=== PATIENT | male | born 1960 | race Caucasian/White ===

== ENCOUNTER 2024-11-29 10:17 | Outpatient (AMB) | payer MEDICARE, SELFPAY ==
--- OUTSIDE RECORDS SUMMARY | 2024-11-29 11:19 | XMS_ITS ---
[facility] Name [facility] Organization Unknown History of Medication Use Medication Directions Dispensed Refills Start Date End Date Stat No known medications No known medications 04/22/2024 active betamethasone acetate-betamethason e sodium phosphate (CELESTONE) injection 3 mg 3 mg, Intra-articular, Once PRN Procedure, Starting on Fri09/02/23 at 1000, For 1 dose 09/09/2023 completed Problems Problem Status Onset Date Problem Type Date of Resoluti on Source Leg pain, right active EncounterDiagnosisAct CCT
--- NOTE | 2024-11-29 11:26 | AM.OFFWIN_ITS ---
Intake Vital Signs 11/29/24 11:27 Weight 268 lb BP 110/74 Blood Pressure Location Rt brachial Position Sitting Pulse 97 Pulse Source Pulse Oximeter Temp 98.8 F Temp Source Oral Pulse Oximetry (%) 96 Oxygen Delivery Method Room Air Intake Visit Reasons: EP Congestion, aches, fatigue, cough Intake Note: Patient here for cough, wheezing,eye pressure, nausea and SOB that has been present since over the weekend. Patient Tobacco Use Status: Never used Tobacco Allergies morphine [Morphine] Allergy (Unknown, Unverified 11/29/24 11:50) ITCH Medication List - Last Reconciled 11/29/24 by Shala Posada PA-C amlodipine 10 mg PO DAILY atorvastatin 40 mg PO DAILY gabapentin 300 mg PO BEDTIME tamsulosin 0.4 mg PO BEDTIME Do you need a note to return to daycare/school/sports/work: No HPI EP Congestion, aches, fatigue, cough HPI Details The patient is a 64-year-old male presenting with shortness of breath and a cough with phlegm. Symptoms initiated last Friday with a sore throat, progressively worsening to include substantial chest phlegm and lethargy, with improvements when drinking hot coffee. The patient experiences sinus pressure characterized by pain in the orbicular sockets, as if force were exerted on the eyes, accompanied by headaches attributed to this pressure. While there were no fever episodes, the patient reports postnasal drip and persistent phlegm in the throat and chest. The cough is productive, and the patient uses coffee to help loosen mucus. No recent illness or travel exposure is noted, and there have been no incidences of vomiting or other gastrointestinal symptoms. The patient denies any history of COPD or asthma and reported no smoking. No history of congestive heart failure is present. Denies CP, FRANCIS, orthopnea, N/V/D, black or bloody stools or any other symptoms complaints or concerns at this time. [facility] Social History Patient Tobacco Use Status: Never used Tobacco Review of Systems Const Details: - Respiratory: Reports wheezing, particularly when lying down. - Cardiovascular: Denies chest pain, shortness of breath, or leg swelling. - Gastrointestinal: Denies black or bloody stools, vomiting. - General: Reports feeling lethargic. Physical Exam Vital Signs: Last Vital Signs Temp 98.8 F 11/29/24 11:27 Pulse 97 11/29/24 11:27 BP 110/74 11/29/24 11:27 Pulse Ox 96 11/29/24 11:27 Oxygen Delivery Method Room Air 11/29/24 11:27 Const Other: Appearance: Alert. Oriented X3. No acute distress. Head: Normal external exam. Normocephalic. Atraumatic. Sinus pressure pain noted. Eyes: Pupils are equal, round, and reactive to light. Extraocular movements intact. Conjunctiva and sclera normal. Eyelids normal. Sockets and eyeballs are very sore. Ears: External auditory canal normal. Tympanic membranes normal. Throat: Pharynx normal. Uvula midline. Moist mucous membranes. No trismus noted. No drooling noted. No muffled voice noted. Throat soreness noted. Neck: Normal inspection. Neck supple. Full range of motion. No adenopathy. Thyroid Normal. No meningeal signs. No neck mass noted. Cardiovascular: Normal heart rate and rhythm. Heart sound normal. No murmurs noted. Pulses normal throughout. Respiratory: No respiratory distress. Painless inspiration. Breath sounds normal. Wheezing noted when lying down. Chest nontender. No accessory muscle usage noted or decreased air movement noted. Back: No costovertebral angle tenderness. Full range of motion noted. Skin: Skin warm and dry. Normal skin color. Normal skin turgor. No rashes/lesions/lacerations noted. Extremities: No lower extremity edema. Extremities exhibit normal range of louise on. Extremities nontender. History of reconstructive surgery on the Achilles tendon noted. Neuro: Oriented X 3. No motor deficit. No sensory deficit. Reflexes normal. Assessment & Plan Assessment & Plan (1) Bronchitis: Code(s): J40 - Bronchitis, not specified as acute or chronic Plan: - Initiate Augmentin Amoxicillin/Clavulanate) 875 mg, twice daily for 10 days. - Prescribe a Z-Enoc Azithromycin) with a loading dose of two tablets on the first day, followed by one tablet daily for the next four days. - Recommend Prednisone 40 mg daily for five days. - Prescribe Albuterol inhaler for symptomatic wheezing relief. - Proceed with medications and evaluate improvement before considering additional diagnostics such as chest X-ray if symptoms persist. I discussed with the patient the possible diagnosis of acute bronchitis and sinusitis contributing to his symptoms of cough, phlegm, and sinus pressure. I explained the treatment plan involving prescribed antibiotics to address the likely bacterial infection and steroids to reduce inflammation in the airways. The patient was advised on using an Albuterol inhaler to alleviate any episodes of wheezing. I reviewed the benefits and potential side effects of the medications and the importance of adherence to the regimen. The patient consented to this management plan, understanding the follow-up procedures if symptoms do not improve. Patient was informed and verbally consented to the use of an ambient scribe for clinic note documentation during this visit. Plan Augmentin 875 mg BID x 10 days, zpack, albuterol inhaler and steroids x 5 days Patient Instructions: - Take Augmentin as directed, twice a day for 10 days. - Start Z-Enoc today with two tablets, then switch to one tablet daily for four more days. - Use Prednisone daily for five days and complete the course. - Use the Albuterol inhaler as needed for wheezing. - Monitor symptoms; if no improvement, return for further evaluation. - Report any new or worsening symptoms promptly. Coding Level of Care Code New Pt Level 4 (45927) Diagnoses Bronchitis J40
[2024-11-29 11:27] VITALS: BP 110/74; PULSE 97; TEMP 37.1; O2SAT 96
== END 2024-11-29 12:29 | disposition home or self-care (01) ==
PROVIDERS: Visit Provider Physician Assistant Medical
DX: J40 Bronchitis, not specified as acute or chronic (principal)

== ENCOUNTER → 2024-11-29 10:17 | Outpatient (BNVA) | payer MEDICARE, SELFPAY | PROVIDERS: Visit Provider Physician Assistant Medical | DX: J40 Bronchitis, not specified as acute or chronic (principal) | CPT/HCPCS: 99202 ==

== ENCOUNTER 2025-01-11 08:05 | Emergency (ER) | payer MEDICARE, SELFPAY ==
--- NOTE | ~2025-01-11 | CT_ITS ---
EXAMINATION: CT HEAD WITHOUT CONTRAST CLINICAL INFORMATION: fall on ice +head stirke COMPARISON: CT report dated July 21, 2012. TECHNIQUE: Contiguous axial imaging was performed from the skull base to vertex without intravenous administration of contrast. This CT examination was performed using dose optimization techniques as appropriate, variously including the following: *Automated exposure control *Adjustment of mA and/or kV according to patient size (this includes techniques or standardized protocols for targeted exams where dose is matched to indication/reason for exam; i.e. extremities or head) *Use of iterative reconstruction technique DLP: 939.88 mGy-cm FINDINGS: Bony calvarium is intact. Skull base is intact. No acute intracranial hemorrhage, mass effect, midline shift, hydrocephalus or herniation. Multifocal patchy and confluent deep periventricular white matter hypodensities involving centrum semiovale and melgar radiata, the most conspicuous in the left frontal region. Old lacunar infarcts, basal ganglia and extracapsular. Posterior cranial fossa contents demonstrated no acute intracranial hemorrhage or mass effect. Calcified plaques in the cavernous supraclinoid segments both ICA. Sellar/suprasellar region demonstrated no gross masses or hemorrhage. Craniocervical junction is intact with normal alignment. No air-fluid levels in the included paranasal sinuses. Tympanic cavities and mastoid cells are aerated. CT/CT head/brain wo IV con IMPRESSION: No acute fracture, bony calvarium. No acute intracranial hemorrhage. Small vessel occlusive disease. Superimposed acute stroke/nonhemorrhagic ischemia cannot be excluded. Electronically signed by: Seth Akers MD 01/11/2025 01:18 PM [facility] [place]
--- NOTE | ~2025-01-11 | CT_ITS ---
EXAMINATION: CT CERVICAL SPINE WITHOUT CONTRAST CLINICAL INFORMATION: Fall on ice, neck pain. COMPARISON: None available. TECHNIQUE: Spiral CT imaging of the cervical spine performed in axial plane without contrast. Multiplanar reformatted images were constructed from the axial data set. This CT examination was performed using dose optimization techniques as appropriate, variously including the following: *Automated exposure control *Adjustment of mA and/or kV according to patient size (this includes techniques or standardized protocols for targeted exams where dose is matched to indication/reason for exam; i.e. extremities or head) *Use of iterative reconstruction technique FINDINGS: CORONAL ALIGNMENT: -Normal SAGITTAL ALIGNMENT: -Normal C1-C2 AND CRANIOCERVICAL JUNCTION: -Intact and aligned. VERTEBRAL BODIES AND FACETS: -No fracture, compression deformity, traumatic subluxation, or suspicious bone lesion. -Normal facet alignment. Mild degenerative facet changes most notable bilaterally at C3-4. DISCS: -Mild to moderate disc space degeneration C5-6 and C6-7 with mild ventral disc osteophytic spurs. PREVERTEBRAL AND PARAVERTEBRAL SOFT TISSUES: -Normal. -Mildly heterogeneous thyroid with no discrete nodules seen. LUNG APICES: -Clear bilaterally. CT/CT cervical spine wo IV con IMPRESSION: 1. No CT evidence of acute cervical spine fracture or injury. Electronically signed by: Emil Gonzales MD 01/11/2025 01:19 PM [facility]
--- NOTE | ~2025-01-11 | XR_ITS ---
EXAMINATION: XR RIBS, LEFT CLINICAL INFORMATION: L rib pain COMPARISON: None available. TECHNIQUE: PA chest and 5 views of the left ribs were obtained. FINDINGS: Lungs are clear. No consolidation, pneumothorax, or pleural effusion. The cardiomediastinal silhouette and pulmonary vasculature are normal. Osseous structures are unremarkable. Ribs are intact. No fractures are identified. Mild calcific tendinopathy of the left rotator cuff. XR/XR ribs LT min 3V w CXR1V IMPRESSION: No acute findings in the thorax. Ribs appear intact. Electronically signed by: Emil Gonzales MD 01/11/2025 01:03 PM [facility]
--- NOTE | ~2025-01-11 | XR_ITS ---
EXAMINATION: XR SHOULDER, LEFT CLINICAL INFORMATION: fall, pain COMPARISON: None available. TECHNIQUE: Three views of the left shoulder. FINDINGS: Normal bone mineralization. No fracture, dislocation, or suspicious bone lesion. Normal alignment. The glenohumeral joint demonstrates mild to moderate degenerative arthritis with small undersurface spurs. There is subtle chondrocalcinosis present suggesting CPPD. Mild superior surface spurring of the AC joint. There is a neutral lateral acromion. No undersurface spurring. The subacromial space is preserved. Mild to moderate calcification of the supraspinatus tendon abutting the footplate insertion. Remainder of the soft tissue and bony structures appear normal. XR/XR shoulder LT min 2V IMPRESSION: 1. No fracture or dislocation. 2. Mild to moderate calcific tendinopathy of the supraspinatus tendon. 3. Mild to moderate degenerative arthritis in the glenohumeral joint. Subtle chondrocalcinosis. Electronically signed by: Emil Gonzales MD 01/11/2025 08:52 AM [facility]
[2025-01-11 08:06] VITALS: BP 154/100; PULSE 86; RESP 20; TEMP 35.4; O2SAT 98; BMI 33.4
--- OUTSIDE RECORDS SUMMARY | 2025-01-11 09:08 | XMS_ITS | Encounter Summary ---
Author Organization [facility] Address [address] [place] [address] Care Team Providers Care Science Specialist Name Role Phone Denver Arora MD Primary Care Provider [phone] Pcp, No Primary Care Provider Artemio Pino MD Primary Care Provider [phone] Encounter Details Date Type Department Care Team (Late st Contact Info) Description 08/20/2023 Scanned Document [place] [address] Chino Pereira MD [address] [place] [address] Social History Tobacco Use Types Packs/Day Years Used Date Smoking Tobacco: Never Assessed Sex and Gender Information Value Date Recorded Sex Assigned at Not on file Gender Identity Not on file Sexual Orientation Not on file documented as of this encounter Plan of Treatment Not on file documented as of this encounter Visit Diagnoses Not on filedocumented in this encounter Care Teams Science Specialist Relationship Specialty Start Date End Date Denver Arora MD [address] [place] [id number] PCP - General 06/17/23 04/19/24 Pcp, No PCP - General General Medicine 04/20/24 05/10/24 Artemio Carney MD [address] [place] [id number] PCP - General Internal Medicine 05/11/24 documented as of this encounter
--- OUTSIDE RECORDS SUMMARY | 2025-01-11 09:08 | XMS_ITS | Encounter Summary ---
Author Organization [facility] Address [address] [place] [address] Care Team Providers Care Intake Coordinator Name Role Phone Denver Arora MD Primary Care Provider [phone] Pcp, No Primary Care Provider Atremio Pino MD Primary Care Provider [phone] Encounter Details Date Type Department Care Team (Late st Contact Info) Description 08/20/2023 Scanned [place] [address] Chino Pereira MD [address] [place] [address] Social History Tobacco Use Types Packs/Day Years Used Date Smoking Tobacco: Never Assessed Sex and Gender Information Value Date Recorded Sex Assigned at Not on file Gender Identity Not on file Sexual Orientation Not on file documented as of this encounter Plan of Treatment Not on file documented as of this encounter Visit Diagnoses Not on filedocumented in this encounter Care Teams Intake Coordinator Relationship Specialty Start Date End Date Denver Arora MD [address] [place] [id number] PCP - General 06/17/23 04/19/24 Pcp, No PCP - General General Medicine 04/20/24 05/10/24 Atremio Carney MD [address] [place] [id number] PCP - General Internal Medicine 05/11/24 documented as of this encounter
--- OUTSIDE RECORDS SUMMARY | 2025-01-11 09:08 | XMS_ITS | Encounter Summary ---
Author Organization [facility] Address [address] [place] [address] Care Team Providers Care Employee Relations Consultant Name Role Phone Denver Arora MD Primary Care Provider [phone] Pcp, No Primary Care Provider Artemio Pino MD Primary Care Provider [phone] Encounter Details Date Type Department Care Team (Late st Contact Info) Description 08/29/2023 Scanned [place] [address] Chino Pereira MD [address] [place] [address] Social History Tobacco Use Types Packs/Day Years Used Date Smoking Tobacco: Never Assessed Sex and Gender Information Value Date Recorded Sex Assigned at Not on file Gender Identity Not on file Sexual Orientation Not on file documented as of this encounter Plan of Treatment Not on file documented as of this encounter Visit Diagnoses Not on filedocumented in this encounter Care Teams Employee Relations Consultant Relationship Specialty Start Date End Date Denver Arora MD [address] [place] [id number] PCP - General 06/17/23 04/19/24 Pcp, No PCP - General General Medicine 04/20/24 05/10/24 Artemio Carney MD [address] [place] [id number] PCP - General Internal Medicine 05/11/24 documented as of this encounter
--- OUTSIDE RECORDS SUMMARY | 2025-01-11 09:08 | XMS_ITS | Encounter Summary ---
Author Organization [facility] Address [address] [place] [address] Care Team Providers Care Bakery Worker Conveyor Line Name Role Phone Denver Arora MD Primary Care Provider [phone] Pcp, No Primary Care Provider Artemio Pino MD Primary Care Provider [phone] Encounter Details Date Type Department Care Team (Late st Contact Info) Description 06/02/2023 Scanned [place] [address] Chino Pereira MD [address] [place] [address] Social History Tobacco Use Types Packs/Day Years Used Date Smoking Tobacco: Never Assessed Sex and Gender Information Value Date Recorded Sex Assigned at Not on file Gender Identity Not on file Sexual Orientation Not on file documented as of this encounter Plan of Treatment Not on file documented as of this encounter Visit Diagnoses Not on filedocumented in this encounter Care Teams Bakery Worker Conveyor Line Relationship Specialty Start Date End Date Denver Arora MD [address] [place] [id number] PCP - General 06/17/23 04/19/24 Pcp, No PCP - General General Medicine 04/20/24 05/10/24 Artemio Carney MD [address] [place] [phone] PCP - General Internal Medicine 05/11/24 documented as of this encounter
--- OUTSIDE RECORDS SUMMARY | 2025-01-11 09:08 | XMS_ITS | Clinical Summary ---
Author Organization [facility] Address [address] [place] [address] Care Team Providers Care Beeswax Bleacher Name Role Phone Artemio Carney MD Primary Care Provider [phone] Allergies No known active allergies Medications No known medications Active Problems No known active problems Social History Tobacco Use Types Packs/Day Years Used Date Smoking Tobacco: Never Assessed Sex and Gender Information Value Date Recorded Sex Assigned at Not on file Gender Identity Not on file Sexual Orientation Not on file Plan of Treatment Health Maintenance Due Date Last Done Comments Hepatitis C Virus Screening 1959 HIV Screening 1972 DTaP/Tdap/Td Vaccines (1 - Tdap) 1978 Colonoscopy 2004 Pneumococcal Vaccines 50+ (1 of 1 - PCV) 2009 Zoster (Shingles) Vaccine (1 of 2) 2009 Influenza Vaccine 06/24/2024 09/15/2023, 09/15/2023 COVID-19 Vaccine (4 - 2023-2 5 season) 2024 10/12/2021, 12/20/2020, 11/22/2020 RSV Vaccine 60 years and older and Patients (1 - 1-dose 75+ series) 2034 Hepatitis B Vaccines Aged Out No long er eligible based on patient's age to complete this topic Care Teams Beeswax Bleacher Relationship Specialty Start Date End Date Artemio Carney MD [address] [place] [address] PCP - General Internal Medicine 05/11/24
--- OUTSIDE RECORDS SUMMARY | 2025-01-11 09:09 | XMS_ITS | Encounter Summary ---
Author Organization [facility] Address [address] [place] [address] Care Team Providers Care Wood Router Name Role Phone Pcp, Sangita Primary Care Provider Artemio Pino MD Primary Care Provider [phone] Encounter Details Date Type Department Care Team (Late st Contact Info) Description 04/27/2024 Scanned Document [facility] [address] Chino Pereira MD [address] [place] [address] Social History Tobacco Use Types Packs/Day Years Used Date Smoking Tobacco: Never Assessed Sex and Gender Information Value Date Recorded Sex Assigned at Not on file Gender Identity Not on file Sexual Orientation Not on file documented as of this encounter Plan of Treatment Not on file documented as of this encounter Visit Diagnoses Not on filedocumented in this encounter Care Teams Wood Router Relationship Specialty Start Date End Date Pcp, Sangita PCP - General General Medicine 04/20/24 05/10/24 Artemio Carney MD [address] [place] [address] PCP - General Internal Medicine 05/11/24 documented as of this encounter
--- OUTSIDE RECORDS SUMMARY | 2025-01-11 09:09 | XMS_ITS | Encounter Summary ---
Author Organization [facility] Address [address] [place] [address] Care Team Providers Care Small Offset Printer Name Role Phone Pcp, Sangita Primary Care Provider Artemio Pino MD Primary Care Provider Encounter Details Date Type Department Care Team (Late st Contact Info) Description 04/27/2024 Scanned Document [facility] [address] Chino Pereira MD [address] [place] [address] Social History Tobacco Use Types Packs/Day Years Used Date Smoking Tobacco: Never Assessed Sex and Gender Information Value Date Recorded Sex Assigned at Not on file Gender Identity Not on file Sexual Orientation Not on file documented as of this encounter Plan of Treatment Not on file documented as of this encounter Visit Diagnoses Not on filedocumented in this encounter Care Teams Small Offset Printer Relationship Specialty Start Date End Date Pcp, Sangita PCP - General General Medicine 04/20/24 05/10/24 Artemio Carney MD [address] [place] [address] PCP - General Internal Medicine 05/11/24 documented as of this encounter
--- OUTSIDE RECORDS SUMMARY | 2025-01-11 09:09 | XMS_ITS | Encounter Summary ---
Author Organization [facility] Address [address] [place] [address] Care Team Providers Care Clerical Order Filler Name Role Phone Artemio Carney MD Primary Care Provider [phone] Encounter Details Date Type Department Care Team (Late st Contact Info) Description 05/24/2024 Scanned Document [facility] [address] [place] [address] Ariela Riddle [address] [facility] [address] [place] [address] Social History Tobacco Use Types Packs/Day Years Used Date Smoking Tobacco: Never Assessed Sex and Gender Information Value Date Recorded Sex Assigned at Not on file Gender Identity Not on file Sexual Orientation Not on file documented as of this encounter Plan of Treatment Not on file documented as of this encounter Visit Diagnoses Not on filedocumented in this encounter Care Teams Clerical Order Filler Relationship Specialty Start Date End Date Artemio Carney MD [address] [place] [address] PCP - General Internal Medicine 05/11/24 documented as of this encounter
--- OUTSIDE RECORDS SUMMARY | 2025-01-11 09:09 | XMS_ITS | Encounter Summary ---
Author Organization [facility] Address [address] [place] [address] Care Team Providers Care Interior Surface Insulation Worker Name Role Phone Artemio Carney MD Primary Care Provider [phone] Encounter Details Date Type Department Care Team ([facility] st Contact Info) Description 05/18/2024 Scanned Document [facility] [place] [address] Chino Pereira MD [address] [place] [address] Social History Tobacco Use Types Packs/Day Years Used Date Smoking Tobacco: Never Assessed Sex and Gender Information Value Date Recorded Sex Assigned at Not on file Gender Identity Not on file Sexual Orientation Not on file documented as of this encounter Plan of Treatment Not on file documented as of this encounter Visit Diagnoses Not on filedocumented in this encounter Care Teams Interior Surface Insulation Worker Relationship Specialty Start Date End Date Artemio Carney MD [address] [place] [address] PCP - General Internal Medicine 05/11/24 documented as of this encounter
--- OUTSIDE RECORDS SUMMARY | 2025-01-11 09:09 | XMS_ITS | Encounter Summary ---
Author Organization [facility] Address [address] [place] [address] Care Team Providers Care Borough Coordinator Name Role Phone Artemio Carney MD Primary Care Provider [phone] Encounter Details Date Type Department Care Team (Late st Contact Info) Description 05/12/2024 Scanned Document [facility] [address] [place] [address] Ariela Riddle [address] [facility] [address] [place] [address] Social History Tobacco Use Types Packs/Day Years Used Date Smoking Tobacco: Never Assessed Sex and Gender Information Value Date Recorded Sex Assigned at Not on file Gender Identity Not on file Sexual Orientation Not on file documented as of this encounter Plan of Treatment Not on file documented as of this encounter Visit Diagnoses Not on filedocumented in this encounter Care Teams Borough Coordinator Relationship Specialty Start Date End Date Artemio Carney MD [address] [place] [address] PCP - General Internal Medicine 05/11/24 documented as of this encounter
--- OUTSIDE RECORDS SUMMARY | 2025-01-11 09:09 | XMS_ITS | Encounter Summary ---
Author Organization [facility] Address [address] [place] [address] Care Team Providers Care Tray Line Supervisor Name Role Phone Pcp, Sangita Primary Care Provider Artemio Pino MD Primary Care Provider [phone] Encounter Details Date Type Department Care Team (Late st Contact Info) Description 04/22/2024 Scanned Document [facility] [place] [address] Chino Pereira MD [address] [place] [address] Social History Tobacco Use Types Packs/Day Years Used Date Smoking Tobacco: Never Assessed Sex and Gender Information Value Date Recorded Sex Assigned at Not on file Gender Identity Not on file Sexual Orientation Not on file documented as of this encounter Plan of Treatment Not on file documented as of this encounter Visit Diagnoses Not on filedocumented in this encounter Care Teams Tray Line Supervisor Relationship Specialty Start Date End Date Pcp, Sangita PCP - General General Medicine 04/20/24 05/10/24 Artemio Carney MD [address] [place] [address] PCP - General Internal Medicine 05/11/24 documented as of this encounter
--- OUTSIDE RECORDS SUMMARY | 2025-01-11 09:09 | XMS_ITS | Encounter Summary ---
Author Organization [facility] Address [address] [place] [address] Care Team Providers Care Speech Lang Path Therapist Name Role Phone Pcp, Sangita Primary Care Provider Artemio Pino MD Primary Care Provider [phone] Encounter Details Date Type Department Care Team (Late st Contact Info) Description 05/10/2024 Scanned Document [facility] [address] Chino Pereira MD [address] [place] [address] Social History Tobacco Use Types Packs/Day Years Used Date Smoking Tobacco: Never Assessed Sex and Gender Information Value Date Recorded Sex Assigned at Not on file Gender Identity Not on file Sexual Orientation Not on file documented as of this encounter Plan of Treatment Not on file documented as of this encounter Visit Diagnoses Not on filedocumented in this encounter Care Teams Speech Lang Path Therapist Relationship Specialty Start Date End Date Pcp, Sangita PCP - General General Medicine 04/20/24 05/10/24 Artemio Carney MD [address] [place] [address] PCP - General Internal Medicine 05/11/24 documented as of this encounter
--- OUTSIDE RECORDS SUMMARY | 2025-01-11 09:09 | XMS_ITS | Clinical Summary ---
Author Organization [facility] it Address [address] [place] [address] Care Team Providers Care Setter Out Name Role Phone Artemio Carney MD Primary Care Provider Allergies No known active allergies Medications amLODIPine (NORVASC) 5 mg tablet Take 1 Tablet by mouth daily. 4 Active atorvastatin (LIPITOR) 40 mg tablet Take 1 Tablet by mouth daily. 4 Active gabapentin (NEURONTIN) 300 mg capsule TAKE 3 CAPSULES BY MOUTH EVERY DAY 4 Active hydroCHLOROthia zide (MICROZIDE) 12.5 mg capsule Take 1 Capsule by mouth every morning. 4 Active ibuprofen (ADVIL,MOTRIN) 800 mg tablet Take 1 Tablet by mouth every 8 hours as needed for Pain. 4 Active polyethylene glycol (Golytely) 236-22.74-6.74 -5.86 gram solution Take 4L by mouth once for one dose. May substitue any PEG. Starting at 6PM the night before your procedure drink 1 8oz glasses at your own pace until you complete half of the gallon. Finish 2nd half of the gallon 5 hours before your procedure. 4000 mL 5 Active bisacodyL (DULCOLAX) 5 mg EC tablet Take 2 tablets by mouth right before beginning bowel prep. See instructions provided by the office 2 tablet 5 Active Active Problems Problem Noted Date Diagnosed Date Effusion of right knee 05/26/2023 Injury of right Achilles tendon 05/22/2023 Benign prostatic hyperplasia with urinary hesita ncy 09/14/2020 Overview (11/22/2024): Follows with [facility] urology. Cervical adenopathy 12/24/2019 Thyroid nodule 03/09/2019 Adrenal adenoma 12/31/2017 Overview (11/22/2024): Bilateral adrenal adenomas on CT scan of 12/29/2017. 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 Two polyps in the distal rectum. Dr. Varner. Acid reflux 10/13/2015 Overview (11/22/2024): Reflux Immunizations Name Administration Dates Next Due Influenza Quadravalent, MDCK , 0.5ml, preservative free (Flucelvax) 6mo and older 09/15/2023 Influenza Quadravalent, MDCK , 0.5ml, with preservative (Flucelvax) 6mo and older 09/08/2017 Influenza trivalent, 0.5mL, preservative free (Fluarix; FluLaval; Fluzone) ages 6mo and older (Afluria) 3 years and older 09/22/2024 Influenza, Unspecified 10/11/2022,09/24/2021,11/2017 Moderna (age 6mo & older) Bi valent, COVID-19, 0.5 mL or 0.25 mL dosage 12/09/2022 Moderna SARS-CoV-2 COVID-19, mRNA, LNP-S, preservative free 10/12/2021,12/20/2020,11/22/2020 Pneumococcal conjugate 20 va lent (Prevnar 20, PCV 20) 2mo and older 09/22/2024 Pneumococcal polysaccharide 23 valent (Pneumovax 23) 2yo and older 2012 Tdap Tetanus diptheria acell ular pertussis (Boostrix; Adacel) 7yo and older 06/25/2016 Surgical History Surgery Date Site/Laterality Comments OTHER SURGICAL HISTORY PROCEDURE: ---- OTHER ----; COMMENT: Excision basal cell carcinoma left arm OTHER SURGICAL HISTORY PROCEDURE: ---- OTHER ----; COMMENT: Left Achilles tendon repair CHOLECYSTECTOMY 06/16/09 PROCEDURE: HISTORICAL CHOLECYSTECTOMY; COMMENT: lapraroscopic HERNIA REPAIR 05/15/10 PROCEDURE: HISTORICAL HERNIA REPAIR/UMB OTHER SURGICAL HISTORY 06/06 PROCEDURE: MN OSTECTOMY CALCANEUS SPUR W/WO PLNTAR FASCIAL RLS COLONOSCOPY 06/02 PROCEDURE: HISTORICAL COLONOSCOPY; COMMENT: 2 tubular adenomas HERNIA REPAIR 01/30/2018 Left PROCEDURE: LAPAROSCOPY, INGUINAL HERNIA REPAIR COLONOSCOPY 08/26/2016 PROCEDURE: HISTORICAL COLONOSCOPY; COMMENT: Colon Polyps, diverticulosis, Internal & external hemorrhoids, Repeat 3-5 yrs OTHER SURGICAL HISTORY PROCEDURE: HISTORICAL CA BASAL CELL; COMMENT: BCC 02/11 right side of face (superficial and nodular) 10/09 right jaw (nodular) 06/06 left arm (nodular and superficial type) MOLE REMOVAL PROCEDURE: HISTORICAL MOLE (REMOVAL OF); COMMENT: Dysplastic nevus 10/09 back (moderate atypia) Medical History Medical History Date Comments Varicose veins 11/21/2015 DX:Varicose vein s Renal stones 11/21/2015 DX:Renal stones Hypertension 10/13/2015 DX:Hypertension Reflux 10/13/2015 DX:Reflux Tubular adenoma of colon 10/13/2015 DX:Tubu lar adenoma of colon; COMMENT: 06/02. Two polyps in the distal rectum. Dr. Varner. 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:Stewart's palsy; COMMENT: 07/05 Postherpetic neuralgia 10/13/2015 DX:Posthe rpetic neuralgia; COMMENT: Herpes zoster left face, 2012 Tobacco use disorder 10/13/2015 DX:Tobacco use disorder History of basal cell carcin kb of skin 11/21/2015 DX:History of basal cell car cinoma of skin; COMMENT: BCC 02/11 right side of face (superficial and nodular) 10/09 right jaw (nodular) 06/06 left arm (nodular and superficial type) History of DVT (deep vein thrombosis) 11/21/2015 DX:History of DVT (deep vein thrombosis); COMMENT: 2013 CKD (chronic kidney disease) stage 3, GFR 30-59 ml/min (CMS/HCC) 03/25/2019 DX:CKD (chronic kidney dise ase) stage 3, GFR 30-59 ml/min (HCC) Adrenal adenoma 12/31/2017 DX:Adrenal adeno ma; COMMENT: Bilateral adrenal adenomas on CT scan of 12/29/2017. Hyperlipidemia 06/25/2016 DX:Hyperlipidemi a; COMMENT: Total cholesterol 227, triglycerides 171, 04/07/2016 Thyroid nodule 03/09/2019 DX:Thyroid nodul e History of dysplastic nevus 01/22/2021 DX:H istory of dysplastic nevus; COMMENT: Dysplastic nevus 10/09 back (moderate atypia) Family History Medical History Relation Name Comments Other: Other Father Alzheimer's dis ease Other: Other Mother No active medic al problems Relation Name Status Comments Father Alive Mother Alive Social History Tobacco Use Types Packs/Day Years Used Date Smoking Tobacco: Former Cigarettes Q uit: 11/24/2016 Smokeless Tobacco: Never Alcohol Use Standard Drinks/Week Comments Yes 0 (1 standard drink = 0.6 oz pur e alcohol) Sex and Gender Information Value Date Recorded Sex Assigned at Not on file Legal Sex Male 1:43 AM EST Gender Identity Not on file Sexual Orientation Not on file Obstetrics History Last Filed Vital Signs Vital Sign Reading Time Taken Comments Blood Pressure 120/70 09/22/2024 1:18 PM EDT Pulse 95 09/22/2024 1:18 PM EDT Temperature - - Respiratory Rate - - Oxygen Saturation - - Inhaled Oxygen Concentration - - Weight 123 kg (270 lb 6.4 oz) 09/22/2024 1:18 PM EDT Height 190.5 cm (6' 3 ) 09/22/2024 1:18 PM EDT Body Mass Index 33.8 09/22/2024 1:18 PM EDT Plan of Treatment Upcoming Encounters Date Type Department Care Team (Late st Contact Info) Description 01/20/2025 3:30 PM EST Hospital Encounter [facility] [address] [place] [id number] Juan Baig MD [address] [facility] [address] [place] [address] Health Maintenance Due Date Last Done Comments Zoster Vaccines (1 of 2) 2009 Abdominal Aortic Aneurysm (AAA) Screen 11/02/2022 Colorectal Cancer Screening: Colonoscopy 11/02/2022 08/26/2016 Lung Cancer Screening (Low Dose CT) 11/02/2022 Medicare Annual Wellness Visit 11/02/2022 Social Influencers of Health Screening 11/02/2022 COVID-19 Vaccine ( season) 2024 12/09/2022, 10/12/2021, 12/20/2020, Additional history exists Depression Screening 09/22/2025 09/22/2024 Falls Risk Assessment 09/22/2025 09/22/2024 Hypertension/CHF/CAD Annual BMP Blood Test 09/22/2025 09/22/2024, 09/22/2024 DTaP,Tdap,and Td Vaccines (2 - Td or Tdap) 06/25/2026 06/25/2016 Cholesterol Screening (Lipid Panel) 09/22/2029 09/22/2024, 09/22/2024 RSV Immunization Patients 60+ Years Old (1 - 1-dose 75+ series) 2034 Hepatitis C Screening Completed 09/04/2016 Influenza Vaccine Completed 09/22/2024, , 10/11/2022, Additional history exists Pneumococcal Vaccine: 50+ Years Completed 09/22/2024, 2012 Pneumococcal Vaccine: Pediatrics (0 to 5 Years) and At-Risk Patients (6 to 64 Years) Aged Out 09/22/2024, 2012 No longer eligibl e based on patient's age to complete this topic HIB Vaccines Aged Out No longer eligi ble based on patient's age to complete this topic HPV Vaccines Aged Out No longer eligi ble based on patient's age to complete this topic Hepatitis A Vaccines Aged Out No long er eligible based on patient's age to complete this topic Hepatitis B Vaccines Aged Out No long er eligible based on patient's age to complete this topic IPV Vaccines Aged Out No longer eligi ble based on patient's age to complete this topic MMR Vaccines Aged Out No longer eligi ble based on patient's age to complete this topic Meningococcal ACWY Vaccine Aged Out N o longer eligible based on patient's age to complete this topic Meningococcal B Vacine Aged Out No lo nger eligible based on patient's age to complete this topic RSV Immunization Patients Under 20 months Aged Out No longer eligible based on patient's age to complete this topic Varicella Vaccines Aged Out No longer eligible based on patient's age to complete this topic Procedures Procedure Name Priority Date/Time Associated Diagnosis Comments DEPRESSION SCREENING Routine 09/22/2024 ANNUAL BMP BLOOD TEST Routine 09/22/2024 FALLS RISK ASSESSMENT Routine 09/22/2024 LIPID PANEL Routine 09/22/2024 HEPATITIS C SCREENING Routine 09/04/2016 COLONOSCOPY Routine 08/26/2016 from Last 3 Months or Most Recently Relevant to Health Maintenance Results * Annual BMP Blood Test (09/22/2024) Pathologist [facility] Annual BMP Blood Test abstracted us Historical Provider HEALTH MAINTENANCE Final Result * Falls Risk Assessment (09/22/2024) [facility] Falls Risk Assessment abstracted Historical Provider HEALTH MAINTENANCE Final Result * Depression Screening (09/22/2024) Pathologist [facility] Depression Screening abstracted us Historical Provider HEALTH MAINTENANCE Final Result * (ABNORMAL) Lipid panel (09/22/2024) [facility] LDL/HDL Ratio 3 0 - 4 Triglycerides 89 0 - 150 mg/dL Cholesterol 244(A) 0 - 200 mg/dL HDL 72 >=40 mg/dL LDL Cholesterol 155(A) 0 - 100 mg/dL Blood Venous blood specimen / Unknown [facility] Provider LAB BLOOD ORDERABLES Mis l Result * Hepatitis C Screening (09/04/2016) [facility] Hepatitis C Screening abstracted [facility] Provider HEALTH MAINTENANCE Final Result * Colonoscopy (08/26/2016) [facility] Colonoscopy no interpretation , abstracted Anatomical Region Laterality Modality Other [facility] Provider HEALTH MAINTENANCE Final Result from Last 3 Months or Most Recently Relevant to Health Maintenance Insurance MEDICARE [facility] Care Teams Setter Out Relationship Specialty Start Date End Date Artemio Carney MD PCP - General Internal Medicine 08/01/22
--- NOTE | 2025-01-11 10:13 | ED_ITS ---
HPI - Fall General Chief Complaint: Fall Stated Complaint: Fall yesterday - arm injury Time Seen by Provider: 01/11/25 09:10 Source: patient, family, RN notes reviewed and old records reviewed Mode of arrival: ambulatory History of Present Illness ED Provider: Juli Loya PA-C HPI Narrative: 64-year-old male with no significant past medical history presenting to the ED complaining of left shoulder pain and decreased ROM s/p mechanical slip and fall on ice yesterday. Admits to hitting head, denies LOC or anticoagulation use. Reports paresthesias to left hand, and radiation from shoulder to neck. Denies vision change or loss, nausea, vomiting, incontinence/retention Related Data Home Medications ?Medication ?Instructions ?Recorded ?Confirmed amlodipine 10 mg tablet 10 mg PO DAILY 11/29/24 11/29/24 atorvastatin 40 mg tablet 40 mg PO DAILY 11/29/24 11/29/24 gabapentin 300 mg capsule 300 mg PO BEDTIME 11/29/24 11/29/24 tamsulosin 0.4 mg capsule 0.4 mg PO BEDTIME 11/29/24 11/29/24 Previous Rx's ?Medication ?Instructions ?Recorded albuterol sulfate 90 mcg/actuation 1 inh inhalation QID PRN shortness 11/29/24 aerosol inhaler of breath or wheezing #6.7 grams amoxicillin 875 mg-potassium 1 tab PO BID 10 days #20 tabs 11/29/24 clavulanate 125 mg tablet azithromycin 250 mg tablet See Rx Instructions PO .COMPLEX #6 11/29/24 tabs prednisone 20 mg tablet 40 mg (2 x 20 mg) PO DAILY 5 days 11/29/24 #10 tabs acetaminophen 300 mg-codeine 30 mg 1 tab PO Q6H PRN pain (scale score 01/11/25 tablet 7-10) 3 days #9 tabs cyclobenzaprine 5 mg tablet 5 mg PO Q8H PRN pain (scale score 01/11/25 7-10) 5 days #14 tabs lidocaine 5 % topical patch 1 patch topical DAILY PRN pain #30 01/11/25 (Lidoderm) ea naproxen 500 mg tablet 500 mg PO BID PRN pain 10 days #20 01/11/25 tabs Allergies Allergy/AdvReac Type Severity Reaction Status Date / Time morphine [Morphine] Allergy Unknown ITCH Verified 01/11/25 08:11 Review of Systems Review of Systems: Yes all other systems are reviewed and are negative Constitutional: Constitutional: Reports as per [facility] Past Medical History Attestation statement: The following information was validated with the patient. Source: old records reviewed Social History Social History Patient Tobacco Use Status: Never used Tobacco Advance Directives: Yes Advance Directives on File: Yes Advance Directives Date on File: 01/11/25 Do you have a plan to hurt others: No Plan Physical Exam Vital Signs: Vital Signs: Last Vital Signs Temp 95.8 F L 01/11/25 13:42 Pulse 76 01/11/25 13:42 Resp 16 01/11/25 13:42 BP 120/72 01/11/25 13:42 Pulse Ox 97 01/11/25 13:42 O2 Del Method Room Air 01/11/25 13:42 BMI result Body Mass Index 33.4 Const: General: cooperative, healthy appearing and no acute distress Orientation/consciousness: patient oriented x3 Limitations: no limitations HEENT: Head: Yes normal to inspection and Yes atraumatic Ears: hearing grossly normal bilaterally General nose exam: Normal external nose present Face and sinus: Yes normal facial exam Eyes: General: appearance normal, both eyes and all related structures EOM: EOMs intact bilaterally Neck: Other: No midline cervical spinous tenderness. Left-sided trapezius muscle reproducible tenderness Neck: Yes normal visual inspection, Yes full ROM, Yes no meningeal signs and No anterior neck swelling Resp: Effort & Inspection: normal respiratory effort and no respiratory distress Cardio: Rate: regular rate Back/Spine/Pelvis: Other: No midline cervical/thoracic/lumbar spinous tenderness/step-off or deformity. + left-sided upper thoracic paraspinal/MSK reproducible tenderness. No evidence of flail chest. No erythema or ecchymosis. Skin: Rashes: no rashes Wounds: no wounds Neuro: General: patient oriented x3, tone normal and no meningeal signs Cranial nerves: Yes CN's II-XII intact bilaterally Gait exam (Neuro): Normal gait present Extrem: Other: Left shoulder with mild swelling. Diffusely tender to palpation > anteriorly. Limited ROM secondary to pain. Neurovascularly intact distally. No erythema/warmth Course Course Course Narrative: XR shoulder LT min 2V IMPRESSION: 1. No fracture or dislocation. 2. Mild to moderate calcific tendinopathy of the supraspinatus tendon. 3. Mild to moderate degenerative arthritis in the glenohumeral joint. Subtle chondrocalcinosis. 1329--XR ribs LT min 3V w CXR1V IMPRESSION: No acute findings in the thorax. Ribs appear intact. CT head/brain wo IV con IMPRESSION: No acute fracture, bony calvarium. No acute intracranial hemorrhage. Small vessel occlusive disease. Superimposed acute stroke/nonhemorrhagic ischemia cannot be excluded. > Low suspicion for acute CVA CT cervical spine wo IV con IMPRESSION: 1. No CT evidence of acute cervical spine fracture or injury. Results discussed with patient including worrisome signs and symptoms and strict return precautions, and when to return to the emergency department. They verbalized understanding and feel safe for discharge at this time. Medications Administered Discontinued Medications Generic Name Dose Route Start Last Admin Trade Name Freq PRN Reason Stop Dose Admin Acetaminophen/Codeine Phosphate 1 tab 01/11/25 09:59 01/11/25 10:59 Acetaminophen/Codeine 300-30mg Tablet PO 01/11/25 10:00 1 tab ONCE ONE Administration Medical Decision Making Medical Decision Making MDM Narrative: 64-year-old male with no significant past medical history presenting to the ED complaining of left shoulder pain and decreased ROM s/p mechanical slip and fall on ice yesterday. On exam hypertensive likely from pain, NAD/nontoxic appearing, physical exam as noted above. Concern for fracture vs strain vs tendinopathy/tendon/ligamental injury/tear. Rule out ICH. Lower suspicion for intrathoracic or intra-abdominal injury/bleeding Plan: Head/C-spine CT, x-rays, pain control Please refer to course for remaining clinical decision making, interpretation of labs/imaging results, and discussions with consultants and/or family members. Differential Diagnosis Differential Diagnoses: The differential diagnosis associated with the presentation includes As above Independent Interpretation I performed an independent interpretation of an: Plain X-Ray and CT Scan Radiology Impression Discussion of test interpretation with radiology: I have reviewed the radiologist's reading. Independent Historian Clinical information obtained from an independent historian. History obtained from or confirmed by: Other External Record Review External record reviewed: Inpatient record, Office record, Outpatient record, Prior outpatient labs, Prior outpatient radiology, Primary care record and Outside ED record Tests considered The following testing was considered but not selected: As above Prescription Management I considered prescription management with: Pain Medication Chronic Conditions Patient?s care impacted by: Other Social Determinants Patient?s care significantly limited by Social Determinants of Health including: Other Social Determinant of Health Discharge Plan Discharge Clinical Impression: Calcific tendinitis, Arthritis Patient Disposition: Home, Self-Care Instructions: Osteoarthritis (DC), Tenosynovitis (ED) Additional Instructions: Your x-ray shows calcific tendinopathy of her supraspinatus tendon as well as degenerative arthritis. Please have close follow-up with your primary care doctor and Orthopedics, you likely need an MRI You sling as needed however do not wear 16/06, you need to still range of motion your arm or you can develop frozen shoulder The CT scan of your head showed small vessel occlusive disease, please have follow up with her primary care doctor in regards to this Your pain is likely musculoskeletal Flexeril is a muscle relaxer, take at night as it makes you drowsy, do not drive, drink alcohol, or operate machinery while taking it Naproxen as an anti-inflammatory / pain medication, take with food Lidoderm patches are numbing patches, apply to painful area Tylenol with codeine as an opiate pain medication, take only when pain is severe for the next 3 days If symptoms persist or worsen, pain becomes unbearable, you developed urinary retention or incontinence, or weakness return to the ED Prescriptions: New lidocaine [Lidoderm] 5 % adhesive patch,medicated 1 patch topical DAILY MDD remove after 12 hours PRN (Reason: pain) Qty: 30 0RF Rx Instructions: leave on most painful area for up to 12 hrs naproxen 500 mg tablet 500 mg PO BID PRN (Reason: pain) 10 Days Qty: 20 0RF cyclobenzaprine 5 mg tablet 5 mg PO Q8H PRN (Reason: pain (scale score 7-10)) 5 Days Qty: 14 0RF acetaminophen-codeine 300-30 mg tablet 1 tab PO Q6H PRN (Reason: pain (scale score 7-10)) 3 Days Qty: 9 0RF No Action gabapentin 300 mg capsule 300 mg PO BEDTIME amlodipine 10 mg tablet 10 mg PO DAILY atorvastatin 40 mg tablet 40 mg PO DAILY tamsulosin 0.4 mg capsule 0.4 mg PO BEDTIME amoxicillin-pot clavulanate 875-125 mg tablet 1 tab PO BID 10 Days Qty: 20 0RF azithromycin 250 mg tablet See Rx Instructions PO .COMPLEX Qty: 6 0RF Rx Instructions: For 250 mg dose pack: take 500 mg today (day 1), then 250 mg for 4 days (days 2-5) PO prednisone 20 mg tablet 40 mg PO DAILY 5 Days Qty: 10 0RF albuterol sulfate 90 mcg/actuation HFA aerosol inhaler 1 inh inhalation QID PRN (Reason: shortness of breath or wheezing) Qty: 6.7 0RF Referrals: [facility] [Provider Group] - 1 week Artemio Carney MD [Primary Care Provider] - 5 days Interventions: ED Discharge Assessment Last Done: 01/11/25 13:42 Discharge Date/Time: 01/11/25 13:43 Print Language: Danish
[2025-01-11] MEDS: Acetaminophen/Codeine 300-30mg Tablet 1 TAB PO (10:59)
[2025-01-11 11:53] VITALS: BP 120/72; PULSE 76; RESP 16; O2SAT 97
[2025-01-11 13:42] VITALS: BP 120/72; PULSE 76; RESP 16; TEMP 35.4; O2SAT 97
== END 2025-01-11 13:43 | disposition home or self-care (01) ==
PROVIDERS: Emergency Provider Emergency Medicine Emergency Medical Services; PCP Internal Medicine
DX: M75.32 Calcific tendinitis of left shoulder (principal); M19.012 Primary osteoarthritis, left shoulder; M25.512 Pain in left shoulder; Z91.81 History of falling
CPT/HCPCS: 70450; 71101; 72125; 73030; 99284

== ENCOUNTER → 2025-01-11 08:14 | Outpatient (BNV) | payer MEDICARE, SELFPAY | PROVIDERS: PCP Internal Medicine; Visit Provider Radiology Diagnostic Radiology | DX: M47.812 Spondylosis without myelopathy or radiculopathy, cervical region (principal); I67.89 Other cerebrovascular disease; M75.32 Calcific tendinitis of left shoulder; M19.012 Primary osteoarthritis, left shoulder | CPT/HCPCS: 70450; 71101; 72125; 73030 ==

== ENCOUNTER 2025-02-12 07:30 | Emergency (ER) | payer MEDICARE, SELFPAY ==
--- NOTE | ~2025-02-12 | XR_ITS ---
CLINICAL HISTORY: constipating 1 view abdomen Comparison: None Findings: No pneumoperitoneum or pneumatosis. No abnormal calcifications. No acute fractures. IMPRESSION: Normal bowel gas pattern This document has been electronically signed by: Tyson Ring MD on 02/12/2025 08:24:39
--- NOTE | ~2025-02-12 | CT_ITS ---
CLINICAL HISTORY: R flank pain, hx stones CT abdomen and pelvis without contrast Comparison: None Findings: No consolidation or effusion. There is a 4 mm rounded calculus at the right ureterovesicular junction with moderate right hydroureteronephrosis and stranding about the right kidney. Several additional tiny collecting system calculi are present bilaterally. The gallbladder is surgically absent. The liver exhibits a few tiny low-density lesions, too small to characterize but likely cysts. The spleen, adrenal glands, pancreas, small and large bowel demonstrate no acute process. The appendix is normal. There is diverticulosis without diverticulitis. There is moderate atherosclerotic disease. No acute osseous finding. Impression: 4 mm rounded calculus at the right ureterovesicular junction with moderate right hydroureteronephrosis. Additional nonobstructing calculi bilaterally Incidental findings This document has been electronically signed by: Silvio Loyd MD on 02/12/2025 10:14:11
[2025-02-12 07:36] VITALS: BP 145/85; PULSE 96; RESP 20; TEMP 36.6; O2SAT 96; BMI 33.8
[2025-02-12 08:11] LABS: MANUAL DIFF FLAG NO
[2025-02-12 08:13] LABS: Basophils Percent Auto 0.4 % (0-2); Eosinophils Absolute Auto 0.2 X10*3/uL (0.0-0.4); Eosinophils Percent Auto 1.9 % (0-4); Hematocrit 41.8 % (42.0-52.0); Hemoglobin 14.7 g/dl (14.0-18.0); Imm Gran Abs Auto 0.05 X10*3/uL (0.00-0.03); Imm Gran Pct Auto 0.5 % (0.0-0.4); Lymphocytes Absolute Auto 1.8 X10*3/uL (1.2-4.9); Lymphocytes Percent Auto 16.3 % (20-40); Mean Corpuscular HGB Conc 35.2 g/dl (31.0-36.0); Mean Corpuscular Hemoglobin 29.3 pg (27.0-33.0); Mean Corpuscular Volume 83.4 fL (80.0-98.0); Mean Platelet Volume 9.7 fL (9.4-12.4); Monocytes Absolute Auto 1.1 X10*3/uL (0.1-1.2); Monocytes Percent Auto 10.4 % (2-11); Neutrophils Absolute Auto 7.6 x10*3/uL (2.0-8.3); Neutrophils Percent Auto 70.5 % (45-73); Platelet Count 222 X10*3/uL (160-400); Red Blood Count 5.01 X10*6/uL (4.60-5.80); Red Cell Distribution Width 14.2 % (11.0-16.0); White Blood Count 10.8 X10*3/uL (4.8-10.8)
[2025-02-12 08:19] LABS: Appearance Urine Cloudy; Color Urine Yellow; Glucose Urine UA Negative (Negative); Leukocyte Esterase Urine Large (3+) (Negative); Nitrite Urine Negative (Negative); UMIC TRIGGER UACC YES; Urine Blood Large (3+) (Negative); Urine Ketones Negative (Negative); Urine Protein Trace mg/dL (Neg-Trace)
[2025-02-12 08:24] LABS: Bacteria Urine None Seen (None Seen); RBC Urine >20 /HPF (0-2); Squamous Epithelial Cell Urine >20 /HPF (0-2); UACC Culture Trigger YES; WBC Urine >50 /HPF (0-5)
[2025-02-12 08:42] LABS: Anion Gap 14 (12-20); Blood Urea Nitrogen 21 mg/dL (9-16); Calcium 9.1 mg/dL (8.4-10.2); Carbon Dioxide 24 mmol/L (22-29); Chloride 107 mmol/L (96-108); Creatinine Clr Calc Pharmacy 70.6; Estimated Glomerular Filt Rate 48; Glucose Random 116 mg/dL (60-115); Lipase 24 U/L (8-78); Magnesium 2.2 mg/dL (1.6-2.6); Potassium 3.5 mmol/L (3.3-5.1); Sodium 141 mmol/L (135-145)
[2025-02-12 08:53] VITALS: BP 143/77; PULSE 74; RESP 20; TEMP 36.6; O2SAT 93
--- NOTE | 2025-02-12 08:57 | ED_ITS ---
HPI - General Adult General Chief complaint: General Medical Stated complaint: R sided pain Time Seen by Provider: 02/12/25 08:55 Source: patient, RN notes reviewed and old records reviewed Mode of arrival: ambulatory Limitations: no limitations History of Present Illness ED Provider: Debby GIPSON narrative: Patient is a 64-year-old male presenting to the emergency department with complaint of right flank radiating to right lower quadrant pain for the past 4 days. States pain has been progressively worsening. Complains of nausea without vomiting. Also reports constipation but states he has been taking Vicodin for recent rotator cuff surgery. Denies diarrhea. Denies dysuria, frequency, hematuria. Reports some increased pain with urination. States pain is colicky. Denies fevers. MD complaint: R flank/ R abd pain Onset (ago): day(s) Severity: severe Quality: sharp Pain Consistency: colicky Associated symptoms: denies other symptoms Treatments prior to arrival: none Related Data Home Medications ?Medication ?Instructions ?Recorded ?Confirmed amlodipine 10 mg tablet 10 mg PO DAILY 11/29/24 11/29/24 atorvastatin 40 mg tablet 40 mg PO DAILY 11/29/24 11/29/24 gabapentin 300 mg capsule 300 mg PO BEDTIME 11/29/24 11/29/24 tamsulosin 0.4 mg capsule 0.4 mg PO BEDTIME 11/29/24 11/29/24 Previous Rx's ?Medication ?Instructions ?Recorded albuterol sulfate 90 mcg/actuation 1 inh inhalation QID PRN shortness 11/29/24 aerosol inhaler of breath or wheezing #6.7 grams amoxicillin 875 mg-potassium 1 tab PO BID 10 days #20 tabs 11/29/24 clavulanate 125 mg tablet azithromycin 250 mg tablet See Rx Instructions PO .COMPLEX #6 11/29/24 tabs prednisone 20 mg tablet 40 mg (2 x 20 mg) PO DAILY 5 days 11/29/24 #10 tabs acetaminophen 300 mg-codeine 30 mg 1 tab PO Q6H PRN pain (scale score 01/11/25 tablet 7-10) 3 days #9 tabs cyclobenzaprine 5 mg tablet 5 mg PO Q8H PRN pain (scale score 01/11/25 7-10) 5 days #14 tabs lidocaine 5 % topical patch 1 patch topical DAILY PRN pain #30 01/11/25 (Lidoderm) ea naproxen 500 mg tablet 500 mg PO BID PRN pain 10 days #20 01/11/25 tabs morphine 15 mg immediate release 15 mg PO Q8H PRN severe pain 02/12/25 tablet (scale score 7-10) #9 tabs ondansetron 4 mg disintegrating 4 mg PO Q8H PRN nausea and 02/12/25 tablet vomiting #10 tabs prednisone 20 mg tablet 20 mg PO DAILY #7 tabs 02/12/25 sennosides 8.6 mg-docusate sodium 1 tab-cap PO BID PRN constipation 02/12/25 50 mg capsule #14 caps Allergies Allergy/AdvReac Type Severity Reaction Status Date / Time morphine [Morphine] Allergy Unknown ITCH Verified 02/12/25 07:47 Review of Systems 2 Review of Systems: As per HPI Yes all other systems are reviewed and are negative Constitutional: Constitutional: Reports as per HPI [facility] Social History Social History Patient Tobacco Use Status: Never used Tobacco Smoked in Last 30 Days: No Use of substances other than those prescribed or required for medical reasons: No Advance Directives: Yes Advance Directives on File: Yes Advance Directives Date on File: 01/11/25 Physical Exam ED Vital Signs: Vital Signs - 24 hr 02/12/25 07:36 02/12/25 08:53 02/12/25 09:12 Temperature 98 F 97.8 F Pulse Rate 96 74 Respiratory Rate 20 20 18 Blood Pressure 145/85 H 143/77 H Pulse Oximetry 96 93 Oxygen Delivery Method Room Air Room Air BMI result Body Mass Index 33.8 Vital signs have been reviewed and appear to be correct. Blood pressure normal. Heart rate normal. Respiratory rate normal. Temperature normal. Oxygen saturation normal. Const General: cooperative, healthy appearing and no acute distress Orientation/consciousness: oriented to person, oriented to place, oriented to time and patient oriented x3 Limitations: no limitations HENMT Head: Yes normocephalic and Yes atraumatic Ears: external ears normal General nose exam: Normal external nose present Face and sinus: Yes face symmetric Mouth: oropharynx normal and moist mucous membranes Throat: Yes uvula midline Eyes Pupils: Equal, round and reactive pupils present Neck Neck: Yes normal visual inspection and Yes supple Resp Effort & Inspection: normal respiratory effort and able to speak in complete sentences Auscultation: clear to auscultation bilaterally Cardio Rate: regular rate Rhythm: regular rhythm Heart sounds: S1 normal heart sound present and S2 normal heart sound present GI Palpation (GI): Soft to palpation and Tenderness to palpation present (GI) in the RLQ (as well as right flank) Auscultation: normoactive bowel sounds General: Yes no CVA tenderness Back/Spine/Pelvis Back: no CVA tenderness Skin General skin exam: elasticity normal and turgor normal Neuro General: oriented to person, oriented to place, oriented to time, patient oriented x3, moves all extremities, no focal motor deficits and CN's II-XI intact bilaterally Cranial nerves: Yes Equal, round and reactive pupils present Cognition (Neuro): normal cognition Extrem General: Yes full ROM, Yes no pedal edema and Yes no calf tenderness Psych Mental Status: mental status grossly normal Affect: normal affect Thought process: Normal thought process present Medications Administered Discontinued Medications Generic Name Dose Route Start Last Admin Trade Name Freq PRN Reason Stop Dose Admin Sodium Chloride 1,000 mls @ 999 mls/hr 02/12/25 09:00 02/12/25 09:11 Ns IV 02/12/25 10:00 999 mls/hr .Q1H1M KESHAV Administration Ketorolac Tromethamine 15 mg 02/12/25 09:00 02/12/25 09:12 Ketorolac Tromethamine 15 Mg/Ml Vial IVPUSH 02/12/25 09:01 15 mg ONCE ONE Administration Morphine Sulfate 4 mg 02/12/25 09:00 02/12/25 09:12 Morphine Sulfate 4 Mg/Ml Cartridge IVPUSH 02/12/25 09:01 4 mg ONCE ONE Administration Protocol Ondansetron HCl 4 mg 02/12/25 09:00 02/12/25 09:11 Ondansetron Hcl 4 Mg/2 Ml Vial IVPUSH 02/12/25 09:01 4 mg ONCE ONE Administration Medical Decision Making Medical Decision Making MDM Narrative: Patient is a 64-year-old male presenting to the emergency department with complaint of right flank radiating to right lower quadrant pain for the past 4 days. On exam patient is awake, A+Ox3, VS WNL, afebrile, normal neurological exam without focal deficits, physical exam findings as above. Given reported symptoms and physical exam findings, initial differential includes but is not limited to renal colic, ureteral calculi, hydronephrosis, appendicitis, constipation, diverticulitis. Labs notable for no leukocytosis, mildly elevated BUN and creatinine. Urinalysis notable for 3+ leukocytes, 3+ blood, greater than 50 wbc's, greater than 20 epithelials, no bacteria. Do not suspect UTI/pyelonephritis at this time. CT notable for 4mm calculi at R UVJ with moderate hydronephrosis. My interpretation is in agreement with the radiologist's interpretation. Results discussed with patient and all questions answered. Will discharge home with prednisone, patient already on tamsulosin, ondansetron for nausea and morphine for severe pain. Patient currently prescribed Vicodin for a rotator cuff tear, but states he has been using only Tylenol. Discussed with patient that he should not take Vicodin and morphine at the same time. Will refer to urology. Return precautions discussed at bedside. Patient and daughter verbalized understanding of and agreement with plan. Differential Diagnosis Differential Diagnoses: The differential diagnosis associated with the presentation includes As per [facility] Admission/Observation Consideration of admission/observation: Escalation of care including admission/observation considered Patient would have been admitted to the hospital had their work up had any findings where hospital admission was appropriate and their clinical presentation warranted hospital admission. Lab Data [facility] Lab Attestation statement: I reviewed the patient's lab results. As per [facility] 02/12/25 08:04 02/12/25 08:04 Labs: Lab Results 02/12/25 Range/Units 08:04 WBC 10.8 (4.8-10.8) X10*3/uL RBC 5.01 (4.60-5.80) X10*6/uL Hgb 14.7 (14.0-18.0) g/dl Hct 41.8 L (42.0-52.0) % MCV 83.4 (80.0-98.0) fL MCH 29.3 (27.0-33.0) pg MCHC 35.2 (31.0-36.0) g/dl RDW 14.2 (11.0-16.0) % Plt Count 222 (160-400) X10*3/uL MPV 9.7 (9.4-12.4) fL Immature Gran % (Auto) 0.5 H (0.0-0.4) % Neut % (Auto) 70.5 (45-73) % Lymph % (Auto) 16.3 L (20-40) % O'Brien % (Auto) 10.4 (2-11) % Eos % (Auto) 1.9 (0-4) % Baso % (Auto) 0.4 (0-2) % Lymph # (Auto) 1.8 (1.2-4.9) X10*3/uL O[place]Brien # (Auto) 1.1 (0.1-1.2) X10*3/uL Eos # (Auto) 0.2 (0.0-0.4) X10*3/uL Baso # (Auto) 0.0 (0.0-0.2) X10*3/uL Abs Immat Gran (auto) 0.05 H (0.00-0.03) X10*3/uL Absolute Neuts (auto) 7.6 (2.0-8.3) x10*3/uL Absolute Nucleated RBC 0.000 (0.0-0.012) X10*3/uL Nucleated RBC % (auto) 0.0 (0.0-0.2) /100WBC Sodium 141 (135-145) mmol/L Potassium 3.5 (3.3-5.1) mmol/L Chloride 107 (96-108) mmol/L Carbon Dioxide 24 (22-29) mmol/L Anion Gap 14 (12-20) BUN 21 H (9-16) mg/dL Creatinine 1.47 H (0.5-1.4) mg/dL Estim Creat Clear Calc 70.6 Estimated GFR 48 Random Glucose 116 H (60-115) mg/dL Calcium 9.1 (8.4-10.2) mg/dL Magnesium 2.2 (1.6-2.6) mg/dL Lipase 24 (8-78) U/L Urine Color Yellow Urine Appearance Cloudy Urine pH 5.0 (5.0-9.0) Ur Specific [place] 1.020 (1.005-1.025) Urine Protein Trace (Neg-Trace) mg/dL Urine Glucose (UA) Negative (Negative) mg/dL Urine Ketones Negative (Negative) mg/dL Urine Blood Large (3+) H (Negative) Urine Nitrite Negative (Negative) Ur Leukocyte Esterase Large (3+) H (Negative) Urine RBC >20 H (0-2) /HPF Urine WBC >50 H (0-5) /HPF Ur Squamous Epith Cells >20 (0-2) /HPF Urine Bacteria None Seen (None Seen) Hyaline Casts 3-5 (0-2) /LPF Independent Historian Clinical information obtained from an independent historian. History obtained from or confirmed by: Other (daughter) External Record Review External record reviewed: Inpatient record, Office record and Outpatient record Prescription Management I considered prescription management with: Pain Medication and Other Discharge Plan Discharge Clinical Impression: Right ureteral stone Patient Disposition: Home, Self-Care Instructions: Renal Colic (ED), How to Strain Your Urine (ED), Hydronephrosis (ED), Ureteral Stones (ED) Additional Instructions: You were evaluated in the emergency department for flank pain. Your CT scan showed evidence of a stone in your right ureter. The stone is 4 mm which may or may not pass on its own. Your are being provided with a urine strainer to use at home, instructions are included in your discharge paperwork. You are being prescribed prednisone to decrease inflammation, continue to take your tamsulosin to allow the stone to pass more easily, ondansetron for nausea, and morphine as needed for severe pain. You can also take 600 mg of ibuprofen every 6 hours as needed for pain. You are being referred to Urology, please call them 1st thing Friday morning for an appointment this week. Return to the emergency department if you develop worsening pain, persistent vomiting, fever 100.4? or greater, inability to urinate, or any other concerning symptoms. Prescriptions: New prednisone 20 mg tablet 20 mg PO DAILY Qty: 7 0RF ondansetron 4 mg tablet,disintegrating 4 mg PO Q8H PRN (Reason: nausea and vomiting) Qty: 10 0RF morphine 15 mg tablet 15 mg PO Q8H PRN (Reason: severe pain (scale score 7-10)) Qty: 9 0RF Rx Instructions: Partial Fill upon patient request. sennosides-docusate sodium 8.6-50 mg capsule 1 tab-cap PO BID PRN (Reason: constipation) Qty: 14 0RF No Action lidocaine [Lidoderm] 5 % adhesive patch,medicated 1 patch topical DAILY MDD remove after 12 hours PRN (Reason: pain) Qty: 30 0RF Rx Instructions: leave on most painful area for up to 12 hrs naproxen 500 mg tablet 500 mg PO BID PRN (Reason: pain) 10 Days Qty: 20 0RF cyclobenzaprine 5 mg tablet 5 mg PO Q8H PRN (Reason: pain (scale score 7-10)) 5 Days Qty: 14 0RF acetaminophen-codeine 300-30 mg tablet 1 tab PO Q6H PRN (Reason: pain (scale score 7-10)) 3 Days Qty: 9 0RF gabapentin 300 mg capsule 300 mg PO BEDTIME amlodipine 10 mg tablet 10 mg PO DAILY atorvastatin 40 mg tablet 40 mg PO DAILY tamsulosin 0.4 mg capsule 0.4 mg PO BEDTIME amoxicillin-pot clavulanate 875-125 mg tablet 1 tab PO BID 10 Days Qty: 20 0RF azithromycin 250 mg tablet See Rx Instructions PO .COMPLEX Qty: 6 0RF Rx Instructions: For 250 mg dose pack: take 500 mg today (day 1), then 250 mg for 4 days (days 2-5) PO prednisone 20 mg tablet 40 mg PO DAILY 5 Days Qty: 10 0RF albuterol sulfate 90 mcg/actuation HFA aerosol inhaler 1 inh inhalation QID PRN (Reason: shortness of breath or wheezing) Qty: 6.7 0RF [place] [facility] [place] [place] [facility] [place] - 3 days (4mm calculi R UVJ with moderate hydronephrosis) Print Language: [place]ian
[2025-02-12] MEDS: 0.9 % Sodium Chloride 1,000 ML 999 ML IV (09:11)
[2025-02-12] MEDS: ondansetron HCL 4 MG/2 ML VIAL IVPUSH (09:11)
[2025-02-12 09:12] VITALS: RESP 18
[2025-02-12] MEDS: Ketorolac Tromethamine 15 MG/ML VIAL IVPUSH (09:12)
[2025-02-12] MEDS: Morphine Sulfate 4 MG/ML CARTRIDGE IVPUSH (09:12)
[2025-02-12 10:51] VITALS: BP 128/78; PULSE 67; RESP 20; TEMP 36.5; O2SAT 93
[2025-02-12 10:56] VITALS: BP 128/78; PULSE 67; RESP 20; TEMP 36.5; O2SAT 93
== END 2025-02-12 10:57 | disposition home or self-care (01) ==
PROVIDERS: Emergency Provider Emergency Medicine; PCP Internal Medicine
DX: N13.2 Hydronephrosis with renal and ureteral calculous obstruction (principal); R10.31 Right lower quadrant pain; Z79.02 Long term (current) use of antithrombotics/antiplatelets; Z79.899 Other long term (current) drug therapy
CPT/HCPCS: 36415; 74018; 74176; 80048; 81001; 83690; 83735; 85025; 87086; 87088; 87186; 96374; 96375; 99284; 99285; J1885; J2270; J2405

== ENCOUNTER → 2025-02-12 08:10 | Outpatient (BNV) | payer MEDICARE, SELFPAY | PROVIDERS: Emergency Provider Emergency Medicine; PCP Internal Medicine; Visit Provider Specialist | DX: N13.2 Hydronephrosis with renal and ureteral calculous obstruction (principal); K59.00 Constipation, unspecified | CPT/HCPCS: 74176 ==

== ENCOUNTER 2025-03-03 09:48 | Outpatient (REF) | payer MEDICARE, SELFPAY ==
--- OUTSIDE RECORDS SUMMARY | 2025-03-03 12:23 | XMS_ITS | Encounter Summary ---
Author Organization [facility] Address [address] [place] [address] Care Team Providers Care Pick And Shovel Man Name Role Phone Denver Arora MD Primary Care Provider [phone] Artemio Carney MD Primary Care Provider Encounter Details Date Type Department Care Team Description 01/09/2022 Telephone General Surgery - [address] [place] [address] Christie Morales MD [address] [place] [address] [phone] Social History Tobacco Use Types Packs/Day Years Used Date Smoking Tobacco: Former Cigarettes 0.5 40 Q uit: 11/24/2016 Smokeless Tobacco: Never Alcohol Use Standard Drinks/Week Comments Yes 0 (1 standard drink = 0.6 oz pur e alcohol) Alcohol Habits Answer Date Recorded How often do you have a drink containing alcohol ? Not asked How many drinks containing a lcohol do you have on a typical day when you are drinking? 1 or 2 02/19/2021 How often do you have six or more drinks on one occasion? Monthly 02/19/2021 Sex Assigned at Date Recorded Not on file Job Start Date Occupation Industry Not on file Not on file Not on file COVID-19 Exposure Response Date Recorded In the last month, have you been in contact with someone who was confirmed or suspected to have Coronavirus / COVID-19? No / Unsure 01/09/2022 3:46 PM EST documented as of this encounter Miscellaneous Notes * Telephone Encounter - Niki Traore M.A. - 02/01/2022 12:29 PM EST LVM for pt to call office. U/S was not performed. Orders resent to u/s to book * Telephone Encounter - Christie Morales MD - 01/31/2022 4:18 PM EST U/S was to be performed at the same time. I'm not seeing the report. Please f/u. * Telephone Encounter - Niki Traore M.A. - 01/22/2022 8:51 AM EST Mammo scheduled for 01/22 at 2:25pm * Telephone Encounter - Christie Morales MD - 01/09/2022 7:08 PM EST Right diagnostic mammo and ultrasound ordered for [facility]. Please assist with scheduling. Thank you. documented in this encounter Plan of Treatment Not on file documented as of this encounter Visit Diagnoses Not on filedocumented in this encounter Care Teams Pick And Shovel Man Relationship Specialty Start Date End Date Denver Arora MD [address] [place] [address] PCP - General Internal Medicine 04/21/20 07/31/22 Artemio Carney MD [address] [place] [address] PCP - General Internal Medicine 08/01/22 documented as of this encounter
--- OUTSIDE RECORDS SUMMARY | 2025-03-03 12:23 | XMS_ITS | Encounter Summary ---
Author Organization [facility] Address [address] [place] [address] Care Team Providers Care Seasoner Name Role Phone Denver Arora MD Primary Care Provider [phone] Artemio Carney MD Primary Care Provider Encounter Details Date Type Department Care Team Description 01/22/2022 Orders Only General Surgery [address] [place] [address] Christie Morales MD [address] [place] [address] Breast mass in male Social History Tobacco Use Types Packs/Day Years [...] PM EST documented as of this encounter Plan of Treatment Not on file documented as of this encounter Procedures Procedure Name Priority Date/Time Associated Diagnosis Comments DIAGNOSTIC MAMMOGRAPHY WITH CAD UNILATERAL Routine 01/22/2022 Breast mass in male documented in this encounter Results * DIAGNOSTIC MAMMOGRAPHY WITH CAD UNILATERAL (01/22/2022) Christie Morales MD MAMMOGRAPHY documented in this encounter Visit Diagnoses Diagnosis Breast mass in male Lump or mass in breast documented in this encounter Care Teams Seasoner Relationship Specialty Start Date End Date Denver Arora MD [address] [place] [address] PCP - General Internal Medicine 04/21/20 07/31/22 Artemio Carney MD [address] [place] [address] PCP - General Internal Medicine 08/01/22 documented as of this encounter
--- OUTSIDE RECORDS SUMMARY | 2025-03-03 12:23 | XMS_ITS | Encounter Summary ---
Author Organization [facility] Address [address] [place] [address] Care Team Providers Care Light Coil Winder Name Role Phone Chino Chicas MD Primary Care Provider Unavail able Denver Arora MD Primary Care Provider [phone] Artemio Carney MD Primary Care Provider Encounter Details Date Type Department Care Team Description 05/04/2019 Checkroom Attendant Report Medical Records [address] [place] [address] Benedict Rosenberg Social History Tobacco Use Types Packs/Day Years Used Date Smoking Tobacco: Former Cigarettes 0.5 40 Q uit: 11/24/2016 Smokeless Tobacco: Former Alcohol Use Standard Drinks/Week Comments Not Asked 0 (1 standard drink = 0.6 oz [...] file Not on file Not on file documented as of this encounter Plan of Treatment Not on file documented as of this encounter Visit Diagnoses Not on filedocumented in this encounter Care Teams Light Coil Winder Relationship Specialty Start Date End Date Chino Chicas MD PCP - General Internal Medicine 08/02/15 04/20/20 Denver Arora MD [address] [place] [address] PCP - General Internal Medicine 04/21/20 07/31/22 Artemio Carney MD [address] [place] [address] PCP - General Internal Medicine 08/01/22 documented as of this encounter
--- OUTSIDE RECORDS SUMMARY | 2025-03-03 12:23 | XMS_ITS | Encounter Summary ---
Author Organization [facility] Address [address] [place] [address] Care Team Providers Care Inspector Chief Name Role Phone Denver Arora MD Primary Care Provider [phone] Pcp, No Primary Care Provider Artemio Pino MD Primary Care Provider [phone] Encounter Details Date Type Department Care Team (Late st Contact Info) Description 08/20/2023 Scanned Document [place] [address] Chino Pereira MD [address] [place] [address] Social History Tobacco Use Types Packs/Day Years Used Date Smoking Tobacco: Never Assessed Sex and Gender Information Value Date Recorded Sex Assigned at Not on file Gender Identity Not on file Sexual Orientation Not on file documented as of this encounter Plan of Treatment Not on file documented as of this encounter Visit Diagnoses Not on filedocumented in this encounter Care Teams Inspector Chief Relationship Specialty Start Date End Date Denver Arora MD PCP - General 06/17/23 04/19/24 Pcp, No PCP - General General Medicine 04/20/24 05/10/24 Artemio Carney MD PCP - General Internal Medicine 05/11/24 documented as of this encounter
--- OUTSIDE RECORDS SUMMARY | 2025-03-03 12:23 | XMS_ITS | Encounter Summary ---
Author Organization [facility] Address [address] [place] [address] Care Team Providers Care Multifocal Lens Assembler Name Role Phone Chino Chicas MD Primary Care Provider Unavail able Denver Arora MD Primary Care Provider [phone] Artemio Carney MD Primary Care Provider Encounter Details Date Type Department Care Team Description 07/28/2019 Hospital Medical Records [address] [place] [address] Benedict Rosenberg Social History Tobacco Use Types [...] on filedocumented in this encounter Care Teams Multifocal Lens Assembler Relationship Specialty Start Date End Date Chino Chicas MD PCP - General Internal Medicine 08/02/15 04/20/20 Denver Arora MD [address] [place] [phone] PCP - General Internal Medicine 04/21/20 07/31/22 Artemio Carney MD [address] [place] [address] PCP - General Internal Medicine 08/01/22 documented as of this encounter
--- OUTSIDE RECORDS SUMMARY | 2025-03-03 12:23 | XMS_ITS | Encounter Summary ---
Author Organization [facility] Address [address] [place] [address] Care Team Providers Care Cell Repairer Name Role Phone Artemio Carney MD Primary Care Provider [phone] Encounter Details Date Type Department Care Team (Late st Contact Info) Description 05/24/2024 Scanned Document [facility] [address] [place] [address] Ariela Riddle [address] [facility] [address] [place] [address] Social History Tobacco Use Types Packs/Day Years Used Date Smoking Tobacco: Never Assessed Sex and Gender Information Value Date Recorded Sex Assigned at Not on file Gender Identity Not on file Sexual Orientation Not on file documented as of this encounter Plan of Treatment Not on file documented as of this encounter Visit Diagnoses Not on filedocumented in this encounter Care Teams Cell Repairer Relationship Specialty Start Date End Date Artemio Carney MD PCP - General Internal Medicine 05/11/24 documented as of this encounter
--- OUTSIDE RECORDS SUMMARY | 2025-03-03 12:23 | XMS_ITS | Clinical Summary ---
Author Organization [facility] Address [address] [place] [address] Phone Care Team Providers Care Visual Arts Teacher Name Role Phone Artemio Carney MD Primary [...] hesita ncy 09/14/2020 Overview (11/22/2024): Follows with [facility] urology. Cervical adenopathy 12/24/2019 Thyroid nodule [...] Care Team Description 01/26/2025 Telephone Adult Medicine [address] [address] Artemio Carney MD ER f/u 01/17/2025 2:30 PM EST Office Visit Adult [address] [address] Artemio Carney MD Hyperlipidemia, unspecified hyperlipidemia type (Primary Dx); Hypertension, unspecified type; History of recent fall; Acute pain of left shoulder; Cerebrovascular small vessel disease 01/17/2025 Telephone Adult Medicine [address] [address] Artemio Carney MD Fitting for DME 01/12/2025 Telephone Gastroenterology [facility] [address] [facility] 175 [facility] [address] [place] [address] Juan Baig MD from Last [...] HERNIA REPAIR/UMB OTHER SURGICAL HISTORY 06/06 PROCEDURE: OR OSTECTOMY CALCANEUS SPUR W/WO PLNTAR FASCIAL RLS [...] disea se) stage 3, GFR 30-59 ml/min ([facility]) Adrenal adenoma 12/31/2017 DX:Adrenal adeno ma; COMMENT: [...] Info) Description 05/09/2025 1:30 PM EDT Appointment [facility] Endoscopy [address] [place] [id number] Juan Baig MD 175 [facility] [address] [place] [address] Health Maintenance Due Date Last Done Comments [...] Final Result * Falls Risk Assessment (09/22/2024) [facility] Falls Risk Assessment abstracted [facility] Provider HEALTH MAINTENANCE Final Result * Depression Screening (09/22/2024) Pathologist [facility] Depression Screening abstracted [facility] Provider HEALTH MAINTENANCE Final Result * (ABNORMAL) Lipid panel (09/22/2024) [facility] LDL/HDL Ratio 3 0 - 4 Triglycerides 89 0 - 150 mg/dL Cholesterol 244(A) 0 - 200 mg/dL HDL 72 >=40 mg/dL LDL Cholesterol 155(A) 0 - 100 mg/dL Blood Venous blood specimen / Unknown Result [facility] Provider LAB BLOOD ORDERABLES Mis l Result * Hepatitis C Screening (09/04/2016) [facility] Hepatitis C Screening abstracted [facility] Provider HEALTH MAINTENANCE Final Result * Colonoscopy (08/26/2016) [facility] Colonoscopy no interpretation , abstracted Anatomical Region Laterality Modality Other [facility] Provider HEALTH MAINTENANCE Final Result from Last 3 Months or Most Recently Relevant to Health Maintenance Insurance MEDICARE Care Teams Visual Arts Teacher Relationship Specialty Start Date End Date Artemio Carney MD [address] [place] [address] PCP - General Internal Medicine 01/17/25
--- OUTSIDE RECORDS SUMMARY | 2025-03-03 12:23 | XMS_ITS | Clinical Summary ---
Author Organization [facility] Address [address] [place] [address] Care Team Providers Care Executive Administrative Assistant Name Role Phone Artemio Carney MD Primary Care Provider [phone] Allergies No known active allergies Medications No known medications Active Problems No known active problems Encounters Date Type Department Care Team Description 01/24/2025 2:30 PM EST Consult [facility] [place] [address] Constantino Phipps MD Traumatic complete tear of [...] age to complete this topic Care Teams Executive Administrative Assistant Relationship Specialty Start Date End Date Artemio Carney MD PCP - General Internal Medicine 05/11/24
--- OUTSIDE RECORDS SUMMARY | 2025-03-03 12:23 | XMS_ITS | Encounter Summary ---
Author Organization [facility] Address [address] [place] [address] Care Team Providers Care Coremaker Helper Name Role Phone Chino Samuels Primary Care Provider Chino Abreu MD Primary Care Provider Unavail able Denver Arora MD Primary Care Provider [phone] Artemio Carney MD Primary Care Provider Encounter Details Date Type Department Care Team Description 07/24/2012 Hospital Medical Records [address] [place] [address] Chino Samuels Social History Tobacco Use Types Packs/Day Years [...] on filedocumented in this encounter Care Teams Coremaker Helper Relationship Specialty Start Date End Date Chino Samuels PCP - General Internal Medicine 06/07/14 08/01/15 Chino Chicas MD PCP - General Internal Medicine 08/02/15 04/20/20 Denver Arora MD [address] [place] [address] PCP - General Internal Medicine 04/21/20 07/31/22 Artemio Carney MD [address] [place] [address] PCP - General Internal Medicine 08/01/22 documented as of this encounter
--- OUTSIDE RECORDS SUMMARY | 2025-03-03 12:23 | XMS_ITS | Encounter Summary ---
Author Organization [facility] Address [address] [place] [address] Care Team Providers Care Director Biologics Name Role Phone Chino Chicas MD Primary Care Provider Unavail able Denver Arora MD Primary Care Provider [phone] Artemio Carney MD Primary Care Provider Encounter Details Date Type Department Care Team Description 06/10/2017 Hospital Medical Records [address] [place] [address] Social History Tobacco Use Types Packs/Day Years [...] on filedocumented in this encounter Care Teams Director Biologics Relationship Specialty Start Date End Date Chino Chicas MD PCP - General Internal Medicine 08/02/15 04/20/20 Denver Arora MD [address] [place] [address] PCP - General Internal Medicine 04/21/20 07/31/22 Artemio Carney MD [address] [place] [address] PCP - General Internal Medicine 08/01/22 documented as of this encounter
--- OUTSIDE RECORDS SUMMARY | 2025-03-03 12:23 | XMS_ITS | Encounter Summary ---
Author Organization [facility] Address [address] [place] [address] Care Team Providers Care School Director Name Role Phone Denver Arora MD Primary Care Provider [phone] Artemio Carney MD Primary Care Provider Encounter Details Date Type Department Care Team Description 04/17/2021 Hospital Medical Records [address] [place] [address] Daniel Garcia DO Social History Tobacco Use Types Packs/Day Years [...] on filedocumented in this encounter Care Teams School Director Relationship Specialty Start Date End Date Denver Arora MD [address] [place] [address] PCP - General Internal Medicine 04/21/20 07/31/22 Artemio Carney MD [address] [place] [address] PCP - General Internal Medicine 08/01/22 documented as of this encounter
--- OUTSIDE RECORDS SUMMARY | 2025-03-03 12:23 | XMS_ITS | Encounter Summary ---
Author Organization [facility] Address [address] [place] [address] Care Team Providers Care Railcar Foreman Name Role Phone Pcp, Sangita Primary Care Provider Artemio Pino MD Primary Care Provider [phone] Encounter Details Date Type Department Care Team (Late st Contact Info) Description 04/27/2024 Scanned Document [facility] [address] Chino Pereira MD [address] [place] [address] Social History Tobacco Use Types Packs/Day Years Used Date Smoking Tobacco: Never Assessed Sex and Gender Information Value Date Recorded Sex Assigned at Not on file Gender Identity Not on file Sexual Orientation Not on file documented as of this encounter Plan of Treatment Not on file documented as of this encounter Visit Diagnoses Not on filedocumented in this encounter Care Teams Railcar Foreman Relationship Specialty Start Date End Date Pcp, No PCP - General General Medicine 04/20/24 05/10/24 Artemio Carnye MD PCP - General Internal Medicine 05/11/24 documented as of this encounter
--- OUTSIDE RECORDS SUMMARY | 2025-03-03 12:23 | XMS_ITS | Encounter Summary ---
Author Organization [facility] Address [address] [place] [address] Care Team Providers Care Die Sizer Name Role Phone Denver Arora MD Primary Care Provider [phone] Artemio Carney MD Primary Care Provider Encounter Details Date Type Department Care Team Description 10/12/2021 Refill Adult Medicine [facility] [address] [place], [place] [phone] Denver Arora MD [address] [place] [phone] Social History Tobacco Use Types Packs/Day Years [...] have Coronavirus / COVID-19? No / Unsure 10/12/2021 4:01 PM EST documented as of this encounter Plan of Treatment Not on file documented as of this encounter Visit Diagnoses Not on filedocumented in this encounter Care Teams Die Sizer Relationship Specialty Start Date End Date Denver Arora MD [address] [place] [address] PCP - General Internal Medicine 04/21/20 07/31/22 Artemio Carney MD [address] [place] [address] PCP - General Internal Medicine 08/01/22 documented as of this encounter
--- OUTSIDE RECORDS SUMMARY | 2025-03-03 12:23 | XMS_ITS | Clinical Summary ---
Author Organization [facility] Address [address] [place] [address] Care Team Providers Care Stitcher Standard Machine Name Role Phone Artemio Carney MD Primary Care Provider Allergies No known active allergies Medications Medication Sig Dispensed Refills Start Date End Date Status gabapentin (NEURONTIN) 300 MG capsuleIndications: Injury of right Achilles tendon, sequela TAKE 3 CAPSULES BY MOUTH EVERY DAY 270 Capsule 2 05/05/2024 Active amlodipine (NORVASC) 5 MG tablet Take 1 Tablet by mouth daily. 90 Tablet 1 05/05/2024 Active hydrochlorothiazide (MICROZIDE) 12.5 MG capsule Take 1 Capsule by mouth every morning. 90 Capsule 1 05/05/2024 Active ibuprofen (ADVIL,MOTRIN) 800 MG tabletIndications:I njury of right Achilles tendon, sequela Take 1 Tablet by mouth every 8 hours as needed for Pain. 270 Tablet 1 05/05/2024 Active atorvastatin (LIPITOR) 40 MG tablet Take 1 Tablet by mouth daily. 90 Tablet 1 09/23/2024 Active Active Problems Problem Noted Date Effusion of right knee 05/26/2023 Injury of right Achilles tendon 05/22/20 23 History of Achilles tendon repair 2022 History of dysplastic nevus 01/22/2021 Overview: Dysplastic nevus 10/09 back (moderate atypia) Benign prostatic hyperplasia with urinar y hesitancy 09/14/2020 Overview: Follows with [facility] urology. Cervical adenopathy 12/24/2019 Thyroid nodule 03/09/2019 Adrenal adenoma 12/31/2017 Overview: Bilateral adrenal adenomas on CT scan of 12/29/2017. 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 Two polyps in the distal rectum. Dr. Varner. Resolved Problems Problem Noted Date Resolved Date CKD (chronic kidney disease) stage 3, GFR 30-59 ml/min 03/25/2019 05/22/2023 Last Assessment & Plan: Improved cr and gfr now. S/P left inguinal hernia repair 10/29/2018 03/25/2019 Tobacco use disorder 10/13/2015 11/07/2019 Overview: Quit 2017 Immunizations Name Administration Dates Next Due COVID-19 (Moderna) PT Reported 10/12/2021,2020,11/22/2020 Covid-19 Bivalent (Moderna) 12/09/2022 Influenza (> 6 Months) 09/22/2024 Influenza Flu (PT Reported) 10/11/2022, 1,08/24/2018 Influenza Vaccine-preservati ve Free-quadrivalent 4 Years 09/15/2023 Influenza Vaccine-quadrivalent 4 Years Plus 08/24 PREVNAR 20 09/22/2024 Pneumoccoccal(Adult) Polysaccharide PPSV23 07/08 Tdap 06/25/2016 Family History Medical History Relation Name Comments Other Father Alzheimer's dis ease Other Mother No active medic al problems Relation Name Status Comments Father Alive Mother Alive Social History Tobacco Use Types Packs/Day Years Used Date Smoking Tobacco: Former Cigarettes 0.5 40 Q uit: 11/24/2016 Smokeless Tobacco: Never Tobacco [...] file Not on file Not on file Last Filed Vital Signs Vital Sign Reading Time Taken Comments Blood Pressure 120/70 09/22/2024 1:18 PM EDT Pulse 95 09/22/2024 1:18 PM EDT Temperature 36.1 ??C (97 ??F) 09/22/2024 1:18 PM EDT Respiratory Rate 16 09/22/2024 1:18 PM EDT Oxygen Saturation 98% 05/22/2023 11: 52 AM EDT Inhaled Oxygen Concentration - - Weight 122.7 kg (270 lb 6.4 oz) 09/22/2024 1:18 PM EDT Height 190.5 cm (6' 3 ) 09/22/2024 1:18 PM EDT Body Mass Index 33.8 09/22/2024 1:18 PM EDT Plan of Treatment Health Maintenance Due Date Last Done Comments SHINGLES VACCINE (1 of 2) 2009 COLON CANCER SCREENING 08/26/2021 6, 08/26/2016, 05/24/2010 (External Completion) Covid-19 Vaccine (5 - 2022-2 4 season) 2024 12/09/2022, 10/12/2021, 12/20/2020, Additional history exists BMI CHECK/ADVISE 11/24/2024 09/22/2024 (Com pleted), 10/12/2021, 02/19/2021, Additional history exists DEPRESSION SCREEN 09/22/2025 09/22/2024 FALL RISK ASSESSMENT 09/22/2025 09/22/2024 DTAP/TDAP/TD (2 - Td or Tdap) 06/25/2026 06/25/2016 CHOLESTEROL SCREENING 09/22/2029 09/22/2024 , 05/22/2023, 08/27/2022, Additional history exists HEPATITIS C SCREENING Completed 09/04/2016 , 09/24/2013 (External Completion) INFLUENZA Completed 09/22/2024, 08/25, 10/11/2022, Additional history exists PNEUMOCOCCAL VACCINE Completed 09/22/2024, 07/08/20 12 Care Teams Stitcher Standard Machine Relationship Specialty Start Date End Date Artemio Carney MD [address] [place] [id number] PCP - General Internal Medicine 08/01/22
--- OUTSIDE RECORDS SUMMARY | 2025-03-03 12:23 | XMS_ITS | Encounter Summary ---
Author Organization [facility] Address [address] [place] [address] Care Team Providers Care Clinical Analyst Name Role Phone Chino Chicas MD Primary Care Provider Unavail able [place] Arora MD Primary Care Provider [phone] Artemio Carney MD Primary Care Provider Encounter Details Date Type Department Care Team Description 07/03/2016 FAIRING WORKER/[facility] Report Medical Records [address] [place] [id number] Abstract, Provider Social History Tobacco Use Types Packs/Day Years Used Date Smoking Tobacco: Every Day Cigarettes 0.5 Alcohol Use Standard Drinks/Week Comments Not Asked [...] on filedocumented in this encounter Care Teams Clinical Analyst Relationship Specialty Start Date End Date Chino Chicas MD PCP - General Internal Medicine 08/02/15 04/20/20 [place] Arora MD [address] [place] [address] PCP - General Internal Medicine 04/21/20 07/31/22 Artemio Carney MD [address] [place] [address] PCP - General Internal Medicine 08/01/22 documented as of this encounter
--- OUTSIDE RECORDS SUMMARY | 2025-03-03 12:23 | XMS_ITS | Encounter Summary ---
Author Organization [facility] Address [address] [place] [address] Care Team Providers Care Aviation Ordnance Officer Name Role Phone [place] Arora MD Primary Care Provider [phone] Pcp, No Primary Care Provider Artemio Pino MD Primary Care Provider [phone] Encounter Details Date Type Department Care Team (Late st Contact Info) Description 06/02/2023 Scanned Document [place] [address] Chino Pereira MD [address] [place] [address] Social History Tobacco Use Types Packs/Day Years Used Date Smoking Tobacco: Never Assessed Sex and Gender Information Value Date Recorded Sex Assigned at Not on file Gender Identity Not on file Sexual Orientation Not on file documented as of this encounter Plan of Treatment Not on file documented as of this encounter Visit Diagnoses Not on filedocumented in this encounter Care Teams Aviation Ordnance Officer Relationship Specialty Start Date End Date [place] Arora MD PCP - General 06/17/23 04/19/24 Pcp, No PCP - General General Medicine 04/20/24 05/10/24 Artemio Carney MD PCP - General Internal Medicine 05/11/24 documented as of this encounter
--- OUTSIDE RECORDS SUMMARY | 2025-03-03 12:23 | XMS_ITS | Encounter Summary ---
Author Organization [facility] Address [address] [place] [address] Care Team Providers Care Assistant Plant Control Operator Name Role Phone Pcp, Sangita Primary Care Provider Artemio Pino MD Primary Care Provider [phone] Encounter Details Date Type Department Care Team (Late st Contact Info) Description 04/27/2024 Scanned Document [facility] [address] Chino Pereira MD [address] [place] [address] Social History Tobacco Use Types Packs/Day Years Used Date Smoking Tobacco: Never Assessed Sex and Gender Information Value Date Recorded Sex Assigned at Not on file Gender Identity Not on file Sexual Orientation Not on file documented as of this encounter Plan of Treatment Not on file documented as of this encounter Visit Diagnoses Not on filedocumented in this encounter Care Teams Assistant Plant Control Operator Relationship Specialty Start Date End Date Pcp, No PCP - General General Medicine 04/20/24 05/10/24 Artemio Carney MD PCP - General Internal Medicine 05/11/24 documented as of this encounter
--- OUTSIDE RECORDS SUMMARY | 2025-03-03 12:23 | XMS_ITS | Encounter Summary ---
Author Organization [facility] Address [address] [place] [address] Care Team Providers Care Photogrammetric Tech Name Role Phone Chino Chicas MD Primary Care Provider Unavail able [place] Arora MD Primary Care Provider [phone] Artemio Carney MD Primary Care Provider Encounter Details Date Type Department Care Team Description 08/25/2017 Mixer Crane Operator Report Medical Records [address] [place] [address] Anupama Rock MD Social History Tobacco Use Types Packs/Day Years Used Date Smoking Tobacco: Former Cigarettes 0.5 Q uit: 11/24/2016 Alcohol Use Standard Drinks/Week Comments Not Asked [...] on filedocumented in this encounter Care Teams Photogrammetric Tech Relationship Specialty Start Date End Date Chino Chicas MD PCP - General Internal Medicine 08/02/15 04/20/20 [place] Arora MD [address] [place] [address] PCP - General Internal Medicine 04/21/20 07/31/22 Artemio Carney MD [address] [place] [id number] PCP - General Internal Medicine 08/01/22 documented as of this encounter
--- OUTSIDE RECORDS SUMMARY | 2025-03-03 12:23 | XMS_ITS | Encounter Summary ---
Author Organization [facility] Address [address] [place] [address] Care Team Providers Care Inside Sales Specialist Name Role Phone Artemio Carney MD Primary Care Provider [phone] Encounter Details Date Type Department Care Team ([facility] st Contact Info) Description 05/18/2024 Scanned Document [facility] [address] Chino Pereira MD [address] [place] [address] Social History Tobacco Use Types Packs/Day Years Used Date Smoking Tobacco: Never Assessed Sex and Gender Information Value Date Recorded Sex Assigned at Not on file Gender Identity Not on file Sexual Orientation Not on file documented as of this encounter Plan of Treatment Not on file documented as of this encounter Visit Diagnoses Not on filedocumented in this encounter Care Teams Inside Sales Specialist Relationship Specialty Start Date End Date Artemio Carney MD PCP - General Internal Medicine 05/11/24 documented as of this encounter
--- OUTSIDE RECORDS SUMMARY | 2025-03-03 12:23 | XMS_ITS | Encounter Summary ---
Author Organization [facility] Address [address] [place] [address] Care Team Providers Care Mixer Blender Name Role Phone [place] Arora MD Primary Care Provider [phone] Artemio Carney MD Primary Care Provider Encounter Details Date Type Department Care Team Description 02/11/2022 Orders Only General Surgery [address] [place] [address] Christie Morales MD [address] [place] [address] Breast mass in male Social History Tobacco [...] Procedure Name Priority Date/Time Associated Diagnosis Comments SONO BREAST, LIMITED Routine 02/08/2022 Breast mass in male documented in this encounter Results * SONO BREAST, LIMITED (02/08/2022) Christie Morales MD MAMMOGRAPHY documented in this encounter Visit Diagnoses Diagnosis Breast mass in male Lump or mass in breast documented in this encounter Care Teams Mixer Blender Relationship Specialty Start Date End Date [place] Arora MD [address] [place] [id number] PCP - General Internal Medicine 04/21/20 07/31/22 Artemio Carney MD [address] [place] [address] PCP - General Internal Medicine 08/01/22 documented as of this encounter
--- OUTSIDE RECORDS SUMMARY | 2025-03-03 12:23 | XMS_ITS | Encounter Summary ---
Author Organization [facility] Address [address] [place] [address] Care Team Providers Care Prison Keeper Name Role Phone [place] Arora MD Primary Care Provider [phone] Artemio Carney MD Primary Care Provider Encounter Details Date Type Department Care Team Description 06/27/2021 Telephone Adult Medicine [facility] [address], [place] [id number] [place] Arora MD [address], [place] [phone] Social History Tobacco Use Types Packs/Day Years [...] have Coronavirus / COVID-19? No / Unsure 06/26/2021 12:49 PM EDT documented as of this encounter Miscellaneous Notes * Telephone Encounter - Divya Asher - 06/27/2021 11:[address] Arora has nothing available for a schedule for PE in 4 to 6 months , please call patient when schedule opens up * Telephone Encounter - [place] Arora MD - 06/27/2021 9:49 AM EDT Please schedule pt with me for physical in 4 month or my next open physical slot if 4 months not available documented in this encounter Plan of Treatment Not on file documented as of this encounter Visit Diagnoses Not on filedocumented in this encounter Care Teams Prison Keeper Relationship Specialty Start Date End Date [place] Arora MD [address] [place] [address] PCP - General Internal Medicine 04/21/20 07/31/22 Artemio Carney MD [address] [place] [address] PCP - General Internal Medicine 08/01/22 documented as of this encounter
--- OUTSIDE RECORDS SUMMARY | 2025-03-03 12:23 | XMS_ITS | Encounter Summary ---
Author Organization [facility] Address [address] [place] [address] Care Team Providers Care Events And Promotions Assistant Name Role Phone Pcp, Sangita Primary Care Provider Artemio Pino MD Primary Care Provider [phone] Encounter Details Date Type Department Care Team (Late st Contact Info) Description 04/22/2024 Scanned Document [facility] [place] [address] Chino Pereira MD [address] [place] [address] Social History Tobacco Use Types Packs/Day Years Used Date Smoking Tobacco: Never Assessed Sex and Gender Information Value Date Recorded Sex Assigned at Not on file Gender Identity Not on file Sexual Orientation Not on file documented as of this encounter Plan of Treatment Not on file documented as of this encounter Visit Diagnoses Not on filedocumented in this encounter Care Teams Events And Promotions Assistant Relationship Specialty Start Date End Date Pcp, No PCP - General General Medicine 04/20/24 05/10/24 Artemio Carney MD PCP - General Internal Medicine 05/11/24 documented as of this encounter
--- OUTSIDE RECORDS SUMMARY | 2025-03-03 12:23 | XMS_ITS | Encounter Summary ---
Author Organization [facility] Address [address] [place] [address] Care Team Providers Care Etymology Teacher Name Role Phone Chino Chicas MD Primary Care Provider Unavail [place] MD Primary Care Provider [phone] Artemio Carney MD Primary Care Provider Reason for Visit * Reason Onset Date Comments er follow up 06/10/2017 Encounter Details Date Type Department Care Team Description 06/10/2017 Telephone Adult Medicine [address] [address] Chino Chicas MD er follow up Social History Tobacco Use Types Packs/Day Years [...] on file documented as of this encounter Miscellaneous Notes * Telephone Encounter - Amira Quintana - 06/10/2017 8:28 AM EDT ER follow-up appointment booked YES 06/11/17 If ER follow up, can be booked with mid-level or MD. If hospital admission follow up MUST be booked with a physician Appointment time: 10:30 AM Provider visit is scheduled with: Ese Pemberton PA-C Hospital patient was treated at: [facility] Date of visit: 06/09/17 Was this only an ER visit or was the patient admitted to the hospital? ER visit onlyER visit only If patient was admitted what was the date of discharge? N/A Reason/diagnosis for visit or stay: kidney stones Was visit or stay related to an injury? NO If yes, what was the date of injury (DOI)? N/A If yes, was the injury due to N/A Tests performed: Lab: YES X-ray: YES EKG: YES Other tests. If yes, what?; CT Scan documented in this encounter Plan of Treatment Not on file documented as of this encounter Visit Diagnoses Not on filedocumented in this encounter Care Teams Etymology Teacher Relationship Specialty Start Date End Date Chino Chicas MD PCP - General Internal Medicine 08/02/15 04/20/20 [place] Arora MD [address] [place] [id number] PCP - General Internal Medicine 04/21/20 07/31/22 Artemio Carney MD [address] [place] [address] PCP - General Internal Medicine 08/01/22 documented as of this encounter
--- OUTSIDE RECORDS SUMMARY | 2025-03-03 12:23 | XMS_ITS | Encounter Summary ---
Author Organization [facility] Address [address] [place] [address] Care Team Providers Care Retail Merchandising Manager Name Role Phone Artemio Carney MD Primary Care Provider [phone] Encounter Details Date Type Department Care Team (Late st Contact Info) Description 05/12/2024 Scanned Document [facility] [address] [place] [address] Ariela Riddle [address] [facility] [address] [place] [address] Social History Tobacco Use Types Packs/Day Years Used Date Smoking Tobacco: Never Assessed Sex and Gender Information Value Date Recorded Sex Assigned at Not on file Gender Identity Not on file Sexual Orientation Not on file documented as of this encounter Plan of Treatment Not on file documented as of this encounter Visit Diagnoses Not on filedocumented in this encounter Care Teams Retail Merchandising Manager Relationship Specialty Start Date End Date Artemio Careny MD PCP - General Internal Medicine 05/11/24 documented as of this encounter
--- OUTSIDE RECORDS SUMMARY | 2025-03-03 12:23 | XMS_ITS | Encounter Summary ---
Author Organization [facility] Address [address] [place] [address] Care Team Providers Care Information Systems Director Name Role Phone Chino Chicas MD Primary Care Provider Unavail [facility] [place] Arora MD Primary Care Provider [phone] Artemio Carney MD Primary Care Provider Encounter Details Date Type Department Care Team Description 07/23/2016 Hospital Medical Records [address] [place] [id number] Sameera Shelby MD Social History Tobacco Use Types Packs/Day [...] on filedocumented in this encounter Care Teams Information Systems Director Relationship Specialty Start Date End Date Chino Chicas MD PCP - General Internal Medicine 08/02/15 04/20/20 [place] Arora MD [address] [place] [address] PCP - General Internal Medicine 04/21/20 07/31/22 Artemio Carney MD [address] [place] [address] PCP - General Internal Medicine 08/01/22 documented as of this encounter
--- OUTSIDE RECORDS SUMMARY | 2025-03-03 12:23 | XMS_ITS | Encounter Summary ---
Author Organization [facility] Address [address] [place] [address] Care Team Providers Care Video Editing Internship Name Role Phone Chino Chicas MD Primary Care Provider Unavail [place] MD Primary Care Provider [phone] Artemio Carney MD Primary Care Provider Reason for Referral * Radiology Services (Routine) - Closed Specialty Diagnoses / Procedures Referred By Candy mccauley Referred To Contact Radiology Diagnoses Adrenal adenoma, unspecified laterality Procedures CAT SCAN OF ABDOMEN NO CONTRAST [place] [address] [address] Referral ID Status Reason Start Date Expiration Date Visits Re quested Visits Authorized [id number] Closed 10/27/2019 11/25/2019 1 1 Encounter Details Date Type Department Care Team Description 11/08/2018 Orders [place] [address] Chino Chicas MD Adrenal adenoma, unspecified laterality (Primary Dx) Social History Tobacco Use Types Packs/Day Years Used Date Smoking Tobacco: Former Cigarettes 0.5 Q uit: 11/24/2016 Smokeless Tobacco: Former Alcohol [...] on file documented as of this encounter Results * CAT SCAN OF ABDOMEN NO CONTRAST (11/05/2019 8:56 AM EST) 11/05/2019 1:06 PM EST Impressions [facility] OTHER EXTERNAL - 11/05/2019 1:34 PM EST IMPRESSION: Stable bilateral nonobstructing renal calculi. Stable benign left adrenal adenoma. Other findings as described. . Narrative [facility] OTHER EXTERNAL - 11/05/2019 1:34 PM EST CAT SCAN OF ABDOMEN NO CONTRAST HISTORY: ??Adrenal adenoma. PROCEDURE: Multiple axial images are obtained through the abdomen from the lung bases to the iliac crests. Oral contrast was administered. PRIOR STUDIES: CT abdomen/pelvis 12/29/2017 and 12/29/2017. Radiation dose: ctdi 17.68 mCi. FINDINGS: Benign left adrenal adenoma is stable. ??Right adrenal gland is unremarkable. Bilateral renal calculi are stable. 1.8 cm parapelvic cyst of the left kidney is again noted. There are rounded subcentimeter low-density lesions of the liver. ??The largest of these lesions measures fluid densities. ??The others are too small to accurately obtain density measurements. The pancreas and and spleen are grossly unremarkable. The gallbladder is surgically absent. The visualized GI tract is normal. The aorta is normal in caliber. ??There is atherosclerosis. Lung bases are clear. Procedure Note Jennifer Miguel MD - 11/05/2019 CAT SCAN OF ABDOMEN NO CONTRAST HISTORY: Adrenal adenoma. PROCEDURE: Multiple axial images are obtained through the abdomen from thelung bases to the iliac crests. Oral contrast was administered. PRIOR STUDIES: CT abdomen/pelvis 12/29/2017 and 12/29/2017. Radiation dose: ctdi 17.68 mCi. FINDINGS: Benign left adrenal adenoma is stable. Right adrenal gland isunremarkable. Bilateral renal calculi are stable. 1.8 cm parapelvic cyst of the left kidney is again noted. There are rounded subcentimeter low-density lesions of the liver. Thelargest of these lesions measures fluid densities. The others are too small to accurately obtaindensity measurements. The pancreas and and spleen are grossly unremarkable. The gallbladder is surgically absent. The visualized GI tract is normal. The aorta is normal in caliber. There is atherosclerosis. Lung bases are clear. IMPRESSION IMPRESSION: Stable bilateral nonobstructing renal calculi. Stable benign left adrenal adenoma. Other findings as described. . Chino Chicas MD CT SCANS CHARAN[facility] BLUM OTHER EXTERNAL documented in this encounter Visit Diagnoses Diagnosis Adrenal adenoma, unspecified laterality- Primary Adrenal adenoma, unspecified laterality documented in this encounter Care Teams Video Editing Internship Relationship Specialty Start Date End Date Chino Chicas MD PCP - General Internal Medicine 08/02/15 04/20/20 [place] Arora MD [address] [place] [id number] PCP - General Internal Medicine 04/21/20 07/31/22 Artemio Carney MD [address] [place] [phone] PCP - General Internal Medicine 08/01/22 documented as of this encounter
--- OUTSIDE RECORDS SUMMARY | 2025-03-03 12:23 | XMS_ITS | Encounter Summary ---
Author Organization [facility] Address [address] [place] [address] Care Team Providers Care Talent Acquisition Relationship Manager Name Role Phone [place] Arora MD Primary Care Provider [phone] Pcp, No Primary Care Provider Artemio Pino MD Primary Care Provider [phone] Encounter Details Date Type Department Care Team (Late st Contact Info) Description 08/20/2023 Scanned Document [place] [address] Chino Pereira MD [address] [place] [address] Social History Tobacco Use Types Packs/Day Years Used Date Smoking Tobacco: Never Assessed Sex and Gender Information Value Date Recorded Sex Assigned at Not on file Gender Identity Not on file Sexual Orientation Not on file documented as of this encounter Plan of Treatment Not on file documented as of this encounter Visit Diagnoses Not on filedocumented in this encounter Care Teams Talent Acquisition Relationship Manager Relationship Specialty Start Date End Date [place] Arora MD PCP - General 06/17/23 04/19/24 Pcp, No PCP - General General Medicine 04/20/24 05/10/24 Artemio Carney MD PCP - General Internal Medicine 05/11/24 documented as of this encounter
--- OUTSIDE RECORDS SUMMARY | 2025-03-03 12:23 | XMS_ITS | Encounter Summary ---
Author Organization [facility] Address [address] [place] [address] Care Team Providers Care Certified Substance Abuse Counselor Name Role Phone Denver Arora MD Primary Care Provider [phone] Artemio Carney MD Primary Care Provider Encounter Details Date Type Department Care Team Description 04/16/2022 Vamp Marker Report Medical Records [address] [place] [address] Social History Tobacco Use Types Packs/Day Years [...] on filedocumented in this encounter Care Teams Certified Substance Abuse Counselor Relationship Specialty Start Date End Date Denver Arora MD [address] [place] [address] PCP - General Internal Medicine 04/21/20 07/31/22 Artemio Carney MD [address] [place] [address] PCP - General Internal Medicine 08/01/22 documented as of this encounter
--- OUTSIDE RECORDS SUMMARY | 2025-03-03 12:23 | XMS_ITS | Encounter Summary ---
Author Organization [facility] Address [address] [place] [address] Care Team Providers Care Grocery Store Bagger Name Role Phone Artemio Carney MD Primary Care Provider Encounter Details Date Type Department Care Team Description 04/02/2023 Business Planning Analyst Report Medical Records [address] [place] [address] Ash Cazares MD Social History Tobacco Use Types Packs/Day [...] on filedocumented in this encounter Care Teams Grocery Store Bagger Relationship Specialty Start Date End Date Artemio Carney MD [address] [place] [address] PCP - General Internal Medicine 08/01/22 documented as of this encounter
--- OUTSIDE RECORDS SUMMARY | 2025-03-03 12:23 | XMS_ITS | Encounter Summary ---
Author Organization [facility] Address [address] [place] [address] Care Team Providers Care Installer Interior Assemblies Name Role Phone Chino Chicas MD Primary Care Provider Unavail Denver Lyon MD Primary Care Provider [phone] Artemio Carney MD Primary Care Provider Reason for Visit * Reason Comments E-prescribe Rx Request Encounter Details Date Type Department Care Team Description 02/22/2020 Refill Adult Medicine [address] [address] Chino Chicas MD E-prescribe Rx Request Social History Tobacco Use Types Packs/Day Years [...] encounter Miscellaneous Notes * Telephone Encounter - Krystina Spivey - 02/23/2020 8:23 AM EDT Patient would like script to be: E-PRESCRIBED/FAXED TO PHARMACY WHEN WAS THE PATIENT'S LAST APPOINTMENT IN ADULT MEDICINE? 12/24/19 WHEN WAS THE LAST TIME THE PATIENT SAW THEIR PCP? Same as above Does patient have an upcoming appointment? [facility]. Appt due (THE MEDICATION REQUESTED IS ON THE MED LIST ABOVE) All of the medications requested were on the CURRENT MEDS list Did you check the Pharmacy information above?: YES Patient wants: 30 -day supply Is this a mail order prescription request ? NO If the refill is from a FAXED refill request what is the RX # listed on the fax? N/A Patients current insurance carrier is: Payor: [employer] / Plan: POS $[id number] [place] [id number] [facility] TRADITNAL / Product Type: POS [id number] documented in this encounter Plan of Treatment Not on file documented as of this encounter Visit Diagnoses Not on filedocumented in this encounter Care Teams Installer Interior Assemblies Relationship Specialty Start Date End Date Chino Chicas MD PCP - General Internal Medicine 08/02/15 04/20/20 Denver Arora MD [address] [place] [address] PCP - General Internal Medicine 04/21/20 07/31/22 Artemio Carney MD [address] [place] [address] PCP - General Internal Medicine 08/01/22 documented as of this encounter
--- OUTSIDE RECORDS SUMMARY | 2025-03-03 12:23 | XMS_ITS | Encounter Summary ---
Author Organization [facility] Address [address] [place] [address] Care Team Providers Care Marriage Counselor Name Role Phone Chino Chicas MD Primary Care Provider Unavail able Denver Arora MD Primary Care Provider [phone] Artemio Carney MD Primary Care Provider Encounter Details Date Type Department Care Team Description 11/28/2016 Metal Bed Assembler Report Medical Records [address] [place] [address] Ash Garcia MD Social History Tobacco Use Types Packs/Day [...] on filedocumented in this encounter Care Teams Marriage Counselor Relationship Specialty Start Date End Date Chino Chicas MD PCP - General Internal Medicine 08/02/15 04/20/20 Denver Arora MD [address] [place] [address] [id number] PCP - General Internal Medicine 04/21/20 07/31/22 Artemio Carney MD [address] [place] [address] PCP - General Internal Medicine 08/01/22 documented as of this encounter
--- OUTSIDE RECORDS SUMMARY | 2025-03-03 12:23 | XMS_ITS | Encounter Summary ---
Author Organization [facility] Address [address] [place] [address] Care Team Providers Care Boring Machine Operator Horizontal Name Role Phone Denver Arora MD Primary Care Provider [phone] Pcp, No Primary Care Provider Artemio Pino MD Primary Care Provider [phone] Encounter Details Date Type Department Care Team (Late st Contact Info) Description 08/29/2023 Scanned [place] [address] Chino Pereira MD [address] [place] [address] Social History Tobacco Use Types Packs/Day Years Used Date Smoking Tobacco: Never Assessed Sex and Gender Information Value Date Recorded Sex Assigned at Not on file Gender Identity Not on file Sexual Orientation Not on file documented as of this encounter Plan of Treatment Not on file documented as of this encounter Visit Diagnoses Not on filedocumented in this encounter Care Teams Boring Machine Operator Horizontal Relationship Specialty Start Date End Date Denver Arora MD PCP - General 06/17/23 04/19/24 Pcp, No PCP - General General Medicine 04/20/24 05/10/24 Artemio Carney MD PCP - General Internal Medicine 05/11/24 documented as of this encounter
--- OUTSIDE RECORDS SUMMARY | 2025-03-03 12:23 | XMS_ITS | Encounter Summary ---
Author Organization [facility] Address [address] [place] [address] Care Team Providers Care Application Trainer Name Role Phone Pcp, Sangita Primary Care Provider Artemio Pino MD Primary Care Provider [phone] Encounter Details Date Type Department Care Team (Late st Contact Info) Description 05/10/2024 Scanned Document [facility] [place] [address] Chino Pereira MD [address] [place] [address] Social History Tobacco Use Types Packs/Day Years Used Date Smoking Tobacco: Never Assessed Sex and Gender Information Value Date Recorded Sex Assigned at Not on file Gender Identity Not on file Sexual Orientation Not on file documented as of this encounter Plan of Treatment Not on file documented as of this encounter Visit Diagnoses Not on filedocumented in this encounter Care Teams Application Trainer Relationship Specialty Start Date End Date Pcp, No PCP - General General Medicine 04/20/24 05/10/24 Artemio Carney MD PCP - General Internal Medicine 05/11/24 documented as of this encounter
--- OUTSIDE RECORDS SUMMARY | 2025-03-03 12:23 | XMS_ITS | Encounter Summary ---
Author Organization [facility] Address [address] [place] [address] Care Team Providers Care Granite Polisher Name Role Phone Artemio Carney MD Primary Care Provider Reason for Visit * Reason Onset Date Comments Pre-op Needed 12/04/2022 Encounter Details Date Type Department Care Team Description 12/04/2022 Telephone Adult Medicine [facility] [address] [place] [address] Artemio Carney MD [address] [place] [address] Pre-op Needed Social History Tobacco Use Types Packs/Day Years [...] * Telephone Encounter - Divya Asher - 12/04/2022 3:05 PM EST Date of surgery:01/08/2023 What surgery is patient having (gall bladder, cataract, appendix, etc...)?: Achilles tendon repair and reattach Surgeon's name: Dr. Chino Monsalve Office phone number of surgeon: [phone] Fax # for surgeons office: [phone] (Required) Where is surgery being performed? [facility] Diagnosis/problem for surgery: Torm achillis tendon Is an EKG required for the pre-op workup? YES PCP: Artemio Carney Did you verify that the insurance below is correct? YES [facility] [id number] Patients insurance: Payor: [facility] SELF FUNDED / Plan: PPO $35 [place] [address] / Product Type: PPO [id number] documented in this encounter Plan of Treatment Not on file documented as of this encounter Visit Diagnoses Not on filedocumented in this encounter Care Teams Granite Polisher Relationship Specialty Start Date End Date Artemio Carney MD [address] [place] [address] PCP - General Internal Medicine 08/01/22 documented as of this encounter
[2025-03-14 17:53] LABS: Stone Source KIDSTS1845A
== END 2025-03-03 09:49 | disposition home or self-care (01) ==
LOC: HO.LNP 09:48
PROVIDERS: PCP Internal Medicine; Visit Provider Nurse Practitioner Family
DX: N20.0 Calculus of kidney (principal); N20.1 Calculus of ureter; N13.30 Unspecified hydronephrosis
CPT/HCPCS: 81003; 82365; 88300; 99202

== ENCOUNTER 2025-03-03 09:48 | Outpatient (AMB) | payer MEDICARE, SELFPAY ==
--- NOTE | 2025-03-03 10:05 | MHC.OFFVIS ---
Intake Visit Reasons: bilateral kidney stones/ moderate hydronephrosis Intake Note: New Patient presents for initial visit for kidney stones and hydronephrosis Urology Medications: tamsulosin Blood Thinner: none Applications Architect Required: No Accompanied by: Spouse Allergies morphine [Morphine] Allergy (Unknown, Verified 03/03/25 10:58) ITCH Medication List - Last Reconciled 03/03/25 by MARINA ZafarP- amlodipine 10 mg PO DAILY atorvastatin 40 mg PO DAILY gabapentin 300 mg PO BEDTIME tamsulosin 0.4 mg PO BEDTIME HPI Comments Details: Ruy is a very pleasant 64-year-old male patient of Dr. Carney. He has a past medical history of hypertension, hyperlipidemia, and nephrolithiasis. He presents to the office today as a new patient for nephrolithiasis. In discussion with the patient today he reports having seeked emergency room care last month for right-sided flank pain he had been experiencing at which time a CT was ordered for further assessment evaluation and recommendations were made for urology referral for further assessment evaluation. CT 02/15 4 mm rounded calculus in the right ureterovesical junction with moderate right hydroureteronephrosis and stranding about the right kidney. Several additional tiny collecting system calculi are present bilaterally. He brings with him to the office today renal calculi that he has since urinated. Will send for stone analysis. He discusses having had a longstanding history of nephrolithiasis and previously followed up with [facility] however wishes to establish and continue care here. He denies any previous surgical intervention for nephrolithiasis. He currently denies any bothersome urinary issues or concerns. We discussed the importance of hydration relation to nephrolithiasis as well as overall health and well-being. In office urinalysis results reviewed with the patient today. He otherwise offers no other issues or concerns at this time. Plan 1. 5 liters of urine daily. Dietary adjustments to reduce calcium oxalate intake and supplement Vitamin B6 are advised, along with lemon juice. Patient was informed and verbally consented to the use of an ambient scribe for clinic note documentation during this visit. Discussion Notes The patient's history of kidney stone formation was reviewed, with emphasis on stone analysis and preventive strategies discussed. I proposed an ultrasound to assess hydronephrosis and reiterated the importance of high fluid intake to facilitate stone passage and prevent recurrence. Dietary modification was discussed, focusing on reducing calcium oxalate while ensuring adequate calcium levels. Vitamin B6 and lemon juice were advised as supplementary preventive measures. The potential outcomes, prevention of future stone formation, and risks of non-compliance, such as worsening hydronephrosis, were discussed. The patient was advised on the avoidance of sodas and agreed to adhere to a preventative regimen and 24-hour urine collection consented for metabolic workup. [facility] Social History Patient Tobacco Use Status: Never used Tobacco Advance Directives Date on File: 01/11/25 Review of Systems Const All systems reviewed & are unremarkable except as noted in HPI and below Physical Exam Const General: cooperative, healthy appearing, comfortable, no acute distress, well developed, alert and awake Orientation/consciousness: patient oriented x3 Limitations: no limitations HEENT Head: Yes normal to inspection, Yes normocephalic and Yes atraumatic Ears: hearing grossly normal bilaterally Eyes General: appearance normal, both eyes and all related structures Neck Neck: Yes normal visual inspection and Yes trachea midline Chest Chest palpation & inspection: normal inspection of the chest Resp Effort & Inspection: normal respiratory effort and able to speak in complete sentences Cardio Rate: regular rate GI Inspection: Yes normal to inspection General: Yes no CVA tenderness Back/Spine/Pelvis Back: no CVA tenderness Skin General skin exam: no rashes or lesions noted Neuro General: patient oriented x3 Extrem General: Yes normal to inspection Psych Appearance: grossly normal and well kempt Mental Status: mental status grossly normal Speech and movement: Normal speech and movement present and Clear speech present Affect: normal affect Attitude: cooperative Thought process: Normal thought process present Thought content: Normal thought content present Insight: Fair insight present (Psych) Judgement: Fair judgement present (Psych) Results AMB Urinalysis, Automated UA Leukoctes 15 Calos/uL Last Edit by Gillian Bai on 03/03/25 10:20 UA Nitrite Last Edit by Gillian Bai on 03/03/25 10:20 UA Urobilinogen 0.2 mg/dL Last Edit by Gillian Bai on 03/03/25 10:20 UA Protein 15 mg/dL Last Edit by Gillian Bai on 03/03/25 10:20 UA pH 6.0 Last Edit by Gillian Bai on 03/03/25 10:20 UA Blood 0 Lenard/uL Last Edit by Guillermonarcisobreezy Cervantesconrado on 03/03/25 10:20 UA Specific Emmet 1.020 Last Edit by Guillermonarcisobreezy Cervantesconrado on 03/03/25 10:20 UA Ketone Last Edit by Gillian Helenconrado on 03/03/25 10:20 UA Bilirubin 0 mg/dL Last Edit by Gillian Helenconrado on 03/03/25 10:20 UA Glucose 0 mg/dL Last Edit by Gillian Helenconrado on 03/03/25 10:20 Results Reviewed Results Reviewed: Laboratory Last Values Urine pH (Auto) 6.0 03/03/25 10:18 Specific Emmet (Auto) 1.020 03/03/25 10:18 Urine Protein (Auto) 15 mg/dL 03/03/25 10:18 Glucose (UA)(Auto) 0 mg/dL 03/03/25 10:18 Urine Blood (Auto) 0 Lenard/uL 03/03/25 10:18 Urine Bilirubin (Auto) 0 mg/dL 03/03/25 10:18 Urine Urobilinogen (Auto) 0.2 mg/dL 03/03/25 10:18 Leukocyte Esterase (Auto) 15 Calos/uL 03/03/25 10:18 Date of Service: 02/12/25 Procedure(s): CT abdomen pelvis wo IV con Findings: No consolidation or effusion. There is a 4 mm rounded calculus at the right ureterovesicular junction with moderate right hydroureteronephrosis and stranding about the right kidney. Several additional tiny collecting system calculi are present bilaterally. The gallbladder is surgically absent. The liver exhibits a few tiny low-density lesions, too small to characterize but likely cysts. The spleen, adrenal glands, pancreas, small and large bowel demonstrate no acute process. The appendix is normal. There is diverticulosis without diverticulitis. There is moderate atherosclerotic disease. No acute osseous finding. Impression: 4 mm rounded calculus at the right ureterovesicular junction with moderate right hydroureteronephrosis. Additional nonobstructing calculi bilaterally Incidental findings Assessment & Plan Assessment & Plan (1) Nephrolithiasis: Code(s): N20.0 - Calculus of kidney Category: Medical (2) Hydronephrosis: Code(s): N13.30 - Unspecified hydronephrosis Category: Medical Plan In office urinalysis results reviewed with the patient today; as noted above. We discussed at length potential causes of nephrolithiasis as well as prevention Will send for stone analysis. Will obtain Litholink for further assessment evaluation. Will obtain renal ultrasound for further assessment evaluation. Discussed adding 1 oz of lemon juice to water daily. Discussed initiation of vitamin B6. Follow-up in 1-3 months with Litholink and imaging; or sooner with any issues, concerns, and or questions. Orders: Orders AMB Urinalysis Automated Today Z13.9 - Encounter for screening, unspecified US renal BI Today N20.0 - Calculus of kidney Surgical Today N20.1 - Calculus of ureter Patient Instructions: The patient had an opportunity to ask questions regarding the treatment plan. All questions were answered. Physical exam, labs, and imaging were discussed and reviewed in detail. As well as risks, benefits, and discussion of treatment choices. No major barriers to understanding were identified. The patient expressed understanding and agreement with the above treatment plan. The patient was made aware they should contact our office by phone for worsening of their current condition, the appearance of new symptoms, or with any questions or concerns. Compliance is encouraged with any medications and follow up testing that is ordered. It is a privilege to be allowed the opportunity to participate in? your urological care.? Again, if you have any questions or concerns If you have any questions or concerns please do not hesitate to contact me. The office is [phone]. This note is constructed using voice recognition software. While every effort has been made to ensure accuracy utility porter errors may have been included. Yours sincerely, KANDICE Zafar Coding Level of Care Code New Pt Level 3 (50460) Diagnoses Nephrolithiasis N20.0 Hydronephrosis N13.30
--- OUTSIDE RECORDS SUMMARY | 2025-03-03 11:07 | XMS_ITS | Encounter Summary ---
Author Organization [facility] Address [address] [place] [address] Care Team Providers Care Principal Examiner Name Role Phone Pcp, Sangita Primary Care Provider Artemio Pino MD Primary Care Provider [phone] Encounter Details Date Type Department Care Team (Late st Contact Info) Description 04/27/2024 Scanned Document [facility] [place] [address] Chino Pereira MD [address] [place] [address] Social History Tobacco Use Types Packs/Day Years Used Date Smoking Tobacco: Never Assessed Sex and Gender Information Value Date Recorded Sex Assigned at Not on file Gender Identity Not on file Sexual Orientation Not on file documented as of this encounter Plan of Treatment Not on file documented as of this encounter Visit Diagnoses Not on filedocumented in this encounter Care Teams Principal Examiner Relationship Specialty Start Date End Date Pcp, No PCP - General General Medicine 04/20/24 05/10/24 Artemio Carney MD PCP - General Internal Medicine 05/11/24 documented as of this encounter
--- OUTSIDE RECORDS SUMMARY | 2025-03-03 11:07 | XMS_ITS | Encounter Summary ---
Author Organization [facility] Address [address] [place] [address] Care Team Providers Care Obstetrics Gyn Name Role Phone Pcp, Sangita Primary Care Provider Artemio Pino MD Primary Care Provider [phone] Encounter Details Date Type Department Care Team (Late st Contact Info) Description 04/27/2024 Scanned Document [facility] [place] [address] Chino Pereira MD [address] [place] [address] Social History Tobacco Use Types Packs/Day Years Used Date Smoking Tobacco: Never Assessed Sex and Gender Information Value Date Recorded Sex Assigned at Not on file Gender Identity Not on file Sexual Orientation Not on file documented as of this encounter Plan of Treatment Not on file documented as of this encounter Visit Diagnoses Not on filedocumented in this encounter Care Teams Obstetrics Gyn Relationship Specialty Start Date End Date Pcp, No PCP - General General Medicine 04/20/24 05/10/24 Artemio Carney MD PCP - General Internal Medicine 05/11/24 documented as of this encounter
--- OUTSIDE RECORDS SUMMARY | 2025-03-03 11:07 | XMS_ITS | Encounter Summary ---
Author Organization [facility] Address [address] [place] [address] Care Team Providers Care Sales Representative Printing Paper Name Role Phone Denver Arora MD Primary Care Provider [phone] Pcp, No Primary Care Provider Artemio Pino MD Primary Care Provider [phone] Encounter Details Date Type Department Care Team (Late st Contact Info) Description 08/29/2023 Scanned Document [facility] [place] [address] Chino Pereira MD [address] [place] [address] Social History Tobacco Use Types Packs/Day Years Used Date Smoking Tobacco: Never Assessed Sex and Gender Information Value Date Recorded Sex Assigned at Not on file Gender Identity Not on file Sexual Orientation Not on file documented as of this encounter Plan of Treatment Not on file documented as of this encounter Visit Diagnoses Not on filedocumented in this encounter Care Teams Sales Representative Printing Paper Relationship Specialty Start Date End Date Denver Arora MD PCP - General 06/17/23 04/19/24 Pcp, No PCP - General General Medicine 04/20/24 05/10/24 Artemio Carney MD PCP - General Internal Medicine 05/11/24 documented as of this encounter
--- OUTSIDE RECORDS SUMMARY | 2025-03-03 11:07 | XMS_ITS | Clinical Summary ---
Author Organization [facility] Address [address] [place] [address] Phone Care Team Providers Care Grain Unloader Machine Name Role Phone Artemio Carney MD Primary [...] by the office 2 tablet 5 Active cyclobenzaprine (FLEXERIL) 5 mg tablet Take 1 tablet (5 mg total) by mouth. 5 Active lidocaine (LIDODERM) 5 % patch Apply 1 patch topically 1 (one) time each day. 5 Active naproxen (NAPROSYN) 500 mg tablet Take 1 tablet (500 mg total) by mouth 2 (two) times a day with meals. 180 each 5 Active Active Problems Problem Noted Date Diagnosed Date Cerebrovascular small vessel disease 01/17/2025 Acute pain of left shoulder 01/17/2025 History of recent fall 01/17/2025 Effusion of right knee 05/26/2023 Injury of right Achilles tendon 05/22/2023 Benign prostatic hyperplasia with urinary hesita ncy 09/14/2020 Overview (11/22/2024): Follows with [facility] urology. Cervical adenopathy 12/24/2019 Thyroid nodule 03/09/2019 [...] Varner. Acid reflux 10/13/2015 Overview (11/22/2024): Reflux Encounters Date Type Department Care Team Description 01/26/2025 Telephone Adult Medicine [address] [address] Artemio Carney MD ER f/u 01/17/2025 2:30 PM EST Office Visit Adult [address] [address] Artemio Carney MD Hyperlipidemia, unspecified hyperlipidemia type (Primary Dx); Hypertension, unspecified type; History of recent fall; Acute pain of left shoulder; Cerebrovascular small vessel disease 01/17/2025 Telephone Adult Medicine [address] [address] Artemio Carney MD Fitting for DME 01/12/2025 Telephone Gastroenterology [facility] 175 [facility] [address] [place] [address] Juan Baig MD from Last 3 Months Immunizations Name Administration Dates Next Due Influenza [...] HERNIA REPAIR/UMB OTHER SURGICAL HISTORY 06/06 PROCEDURE: AL OSTECTOMY CALCANEUS SPUR W/WO PLNTAR FASCIAL RLS [...] rpetic neuralgia; COMMENT: Herpes zoster left face, 2013 Tobacco use disorder 10/13/2015 DX:Tobacco use disorder [...] kidney disease) stage 3, GFR 30-59 ml/min (CMS/HCC V24, CMS/HCC V28) 03/25/2019 DX:CKD (chronic kidney disea se) stage 3, GFR 30-59 ml/min ([facility]) Adrenal adenoma 12/31/2017 DX:Adrenal adeno ma; COMMENT: [...] Cigarettes Q uit: 11/24/2016 Smokeless Tobacco: Never Tobacco Cessation:Counseling Given: Not Answered Alcohol Use Standard Drinks/Week Comments Yes 0 (1 standard drink = 0.6 oz pur e alcohol) Sex and Gender Information Value Date Recorded Sex Assigned at Not on file Legal Sex Male 1:43 AM EST Gender Identity Not on file Sexual Orientation Not on file Obstetrics History Last Filed Vital Signs Vital Sign Reading Time Taken Comments Blood Pressure 113/82 01/17/2025 2:35 PM EST Pulse 101 01/17/2025 2:35 PM EST Temperature 35.6 ??C (96.1 ??F) 01/17/2025 2:35 PM ES T Respiratory Rate 16 01/17/2025 2:35 PM EST Oxygen Saturation - - Inhaled Oxygen Concentration - - Weight 123 kg (271 lb) 01/17/2025 2:35 PM EST Height 198.1 cm (6' 6 ) 01/17/2025 2:35 PM EST Body Mass Index 31.32 01/17/2025 2:35 PM EST Plan of Treatment Upcoming Encounters Date Type Department Care Team (Late st Contact Info) Description 05/09/2025 1:30 PM EDT Appointment [facility] Endoscopy [address] [place] [id number] Juan Baig MD 175 [facility] [address] [place] [address] Health Maintenance Due Date Last Done Comments Zoster Vaccines (1 of 2) 2009 Abdominal Aortic Aneurysm (AAA) Screen 11/02/2022 Colorectal Cancer Screening: Colonoscopy 11/02/2022 08/26/2016 Lung Cancer Screening (Low Dose CT) 11/02/2022 Medicare Annual Wellness Visit 11/02/2022 Social Influencers of Health Screening 11/02/2022 COVID-19 Vaccine ( season) 2024 12/09/2022, 03/22/2022, 10/12/2021, Additional history exists Falls Risk Assessment 09/22/2025 09/22/2024 Hypertension/CHF/CAD Annual BMP Blood Test 09/22/2025 09/22/2024, 09/22/2024 Depression Screening 01/14/2026 01/14/2025, 09/22/20 24 DTaP,Tdap,and Td Vaccines (2 - Td or Tdap) 06/25/2026 06/25/2016 Cholesterol Screening (Lipid Panel) 09/22/2029 09/22/2024, 09/22/2024 RSV Immunization Adult Patients (1 - 1-dose 75+ series) 2034 [...] age to complete this topic Meningococcal B Vaccine Aged Out No l onger eligible based on patient's age to complete this topic RSV Immunization Patients Under 20 months Aged Out No longer eligible based on patient's age to complete this topic Varicella Vaccines Aged Out No longer eligible based on patient's age to complete this topic Procedures Procedure Name Priority Date/Time Associated Diagnosis Comments EXTERNAL CT REPORT 02/12/[address] REPORT 02/12/2025 EXTERNAL XRAY REPORT 02/12/2025 EXTERNAL XRAY REPORT 02/12/2025 DEPRESSION SCREENING Routine 09/22/2024 ANNUAL BMP BLOOD TEST Routine 09/22/2024 FALLS RISK ASSESSMENT Routine 09/22/2024 LIPID PANEL Routine 09/22/2024 HEPATITIS C SCREENING Routine 09/04/2016 COLONOSCOPY Routine 08/26/2016 from Last 3 Months or Most Recently Relevant to Health Maintenance Results * External Xray Report (02/12/2025) Only the most recent of2 resultswithin the time period is included. Anatomical Region Laterality Modality Radiographic Angelita ging Provider [facility] XR PROCEDURES Final Result * External CT Report (02/12/2025) Only the most recent of2 resultswithin the time period is included. Anatomical Region Laterality Modality Computed Tomogra phy Provider [facility] CT PROCEDURES Final Result * Annual BMP Blood Test (09/22/2024) Annual BMP Blood Test abstracted Historical Provider HEALTH MAINTENANCE Final Result * Falls Risk Assessment (09/22/2024) [facility] Falls Risk Assessment abstracted [facility] Provider HEALTH MAINTENANCE Final Result * Depression Screening (09/22/2024) Pathologist [facility] Depression Screening abstracted [facility] Provider HEALTH MAINTENANCE Final Result * (ABNORMAL) Lipid panel (09/22/2024) [facility] LDL/HDL Ratio 3 0 - 4 Triglycerides 89 0 - 150 mg/dL Cholesterol 244(A) 0 - 200 mg/dL HDL 72 >=40 mg/dL LDL Cholesterol 155(A) 0 - 100 mg/dL Blood Venous blood specimen / Unknown Result [facility] Provider LAB BLOOD ORDERABLES Mis l Result * Hepatitis C Screening (09/04/2016) [facility] Hepatitis C Screening abstracted [facility] Provider HEALTH MAINTENANCE Final Result * Colonoscopy (08/26/2016) [facility] Colonoscopy no interpretation , abstracted Anatomical Region Laterality Modality Other [facility] Provider HEALTH MAINTENANCE Final Result from Last 3 Months or Most Recently Relevant to Health Maintenance Insurance MEDICARE Care Teams Grain Unloader Machine Relationship Specialty Start Date End Date Artemio Carney MD [address] [place] [address] PCP - General Internal Medicine 01/17/25
--- OUTSIDE RECORDS SUMMARY | 2025-03-03 11:07 | XMS_ITS | Encounter Summary ---
Author Organization [facility] Address [address] [place] [address] Care Team Providers Care Executive Vp Name Role Phone Denver Arora MD Primary Care Provider [phone] Pcp, No Primary Care Provider Artemio Pino MD Primary Care Provider [phone] -[phone] Encounter Details Date Type Department Care Team (Late st Contact Info) Description 06/02/2023 Scanned Document [place] [address] Chino Pereira MD [address] [place] [address] Social History Tobacco Use Types Packs/Day Years Used Date Smoking Tobacco: Never Assessed Sex and Gender Information Value Date Recorded Sex Assigned at Not on file Gender Identity Not on file Sexual Orientation Not on file documented as of this encounter Plan of Treatment Not on file documented as of this encounter Visit Diagnoses Not on filedocumented in this encounter Care Teams Executive Vp Relationship Specialty Start Date End Date Denver Arora MD PCP - General 06/17/23 04/19/24 Pcp, No PCP - General General Medicine 04/20/24 05/10/24 Artemio Carney MD PCP - General Internal Medicine 05/11/24 documented as of this encounter
--- OUTSIDE RECORDS SUMMARY | 2025-03-03 11:07 | XMS_ITS | Encounter Summary ---
Author Organization [facility] Address [address] [place] [address] Care Team Providers Care Fur Repair Inspector Name Role Phone Denver Arora MD Primary Care Provider [phone] Pcp, No Primary Care Provider Artemio Pino MD Primary Care Provider [phone] -[phone] Encounter Details Date Type Department Care Team (Late st Contact Info) Description 08/20/2023 Scanned Document [place] [address] Chino Pereira MD [address] [place] [address] Social History Tobacco Use Types Packs/Day Years Used Date Smoking Tobacco: Never Assessed Sex and Gender Information Value Date Recorded Sex Assigned at Not on file Gender Identity Not on file Sexual Orientation Not on file documented as of this encounter Plan of Treatment Not on file documented as of this encounter Visit Diagnoses Not on filedocumented in this encounter Care Teams Fur Repair Inspector Relationship Specialty Start Date End Date Denver Arora MD PCP - General 06/17/23 04/19/24 Pcp, No PCP - General General Medicine 04/20/24 05/10/24 Artemio Carney MD PCP - General Internal Medicine 05/11/24 documented as of this encounter
--- OUTSIDE RECORDS SUMMARY | 2025-03-03 11:07 | XMS_ITS | Encounter Summary ---
Author Organization [facility] Address [address] [place] [address] Care Team Providers Care Civil Engineer Land Development Name Role Phone Artemio Carney MD Primary Care Provider [phone] Encounter Details Date Type Department Care Team ([facility] st Contact Info) Description 05/18/2024 Scanned Document [facility] [address] Chino Pereira MD [address] [place] [address] Social History Tobacco Use Types Packs/Day Years Used Date Smoking Tobacco: Never Assessed Sex and Gender Information Value Date Recorded Sex Assigned at Not on file Gender Identity Not on file Sexual Orientation Not on file documented as of this encounter Plan of Treatment Not on file documented as of this encounter Visit Diagnoses Not on filedocumented in this encounter Care Teams Civil Engineer Land Development Relationship Specialty Start Date End Date Artemio Carney MD PCP - General Internal Medicine 05/11/24 documented as of this encounter
--- OUTSIDE RECORDS SUMMARY | 2025-03-03 11:07 | XMS_ITS | Encounter Summary ---
Author Organization [facility] Address [address] [place] [address] Care Team Providers Care Freelance Court Stenographer Name Role Phone Artemio Carney MD Primary Care Provider [phone] Encounter Details Date Type Department Care Team (Late st Contact Info) Description 05/24/2024 Scanned Document [facility] [address] [place] [address] Ariela Riddle [address] [facility] [address] [place] [address] Social History Tobacco Use Types Packs/Day Years Used Date Smoking Tobacco: Never Assessed Sex and Gender Information Value Date Recorded Sex Assigned at Not on file Gender Identity Not on file Sexual Orientation Not on file documented as of this encounter Plan of Treatment Not on file documented as of this encounter Visit Diagnoses Not on filedocumented in this encounter Care Teams Freelance Court Stenographer Relationship Specialty Start Date End Date Artemio Carney MD PCP - General Internal Medicine 05/11/24 documented as of this encounter
--- OUTSIDE RECORDS SUMMARY | 2025-03-03 11:07 | XMS_ITS | Encounter Summary ---
Author Organization [facility] Address [address] [place] [address] Care Team Providers Care Campus Administrator Name Role Phone Pcp, Sangita Primary Care Provider Artemio Pino MD Primary Care Provider [phone] Encounter Details Date Type Department Care Team (Late st Contact Info) Description 04/22/2024 Scanned Document [facility] [place] [address] Chino Pereira MD [address] [place] [address] Social History Tobacco Use Types Packs/Day Years Used Date Smoking Tobacco: Never Assessed Sex and Gender Information Value Date Recorded Sex Assigned at Not on file Gender Identity Not on file Sexual Orientation Not on file documented as of this encounter Plan of Treatment Not on file documented as of this encounter Visit Diagnoses Not on filedocumented in this encounter Care Teams Campus Administrator Relationship Specialty Start Date End Date Pcp, No PCP - General General Medicine 04/20/24 05/10/24 Artemio Carney MD PCP - General Internal Medicine 05/11/24 documented as of this encounter
--- OUTSIDE RECORDS SUMMARY | 2025-03-03 11:07 | XMS_ITS | Clinical Summary ---
Author Organization [facility] Address [address] [place] [address] Care Team Providers Care Iron Melter Name Role Phone Artemio Carney MD Primary Care Provider [phone] Allergies No known active allergies Medications No known medications Active Problems No known active problems Encounters Date Type Department Care Team Description 01/24/2025 2:30 PM EST Consult [facility] [place] [address] Constantino Phipps MD Traumatic complete tear of left rotator cuff, initial encounter (Primary Dx); Shoulder pain, unspecified chronicity, unspecified laterality from Last 3 Months Social History Tobacco Use Types Packs/Day Years [...] Zoster (Shingles) Vaccine (1 of 2) 2009 COVID-19 Vaccine ( - season) 2024 12/09/2022, 10/12/2021, 12/20/2020, Additional history exists RSV Vaccine 60 years and older and Patients (1 - 1-dose 75+ series) 2034 Influenza Vaccine Completed 09/22/2024, , 09/15/2023, Additional history exists Hepatitis B Vaccines Aged Out No long er eligible based on patient's age to complete this topic Care Teams Iron Melter Relationship Specialty Start Date End Date Artemio Carney MD PCP - General Internal Medicine 05/11/24
--- OUTSIDE RECORDS SUMMARY | 2025-03-03 11:07 | XMS_ITS | Encounter Summary ---
Author Organization [facility] Address [address] [place] [address] Care Team Providers Care Publication Editor Name Role Phone Denver Arora MD Primary Care Provider [phone] Pcp, No Primary Care Provider Artemio Pino MD Primary Care Provider [phone] Encounter Details Date Type Department Care Team (Late st Contact Info) Description 08/20/2023 Scanned Document [place] [address] Chino Pereira MD [address] [place] [address] Social History Tobacco Use Types Packs/Day Years Used Date Smoking Tobacco: Never Assessed Sex and Gender Information Value Date Recorded Sex Assigned at Not on file Gender Identity Not on file Sexual Orientation Not on file documented as of this encounter Plan of Treatment Not on file documented as of this encounter Visit Diagnoses Not on filedocumented in this encounter Care Teams Publication Editor Relationship Specialty Start Date End Date Denver Arora MD PCP - General 06/17/23 04/19/24 Pcp, No PCP - General General Medicine 04/20/24 05/10/24 Artemio Carney MD PCP - General Internal Medicine 05/11/24 documented as of this encounter
--- OUTSIDE RECORDS SUMMARY | 2025-03-03 11:07 | XMS_ITS | Encounter Summary ---
Author Organization [facility] Address [address] [place] [address] Care Team Providers Care Laydown Machine Operator Name Role Phone Pcp, Sangita Primary Care Provider Artemio Pino MD Primary Care Provider [phone] Encounter Details Date Type Department Care Team (Late st Contact Info) Description 05/10/2024 Scanned Document [facility] [address] Chino Pereira MD [address] [place] [address] Social History Tobacco Use Types Packs/Day Years Used Date Smoking Tobacco: Never Assessed Sex and Gender Information Value Date Recorded Sex Assigned at Not on file Gender Identity Not on file Sexual Orientation Not on file documented as of this encounter Plan of Treatment Not on file documented as of this encounter Visit Diagnoses Not on filedocumented in this encounter Care Teams Laydown Machine Operator Relationship Specialty Start Date End Date Pcp, No PCP - General General Medicine 04/20/24 05/10/24 Artemio Carney MD PCP - General Internal Medicine 05/11/24 documented as of this encounter
--- OUTSIDE RECORDS SUMMARY | 2025-03-03 11:07 | XMS_ITS | Encounter Summary ---
Author Organization [facility] Address [address] [place] [address] Care Team Providers Care Wood Science Professor Name Role Phone Artemio Carney MD Primary Care Provider [phone] Encounter Details Date Type Department Care Team (Late st Contact Info) Description 05/12/2024 Scanned Document [facility] [address] [place] [address] Ariela Riddle [address] [facility] [address] [place] [address] Social History Tobacco Use Types Packs/Day Years Used Date Smoking Tobacco: Never Assessed Sex and Gender Information Value Date Recorded Sex Assigned at Not on file Gender Identity Not on file Sexual Orientation Not on file documented as of this encounter Plan of Treatment Not on file documented as of this encounter Visit Diagnoses Not on filedocumented in this encounter Care Teams Wood Science Professor Relationship Specialty Start Date End Date Artemio Carney MD PCP - General Internal Medicine 05/11/24 documented as of this encounter
== END 2025-03-03 10:59 | disposition home or self-care (01) ==
LOC: HO.HUSH 09:48
PROVIDERS: PCP Internal Medicine; Visit Provider Nurse Practitioner Family
DX: N20.0 Calculus of kidney (principal); N13.30 Unspecified hydronephrosis; Z13.9 Encounter for screening, unspecified
CPT/HCPCS: 99203

== ENCOUNTER 2025-09-29 09:00 | Outpatient (RCR) | payer MEDICARE, SELFPAY | END 2025-11-04 11:09 | disposition home or self-care (01) | LOC: HO.PTCHIC 09:00 | PROVIDERS: PCP Internal Medicine | DX: M75.122 Complete rotator cuff tear or rupture of left shoulder, not specified as traumatic (principal); Z98.890 Other specified postprocedural states | CPT/HCPCS: 97110; 97140; 97161 ==

== ENCOUNTER 2025-11-07 12:53 | Outpatient (REF) | payer MEDICARE, SELFPAY ==
--- NOTE | ~2025-11-07 | US_ITS ---
EXAMINATION: US RETROPERITONEAL LIMITED (RENAL ONLY) CLINICAL INFORMATION: [place] of kidney.. COMPARISON: None. Correlation made with CT abdomen and pelvis 02/12/2025. TECHNIQUE: Real-time imaging of the kidneys. FINDINGS: RIGHT KIDNEY: [9 x 7.1 x 6.1 cm (SAG x AP x TRV). The kidney is normal in size, contour, and echogenicity. Renal cortical thickness is normal. No calculi or focal parenchymal lesions. No hydronephrosis. LEFT KIDNEY: 12.8 x 6.4 x 5.7 cm (SAG x AP x TRV). The kidney is normal in size, contour, and echogenicity. Renal cortical thickness is normal. No focal parenchymal lesions. No hydronephrosis. Lower pole calculus measuring 5 x 3 x 2 mm. US/US renal BI IMPRESSION: No hydronephrosis. Left kidney lower pole calculus measuring 5 x 3 x 2 mm.. Electronically signed by: Emil Gonzales MD 11/07/2025 02:38 PM EST
--- OUTSIDE RECORDS SUMMARY | 2025-11-07 18:38 | XMS_ITS | Encounter Summary ---
Author Organization [facility] Address [address] [place] [address] Care Team Providers Care Radiographic Technologist Name Role Phone Artemio aCrney MD Primary Care Provider Jovita figueroa Encounter Details Date Type Department Care Team (Late st Contact Info) Description 06/15/2025 Scanned Document [facility] [address] [address] Constantino Phipps MD [address] [place] [address] Social History Tobacco Use Types Packs/Day Years Used Date Smoking Tobacco: Never Assessed Sex and Gender Information Value Date Recorded Sex Assigned at Male 03/31/2025 4:00 PM EDT Legal Sex Male 10:17 AM EDT Gender Identity Male 03/31/2025 4:00 PM EDT Sexual Orientation Not on file documented as of this encounter Plan of Treatment Not on file documented as of this encounter Visit Diagnoses Not on filedocumented in this encounter Care Teams Radiographic Technologist Relationship Specialty Start Date End Date Artemio Carney MD PCP - General Internal Medicine 05/11/24 documented as of this encounter
--- OUTSIDE RECORDS SUMMARY | 2025-11-07 18:38 | XMS_ITS | Encounter Summary ---
Author Organization [facility] Address [address] [place] [address] Care Team Providers Care Packaging Engineer Name Role Phone Denver Arora MD Primary Care Provider [phone] Pcp, No Primary Care Provider Artemio Pino MD Primary Care Provider Jovita figueroa Encounter Details Date Type Department Care Team (Late st Contact Info) Description 06/02/2023 Scanned [place] [address] Chino Pereira MD [address] [place] [address] Social History Tobacco Use Types Packs/Day Years [...] on filedocumented in this encounter Care Teams Packaging Engineer Relationship Specialty Start Date End Date Denver Arora MD PCP - General 06/17/23 04/19/24 Pcp, No PCP - General General Medicine 04/20/24 05/10/24 Artemio Carney MD PCP - General Internal Medicine 05/11/24 documented as of this encounter
--- OUTSIDE RECORDS SUMMARY | 2025-11-07 18:38 | XMS_ITS | Encounter Summary ---
Author Organization [facility] Address [address] [place] [address] Care Team Providers Care Columnist/Commentator Name Role Phone Denver Arora MD Primary Care Provider [phone] Pcp, No Primary Care Provider Artemio Pino MD Primary Care Provider Jovita figueroa Encounter Details Date Type Department Care Team (Late st Contact Info) Description 08/20/2023 Scanned Document [facility] [address] Chino Pereira MD [address] [place] [address] Social History Tobacco Use Types Packs/Day Years [...] on filedocumented in this encounter Care Teams Columnist/Commentator Relationship Specialty Start Date End Date Denver Arora MD PCP - General 06/17/23 04/19/24 Pcp, No PCP - General General Medicine 04/20/24 05/10/24 Artemio Carney MD PCP - General Internal Medicine 05/11/24 documented as of this encounter
--- OUTSIDE RECORDS SUMMARY | 2025-11-07 18:38 | XMS_ITS | Encounter Summary ---
Author Organization [facility] Address [address] [place] [address] Care Team Providers Care Hvac Instructor Name Role Phone Denver Arora MD Primary Care Provider [phone] Pcp, No Primary Care Provider Artemio Pino MD Primary Care Provider Jovita figueroa Encounter Details Date Type Department Care Team (Late st Contact Info) Description 08/29/2023 Scanned Document [place] [address] Chino Pereira MD [address] [place] [address] Social History Tobacco Use Types Packs/Day Years [...] on filedocumented in this encounter Care Teams Hvac Instructor Relationship Specialty Start Date End Date Denver Arora MD PCP - General 06/17/23 04/19/24 Pcp, No PCP - General General Medicine 04/20/24 05/10/24 Artemio Carney MD PCP - General Internal Medicine 05/11/24 documented as of this encounter
--- OUTSIDE RECORDS SUMMARY | 2025-11-07 18:38 | XMS_ITS | Encounter Summary ---
Author Organization [facility] Address [address] [place] [address] Care Team Providers Care Multiple Needle Stitcher Name Role Phone Denver Arora MD Primary Care Provider [phone] Pcp, No Primary Care Provider Artemio Pino MD Primary Care Provider Jovita figueora Encounter Details Date Type Department Care Team (Late st Contact Info) Description 08/20/2023 Scanned Document [facility] [address] Chino Pereira MD [address] [place] [address] Social History Tobacco Use Types Packs/Day Years [...] on filedocumented in this encounter Care Teams Multiple Needle Stitcher Relationship Specialty Start Date End Date Denver Arora MD PCP - General 06/17/23 04/19/24 Pcp, No PCP - General General Medicine 04/20/24 05/10/24 Artemio Carney MD PCP - General Internal Medicine 05/11/24 documented as of this encounter
--- OUTSIDE RECORDS SUMMARY | 2025-11-07 18:39 | XMS_ITS | Encounter Summary ---
Author Organization [facility] Address [address] [place] [address] Care Team Providers Care Security Developer Name Role Phone Pcp, Sangita Primary Care Provider Artemio Pino MD Primary Care Provider Jovita figueroa Encounter Details Date Type Department Care Team (Late st Contact Info) Description 04/27/2024 Scanned Document [facility] [address] Chino Pereira MD [address] [place] [address] Social History Tobacco Use Types Packs/Day Years [...] on filedocumented in this encounter Care Teams Security Developer Relationship Specialty Start Date End Date Pcp, Sangita PCP - General General Medicine 04/20/24 05/10/24 Artemio Carney MD PCP - General Internal Medicine 05/11/24 documented as of this encounter
--- OUTSIDE RECORDS SUMMARY | 2025-11-07 18:39 | XMS_ITS | Encounter Summary ---
Author Organization [facility] Address [address] [place] [address] Care Team Providers Care Director Clinical Operations Name Role Phone Pcp, Sangita Primary Care Provider Artemio Pino MD Primary Care Provider Jovita figueroa Encounter Details Date Type Department Care Team (Late st Contact Info) Description 04/22/2024 Scanned Document [facility] [address] Chino Pereira MD [address] [place] [address] Social History Tobacco Use Types Packs/Day Years [...] filedocumented in this encounter Care Teams Director Clinical Operations Relationship Specialty Start Date End Date Pcp, Sangita PCP - General General Medicine 04/20/24 05/10/24 Artemio Carney MD PCP - General Internal Medicine 05/11/24 documented as of this encounter
--- OUTSIDE RECORDS SUMMARY | 2025-11-07 18:39 | XMS_ITS | Encounter Summary ---
Author Organization [facility] Address [address] [place] [address] Care Team Providers Care Bilingual Loan Processor Name Role Phone Pcp, Sangita Primary Care Provider Artemio Pino MD Primary Care Provider Jovita figueroa Encounter Details Date Type Department Care Team (Late st Contact Info) Description 04/27/2024 Scanned Document [facility] [place] [address] Chino Pereira MD [address] [place] [address] Social History Tobacco Use Types Packs/Day Years [...] on filedocumented in this encounter Care Teams Bilingual Loan Processor Relationship Specialty Start Date End Date Pcp, Sangita PCP - General General Medicine 04/20/24 05/10/24 Artemio Carney MD PCP - General Internal Medicine 05/11/24 documented as of this encounter
--- OUTSIDE RECORDS SUMMARY | 2025-11-07 18:39 | XMS_ITS ---
Author Name [facility] Organization Unknown History of Medication Use Medication Directions Dispensed Refills Start Date End Date Stat aspirin enteric coated (ECOTRIN LOW STRENGTH) 81 MG EC tablet Take 1 tablet (81 mg total) by mouth 2 times a day. 04/24/2025 active ketorolac (TORADOL) 10 MG tablet Take 1 tablet (10 mg total) by mouth every 6 (six) hours. 04/24/2025 active methocarbamol (ROBAXIN) 750 MG tablet Take 1 tablet (750 mg total) by mouth 4 (four) times a day. 1 tab every 6 hours as needed 04/24/2025 active ondansetron (ZOFRAN-ODT) 4 MG disintegrating tablet Take 1 tablet (4 mg total) by mouth 3 times daily (every 8 hours) as needed for nausea or vomiting. Place tablet on tongue to dissolve. 04/24/2025 active oxyCODONE-acetaminophen (PERCOCET) 5-325 mg per tablet Take 1-2 tablets by mouth every 4 (four) hours as needed for severe pain. Max Daily Amount: 12 tablets 04/24/2025 active senna-docusate (SENNA-S) 8.6-50 MG Take 2 tablets by mouth 2 (two) times a day as needed for constipation. 04/24/2025 active gabapentin (NEURONTIN) 300 MG capsule Take 1 capsule (300 mg total) by mouth 3 (three) times a day. 04/01/2025 active methylPREDNISolone (MEDROL DOSEPAK) 4 MG tablet follow package directions 04/01/2025 active betamethasone acetate-betamethasone sodium phosphate (CELESTONE) injection 3 mg 3 mg, Intra-articular, Once PRN Procedure, Starting on Fri09/02/23 at 1000, For 1 dose 09/02/2023 09/02/20 completed No known medications No known medications active Problems Problem Status Onset Date Problem Type Date of Resoluti on Source Status post rotator cuff [facility] Encounter Type Encounter Reason Primary Diagnosis Location Date Ambulatory Pain Pain [facility] 09/16/2025 Ambulatory Other specified postprocedural states Other specified postprocedural states [facility] 07/07/2025 Ambulatory Other specified postprocedural states Other specified postprocedural states [facility] 06/03/2025 Ambulatory Other specified postprocedural states Other specified postprocedural states [facility] 05/06/2025 Ambulatory MODIFY Complete rotator cuff tear or rupture of left shoulder, not specified as traumatic [facility] 04/26/2025 Ambulatory Complete rotator cuf f tear or rupture of left shoulder, not specified as traumatic Complete rotator cuff tear or rupture of left shoulder, not specified as traumatic [facility] 04/01/2025 Ambulatory [facility] 01/24/2025 Ambulatory Strain of muscle(s) and tendon(s) of the rotator cuff of left shoulder, initial encounter Strain of muscle(s) and tendon(s) of the rotator cuff of left shoulder, initial encounter [facility] 01/24/2025 Ambulatory Pain in right leg Pain in right leg [facility] 06/23/2024 Ambulatory Pain Pain [facility] 05/11/2024 Ambulatory [facility] 04/20/2024 Ambulatory Pain in right ankle and joints of right foot Pain in right ankle and joints of right foot [facility] 04/20/2024 Ambulatory Achilles tendinitis, right leg Achilles tendinitis, right leg [facility] 10/14/2023 Ambulatory Unspecified disorder of synovium and tendon, right ankle and foot Unspecified disorder of synovium and tendon, right ankle and foot [facility] 09/02/2023 Ambulatory Achilles tendinitis, right leg Achilles tendinitis, right leg [facility] 08/19/2023 Ambulatory Calcific tendinitis, other site Calcific tendinitis, other site [facility] 06/17/2023 Care Team Organization Name Specialty Phone Email Start Date End Da te [facility] 04/07/2025 [facility] CHEO Primary Care 04/01/2025 10/15/2025 [facility] ROGERS CHEO Primary Care 05/11/2024 [facility] NO PCP Primary Care 04/20/2024 [facility] JUAN FERRER Primary Care 08/19/2023 10/15/2025 [facility] 06/17/2023 10/15/2025 [facility] JUAN FERRER Primary Care 06/17/2023 08/19/2023 [facility] 06/17/2023 06/17/2023 [facility] Ana Luisa Matos Primary Care 10/01/20222023
--- OUTSIDE RECORDS SUMMARY | 2025-11-07 18:39 | XMS_ITS | Encounter Summary ---
Author Organization [facility] Address [address] [place] [address] Care Team Providers Care Ethyl Blender Name Role Phone Artemio Carney MD Primary Care Provider Jovita figueroa Encounter Details Date Type Department Care Team ([facility] st Contact Info) Description 05/18/2024 Scanned Document [facility] [address] Chino Pereira MD [address] [place] [address] Social History Tobacco Use Types Packs/Day Years [...] on filedocumented in this encounter Care Teams Ethyl Blender Relationship Specialty Start Date End Date Atremio Carney MD PCP - General Internal Medicine 05/11/24 documented as of this encounter
--- OUTSIDE RECORDS SUMMARY | 2025-11-07 18:39 | XMS_ITS | Encounter Summary ---
Author Organization [facility] Address [address] [place] [address] Care Team Providers Care Sawmill Tally Clerk Name Role Phone Artemio Carney MD Primary Care Provider Jovita figueroa Encounter Details Date Type Department Care Team (Late st Contact Info) Description 04/26/2025 Scanned Document [facility] [address] [phone] Constantino Phipps MD [address] [place] [address] Social History Tobacco Use Types Packs/Day Years [...] on filedocumented in this encounter Care Teams Sawmill Tally Clerk Relationship Specialty Start Date End Date Artemio Carney MD PCP - General Internal Medicine 05/11/24 documented as of this encounter
--- OUTSIDE RECORDS SUMMARY | 2025-11-07 18:39 | XMS_ITS | Encounter Summary ---
Author Organization [facility] Address [address] [place] [address] Care Team Providers Care Dental Ceramist Helper Name Role Phone Artemio Carney MD Primary Care Provider Jovita figueroa Encounter Details Date Type Department Care Team (Late st Contact Info) Description 05/12/2024 Scanned Document [facility] [address] [place] [address] Ariela Riddle [address] [facility] [address] [place] [address] Social History Tobacco Use Types Packs/Day Years [...] on filedocumented in this encounter Care Teams Dental Ceramist Helper Relationship Specialty Start Date End Date Artemio Carney MD PCP - General Internal Medicine 05/11/24 documented as of this encounter
--- OUTSIDE RECORDS SUMMARY | 2025-11-07 18:39 | XMS_ITS | Encounter Summary ---
Author Organization [facility] Address [address] [place] [address] Care Team Providers Care Carding Utility Tender Name Role Phone Pcp, Sangita Primary Care Provider Artemio Pino MD Primary Care Provider Jovita figueroa Encounter Details Date Type Department Care Team (Late st Contact Info) Description 05/10/2024 Scanned Document [facility] [address] Chino Pereira MD [address] [place] [address] Social History Tobacco Use Types Packs/Day Years [...] on filedocumented in this encounter Care Teams Carding Utility Tender Relationship Specialty Start Date End Date Pcp, No PCP - General General Medicine 04/20/24 05/10/24 Artemio Carney MD PCP - General Internal Medicine 05/11/24 documented as of this encounter
--- OUTSIDE RECORDS SUMMARY | 2025-11-07 18:39 | XMS_ITS | Clinical Summary ---
Author Organization [facility] Address [address] [place] [id number] Care Team Providers Care Tool And Cutter Grinder Name Role Phone Artemio Carney MD Primary Care Provider Jovita labdinorah Allergies No known active allergies Medications gabapentin (NEURONTIN) 300 MG capsuleIndications :Cervical radiculopathy Take 1 capsule (300 mg total) by mouth 3 (three) times a day. 90 capsule 5 Active methylPREDNISolone (MEDROL DOSEPAK) 4 MG tabletIndications: Cervical radiculopathy follow package directions 21 tablet 5 Active ketorolac (TORADOL) 10 MG tabletIndications: Nontraumatic complete tear of left rotator cuff Take 1 tablet (10 mg total) by mouth every 6 (six) hours. 20 tablet 5 Active oxyCODONE-acetamin ophen (PERCOCET) 5-325 mg per tabletIndications: Nontraumatic complete tear of left rotator cuff Take 1-2 tablets by mouth every 4 (four) hours as needed for severe pain. Max Daily Amount: 12 tablets 42 tablet 5 Active methocarbamol (ROBAXIN) 750 MG tabletIndications: Nontraumatic complete tear of left rotator cuff Take 1 tablet (750 mg total) by mouth 4 (four) times a day. 1 tab every 6 hours as needed 28 tablet 5 Active aspirin enteric coated (ECOTRIN LOW STRENGTH) 81 MG EC tabletIndications: Nontraumatic complete tear of left rotator cuff Take 1 tablet (81 mg total) by mouth 2 times a day. 28 tablet 5 Active senna-docusate (SENNA-S) 8.6-50 MGIndications:Nont raumatic complete tear of left rotator cuff Take 2 tablets by mouth 2 (two) times a day as needed for constipation. 30 tablet 1 5 Active ondansetron (ZOFRAN-ODT) 4 MG disintegrating tabletIndications: Nontraumatic complete tear of left rotator cuff Take 1 tablet (4 mg total) by mouth 3 times daily (every 8 hours) as needed for nausea or vomiting. Place tablet on tongue to dissolve. 21 tablet 5 Active Active Problems No known active problems Encounters Date Type Department Care Team Description 09/16/2025 10:15 AM EDT Office [place] [facility] [address] Constantino Phipps MD 04/26/25 L shoulder RCR (anterosuperior tear), biceps tenodesis (Primary Dx) from Last 3 Months Social History Tobacco Use Types Packs/Day Years Used Date Smoking Tobacco: Never Assessed Sex and Gender Information Value Date Recorded Sex Assigned at Male 03/31/2025 4:00 PM EDT Legal Sex Male 10:17 AM EDT Gender Identity Male 03/31/2025 4:00 PM EDT Sexual Orientation Not on file Plan of Treatment Health Maintenance Due Date Last Done Comments Advance Care Planning 1960 Hepatitis C Virus Screening 1960 DTaP/Tdap/Td Vaccines (1 - Tdap) 1978 Colonoscopy 2004 Pneumococcal Vaccines 50+ (1 of 1 - PCV) 2009 Zoster (Shingles) Vaccine (1 of 2) 2009 Influenza Vaccine 06/24/2025 09/22/2024, , 09/15/2023, Additional history exists COVID-19 Vaccine ( season) 2025 12/09/2022, 10/12/2021, 12/20/2020, Additional history exists RSV Vaccine 50 years and older and Patients (1 - 1-dose 75+ series) 2034 Hepatitis B Vaccines Aged Out No long er eligible based on patient's age to complete this topic Insurance [employer] MEDICARE PART A & B TRAVELERS Care Teams Tool And Cutter Grinder Relationship Specialty Start Date End Date Artemio Carney MD PCP - General Internal Medicine 05/11/24
--- OUTSIDE RECORDS SUMMARY | 2025-11-07 18:39 | XMS_ITS | Encounter Summary ---
Author Organization [facility] Address [address] [place] [address] Care Team Providers Care Riveting Machine Operator Tape Control Name Role Phone Artemio Carney MD Primary Care Provider Jovita figueroa Encounter Details Date Type Department Care Team (Late st Contact Info) Description 05/24/2024 Scanned Document [facility] [address] [place] [address] Ariela Riddle [address] [facility] [address] [place] [address] Social History Tobacco Use Types Packs/Day Years [...] on filedocumented in this encounter Care Teams Riveting Machine Operator Tape Control Relationship Specialty Start Date End Date Artemio Carney MD PCP - General Internal Medicine 05/11/24 documented as of this encounter
--- OUTSIDE RECORDS SUMMARY | 2025-11-07 18:39 | XMS_ITS | Clinical Summary ---
Author Organization [facility] Address [address] [place] [phone] Phone Care Team Providers Care Microbiology Soil Scientist Name Role Phone Artemio Carney MD Primary Care Provider Allergies No known active allergies Medications ibuprofen (ADVIL,MOTRIN) 800 mg tablet Take 1 Tablet by mouth every 8 hours as needed for Pain. 05/05/20 24 Active lidocaine (LIDODERM) 5 % patch Apply 1 patch topically 1 (one) time each day. 01/11/20 25 Active hydroCHLOROthi azide (MICROZIDE) 12.5 mg capsule Take 1 capsule (12.5 mg total) by mouth 1 (one) time each day in the morning. 90 each 1 04/13/20 25 Active amLODIPine (NORVASC) 5 mg tablet Take 1 tablet (5 mg total) by mouth 1 (one) time each day. 90 each 1 05/24/20 25 Active atorvastatin (LIPITOR) 40 mg tablet Take 1 tablet (40 mg total) by mouth 1 (one) time each day. 90 each 1 05/24/20 25 Active gabapentin (NEURONTIN) 300 mg capsuleIndicat ions:Unspecifi ed injury of right Achilles tendon, sequela TAKE 3 CAPSULES BY MOUTH EVERY DAY 270 capsule 1 06/27/20 25 Active omeprazole (PriLOSEC) [address] capsule TAKE 1 CAPSULE BY MOUTH 1 TIME EACH DAY. DO NOT CRUSH OR CHEW. 90 capsule 1 11/04/20 25 Active omeprazole (PriLOSEC) [address] capsule Take 1 capsule (20 mg total) by mouth 1 (one) time each day. Do not crush or chew. 90 each 1 04/13/20 25 025 Discontinued Active Problems Problem Noted Date Diagnosed Date S/P rotator cuff repair 05/24/2025 Assessment & Plan (05/24/2025 10:01 PM EDT): Cerebrovascular small vessel disease 01/17/2025 Assessment & Plan (05/24/2025 10:01 PM EDT): Acute pain of left shoulder 01/17/2025 History of recent fall 01/17/2025 Effusion of right knee 05/26/2023 Injury of right Achilles tendon 05/22/2023 Benign prostatic hyperplasia with urinary hesita ncy 09/14/2020 Overview (11/22/2024): Follows with [facility] urology. Cervical adenopathy 12/24/2019 Thyroid nodule 03/09/2019 Adrenal adenoma 12/31/2017 Overview (11/22/2024): Bilateral adrenal adenomas on CT scan of 12/29/2017. 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 Two polyps in the distal rectum. Dr. Varner. Acid reflux 10/13/2015 Overview (11/22/2024): Reflux Immunizations Immunization Administration Dates Next Due Influenza Quadravalent, MDCK [...] HERNIA REPAIR/UMB OTHER SURGICAL HISTORY 06/06 PROCEDURE: VA OSTECTOMY CALCANEUS SPUR W/WO PLNTAR FASCIAL RLS [...] disea se) stage 3, GFR 30-59 ml/min ([facility]) Adrenal adenoma 12/31/2017 DX:Adrenal adeno ma; COMMENT: [...] Years Used Date Smoking Tobacco: Former Cigarettes 0 Q uit: 11/24/2016 Smokeless Tobacco: Never Alcohol Use Standard Drinks/Week Comments Yes 0 (1 standard drink = 0.6 oz pur e alcohol) Housing Instability Answer Date Recorde d Are you worried that in the next 2 months you may not have stable housing? No 05/24/2025 Food Access & Nutrition Answer Date Rec orded Do you have access to a vari ety of food including fruits and vegetables? Yes 05/24/2025 Access to Healthcare Answer Date Record ed Within the last 3 months, ho carmela many times did you visit the emergency department for your medical care? 1 05/24/2025 Health Literacy Answer Date Recorded How often do you need to hav e someone help you when you read instructions, pamphlets, or other written material from your doctor or pharmacy? Never 05/24/2025 Caregiver: How often do you need to have someone help you when you read instructions, pamphlets, or other written material from your doctor or pharmacy? Not on file 05/24/2025 Financial Risk Answer Date Recorded How hard is it for you to pa y for the very basics like food, housing, medical care, and air conditioning / heating? Not very hard 05/24/2025 Transportation Answer Date Recorded Has the lack of transportati on kept you from meetings, work, or from getting things needed for daily living? No Has the lack of transportati on kept you from medical appointments or from getting medications? No 05/24/2025 Social Isolation Answer Date Recorded How often do you feel lonely or isolated from th ose around you? Never 05/24/2025 Food Risk Answer Date Recorded Within the past 12 months we worried whether our food would run out before we got money to buy more. Never true 05/24/2025 Within the past 12 months th e food we bought just didn't last and we didn't have money to get more. Never true 05/24/2025 Dependent Care Answer Date Recorded Do you need help finding or paying for care for your loved ones. For example, children's institution attendant or elderly care for an older adult? No 05/24/2025 Education Answer Date Recorded Do you think completing more education or training, like finishing a GED, going to college, or learning a trade, would be helpful for you? N/A 05/24/2025 Employment and Income Answer Date Recor ded During the last four weeks, have you been actively looking for work? No 05/24/2025 Living Situation Answer Date Recorded What is your living situation? Unrecognized valu e 05/24/2025 Sex and Gender Information Value Date Recorded Sex Assigned at Not on file Legal Sex Male 1:43 AM EST Gender Identity Not on file Sexual Orientation Not on file Last Filed Vital Signs Vital Sign Reading Time Taken Comments Blood Pressure 130/90 05/24/2025 2:55 PM EDT Pulse 86 05/24/2025 2:55 PM EDT Temperature 36.4 C (97.5 F) 05/24/2025 2:55 PM EDT Respiratory Rate 16 05/24/2025 2:55 PM EDT Oxygen Saturation 95% 05/24/2025 2:55 PM EDT Inhaled Oxygen Concentration - - Weight 128 kg (282 lb 12.8 oz) 05/24/2025 2:55 P M EDT Height 190.5 cm (6' 3 ) 05/24/2025 2:55 PM EDT Body Mass Index 35.35 05/24/2025 2:55 PM EDT Plan of Treatment Upcoming Encounters Date Type Department Care Team (Late st Contact Info) Description 11/25/2025 9:45 AM EST Office Visit Adult [facility] [address], [place] [phone] Artemio Carney MD [address], [place] Health Maintenance Due Date Last Done Comments Zoster Vaccines (1 of 2) 1978 Colorectal Cancer Screening: Colonoscopy 08/26/2021 08/26/2016 COVID-19 Vaccine ( season) 2025 12/09/2022, 03/22/2022, 10/12/2021, Additional history exists Influenza Vaccine (#1) 2025 , 09/15/2023, 10/11/2022, Additional history exists Hypertension/CHF/CAD Annual BMP Blood Test 04/13/2026 04/13/2025, 09/22/2024, 09/22/2024 Falls Risk Assessment 05/24/2026 05/24/2025, 024 Medicare Annual Wellness Visit 05/24/2026 05/24/2025 Social Influencers of Health Screening 05/24/2026 05/24/2025 DTaP,Tdap,and Td Vaccines (2 - Td or Tdap) 06/25/2026 06/25/2016 Cholesterol Screening (Lipid Panel) 04/13/2030 04/13/2025, 09/22/2024, 09/22/2024 RSV Immunization Adult Patients (1 - 1-dose 75+ series) 2034 Hepatitis C Screening Completed 09/04/2016 Pneumococcal Vaccine: 50+ Years Completed 09/22/2024, 2012 Abdominal Aortic Aneurysm (AAA) Screen Addressed 05/24/2025 Overridden with the intention of not completing the topic Depression Screening Completed 05/24/2025, 09/22/20 24 HIB Vaccines Aged Out No longer eligi [...] Procedure Name Priority Date/Time Associated Diagnosis Comments COMPREHENSIVE METABOLIC PANEL Routine 04/13/2025 11:12 AM EDT Hypertension, unspecified type LIPID PANEL WITH REFLEX TO DIRECT LDL Routine 04/13/2025 11:12 AM EDT Hyperlipidemia, unspecified hyperlipidemia type DEPRESSION SCREENING Routine 09/22/2024 FALLS RISK ASSESSMENT Routine 09/22/2024 HEPATITIS C SCREENING Routine 09/04/2016 COLONOSCOPY Routine 08/26/2016 from Last 3 Months or Most Recently Relevant to Health Maintenance Results * Lipid panel with reflex to direct LDL (04/13/2025 11:12 AM EDT) Cholesterol 169 0 - 200 mg/dL LAB CHEMISTRY METHOD 04/13/2025 3:50 PM EDT [facility] Triglycerides 104 0 - 150 mg/dL LAB CHEMISTRY METHOD 04/13/2025 3:50 PM EDT [facility] HDL 86 >=40 mg/dL LAB CHEMISTRY METHOD 04/13/2025 3:50 PM EDT [facility] LDL Calculated 62 0 - 100 mg/dL LAB CHEMISTRY METHOD 04/13/2025 3:50 PM [facility] VLDL Cholesterol Luis A 20.8 mg/dL LAB CHEMISTRY METHOD 04/13/2025 3:50 PM T [facility] Non HDL Chol. (LDL+VLDL) 83 <145 mg/dL LAB CHEMISTRY METHOD 04/13/2025 3:50 PM EDT [facility] Chol/HDL Ratio 2.0 0.0 - 4.4 LAB CHEMISTRY METHOD 04/13/2025 3:50 PM [facility] Blood Venous blood specimen / Unknown Venipuncture / Unknown 04/13/2025 11:12 AM EDT 04/13/2025 11:12 AM EDT us Artemio Carney MD LAB BLOOD ORDERABLES F inal Result [facility] [address] [place] [address], [place] [phone] * Comprehensive metabolic panel (04/13/2025 11:12 AM EDT) Sodium 137 133 - 145 mmol/L LAB CHEMISTRY METHOD 04/13/2025 3:38 PM EDT [facility] Potassium 3.9 3.5 - 5.5 mmol/L LAB CHEMISTRY METHOD 04/13/2025 3:38 PM EDT [facility] Chloride 103 96 - 110 mmol/L LAB CHEMISTRY METHOD 04/13/2025 3:38 PM [facility] CO2 28 21 - 32 mmol/L LAB CHEMISTRY METHOD 04/13/2025 3:38 PM [facility] Anion Gap 6 3 - 11 LAB CHEMISTRY METHOD 04/13/2025 3:38 PM [facility] Glucose 97 70 - 100 mg/dL LAB CHEMISTRY METHOD 04/13/2025 3:38 PM [facility] BUN 16 5 - 25 mg/dL LAB CHEMISTRY METHOD 04/13/2025 3:38 PM [facility] Creatinine 1.03 0.70 - 1.30 mg/dL LAB CHEMISTRY METHOD 04/13/2025 3:38 PM T [facility] eGFR 81 >=60 mL/min/1. 73m2 LAB CHEMISTRY METHOD 04/13/2025 3:38 PM [facility] Comment:Calculation based on the Chronic Kidney Disease Epidemiology Collaboration (CKD-EPI) equation refit without adjustment for race. BUN/Creatinine Ratio 15.5 LAB CHEMISTRY METHOD 04/13/2025 3:38 PM [facility] Calcium 9.0 8.5 - 10.5 mg/dL LAB CHEMISTRY METHOD 04/13/2025 3:38 PM EDT [facility] AST (SGOT) 11 10 - 42 unit/L LAB CHEMISTRY METHOD 04/13/2025 3:38 PM EDT [facility] ALT (SGPT) 27 10 - 60 unit/L LAB CHEMISTRY METHOD 04/13/2025 3:38 PM EDT [facility] Alkaline Phosphatase 77 42 - 121 unit/L LAB CHEMISTRY METHOD 04/13/2025 3:38 PM EDT [facility] Total Protein 7.0 6.0 - 8.0 g/dL LAB CHEMISTRY METHOD 04/13/2025 3:38 PM EDT [facility] Albumin 3.8 3.2 - 5.0 g/dL LAB CHEMISTRY METHOD 04/13/2025 3:38 PM [facility] Total Bilirubin 0.5 0.0 - 1.4 mg/dL LAB CHEMISTRY METHOD 04/13/2025 3:38 PM EDT [facility] Blood Venous blood specimen / Unknown Venipuncture / Unknown 04/13/2025 11:12 AM EDT 04/13/2025 11:12 AM EDT Artemio Carney MD LAB BLOOD ORDERABLES F inal Result [facility] [address] [place] [address], * Falls Risk Assessment (09/22/2024) Pathologist [facility] Falls Risk Assessment abstracted Historical Provider HEALTH MAINTENANCE Final Result * Depression Screening (09/22/2024) Pathologist Pending sale to [facility] Depression Screening abstracted Historical Provider HEALTH MAINTENANCE Final Result * Hepatitis C Screening (09/04/2016) Pathologist Pending sale to [facility] Hepatitis C Screening abstracted Historical Provider HEALTH MAINTENANCE Final Result * Colonoscopy (08/26/2016) Colonoscopy no interpretation , abstracted Anatomical Region Laterality Modality Other Historical Provider HEALTH MAINTENANCE Final Result from Last 3 Months or Most Recently Relevant to Health Maintenance Insurance MEDICARE Care Teams Microbiology Soil Scientist Relationship Specialty Start Date End Date Artemio Carney MD [address] [place] [phone] PCP - General Internal Medicine 01/17/25
== END 2025-11-07 12:54 | disposition home or self-care (01) ==
LOC: HO.HMGCX 12:53
PROVIDERS: PCP Internal Medicine; Visit Provider Nurse Practitioner Family
DX: N20.0 Calculus of kidney (principal)
CPT/HCPCS: 76775

== ENCOUNTER → 2025-11-07 12:57 | Outpatient (BNV) | payer MEDICARE, SELFPAY | PROVIDERS: PCP Internal Medicine; Visit Provider Radiology Diagnostic Radiology | DX: N20.0 Calculus of kidney (principal) | CPT/HCPCS: 76775 ==

== ENCOUNTER 2025-11-21 13:18 | Outpatient (AMB) | payer MEDICARE, SELFPAY ==
--- NOTE | 2025-11-21 13:21 | MHC.OFFVIS ---
Intake Visit Reasons: US/litholink/UA Intake Note: Patient presents for follow up visit for kidney stones and hydronephrosis Urology Medications: tamsulosin Blood Thinner: none Labs done : stone analysis 03/03/25 Imaging: Renal Ultrasound 11/07/25 Golf Starter And Ranger Required: No Accompanied by: Self / Same As Patient Allergies morphine (Morphine) Allergy (Unknown, Verified 03/03/25 10:58) ITCH Medication List - Last Reconciled 11/21/25 by JUDITH Zafar- amlodipine 10 mg PO DAILY atorvastatin 40 mg PO DAILY gabapentin 300 mg PO BEDTIME tamsulosin 0.4 mg PO BEDTIME HPI Comments Details: Ruy is a very pleasant 65-year-old male patient of Dr. Carney. He has a past medical history of hypertension, hyperlipidemia, and nephrolithiasis. He presents to the office today for follow-up. Of note, patient was seen approximately 7 months ago as a new patient for nephrolithiasis at which time stone was sent for stone analysis and repeat imaging was ordered for further assessment evaluation. These results were reviewed and communicated with the patient today. Most recent renal ultrasound 11/17 noted bilateral kidneys are normal in size, contour, and echogenicity. Bilateral kidneys with no hydronephrosis or parenchymal lesions. Left kidney with lower pole nonobstructing calculus measuring 5 mm. Stone analysis 03/18 noted 80% calcium oxalate monohydrate and 20% calcium oxalate dihydrate. A Litholink was ordered however collection was insufficient. We did discussed proper collection of 24 hour urine Litholink. He currently denies any bothersome urinary issues or concerns. He reports he has been attempting to drink 60 oz of water a day. He does discuss his longstanding history of nephrolithiasis and previously following up with [facility]. He denies any previous surgical history for his nephrolithiasis. In office urinalysis results reviewed with the patient today. He denies urinary urgency, urinary frequency, incontinence, nocturia, hematuria, dysuria, foul smelling urine, changes to urinary stream, flank pain, fever, and or chills. He is happy with his current voiding parameters. He otherwise offers no other issues or concerns at this time. [facility] Social History Patient Tobacco Use Status: Never used Tobacco Advance Directives Date on File: 01/11/25 Review of Systems Const All systems reviewed & are unremarkable except as noted in HPI and below Physical Exam Const General: cooperative, healthy appearing, comfortable, no acute distress, well developed, alert and awake Orientation/consciousness: patient oriented x3 Limitations: no limitations HEENT Head: Yes normal to inspection, Yes normocephalic and Yes atraumatic Ears: hearing grossly normal bilaterally Eyes General: appearance normal, both eyes and all related structures Neck Neck: Yes normal visual inspection and Yes trachea midline Chest Chest palpation & inspection: normal inspection of the chest Resp Effort & Inspection: normal respiratory effort and able to speak in complete sentences Cardio Rate: regular rate GI Inspection: Yes normal to inspection General: Yes no CVA tenderness Back/Spine/Pelvis Back: no CVA tenderness Skin General skin exam: no rashes or lesions noted Neuro General: patient oriented x3 Extrem General: Yes normal to inspection Psych Appearance: grossly normal and well kempt Mental Status: mental status grossly normal Speech and movement: Normal speech and movement present and Clear speech present Affect: normal affect Attitude: cooperative Thought process: Normal thought process present Thought content: Normal thought content present Insight: Fair insight present (Psych) Judgement: Fair judgement present (Psych) Results AMB Urinalysis, Automated UA Leukoctes 0 Calos/uL Last Edit by Sarahi Rashid [facility] on 11/21/25 13:32 UA Nitrite Negative Last Edit by Sarahi Rashid [facility] on 11/21/25 13:32 UA Urobilinogen 0.2 mg/dL Last Edit by Sarahi Rashid [facility] on 11/21/25 13:32 UA Protein 0 mg/dL Last Edit by Sarahi Rashid [facility] on 11/21/25 13:32 UA pH 6.0 Last Edit by Sarahi Rashid [facility] on 11/21/25 13:32 UA Blood 0 Lenard/uL Last Edit by Sarahi Rashid [facility] on 11/21/25 13:32 UA Specific Phoenix 1.020 Last Edit by Sarahi Rashid [facility] on 11/21/25 13:32 UA Ketone Negative Last Edit by Sarahi Rashid [facility] on 11/21/25 13:32 UA Bilirubin 0 mg/dL Last Edit by Sarahi Rashid [facility] on 11/21/25 13:32 UA Glucose 0 mg/dL Last Edit by RITO Sánchez on 11/21/25 13:32 Results Reviewed Results Reviewed: Laboratory Last Values Urine pH (Auto) 6.0 11/21/25 13:30 Specific Phoenix (Auto) 1.020 11/21/25 13:30 Urine Protein (Auto) 0 mg/dL 11/21/25 13:30 Glucose (UA)(Auto) 0 mg/dL 11/21/25 13:30 Urine Ketones (Auto) Negative 11/21/25 13:30 Urine Blood (Auto) 0 Lenard/uL 11/21/25 13:30 Urine Nitrite (Auto) Negative 11/21/25 13:30 Urine Bilirubin (Auto) 0 mg/dL 11/21/25 13:30 Urine Urobilinogen (Auto) 0.2 mg/dL 11/21/25 13:30 Leukocyte Esterase (Auto) 0 Calos/uL 11/21/25 13:30 Date of Service: 11/07/25 Procedure(s): US renal BI FINDINGS: RIGHT KIDNEY: [9 x 7.1 x 6.1 cm (SAG x AP x TRV). The kidney is normal in size, contour, and echogenicity. Renal cortical thickness is normal. No calculi or focal parenchymal lesions. No hydronephrosis. LEFT KIDNEY: 12.8 x 6.4 x 5.7 cm (SAG x AP x TRV). The kidney is normal in size, contour, and echogenicity. Renal cortical thickness is normal. No focal parenchymal lesions. No hydronephrosis. Lower pole calculus measuring 5 x 3 x 2 mm. US/US renal BI IMPRESSION: No hydronephrosis. Left kidney lower pole calculus measuring 5 x 3 x 2 mm.. Assessment & Plan Assessment & Plan (1) Nephrolithiasis: Code(s): N20.0 - Calculus of kidney Category: Medical Plan In office urinalysis results reviewed with the patient today; as noted above. Most recent renal imaging results reviewed with the patient today; as noted above. He currently denies any bothersome urinary issues or concerns. He reports be happy with current voiding parameters. We did discussed the importance of adequate hydration relation to nephrolithiasis as well as overall health and well-being. We discussed adding 1 oz of lemon juice to water daily. We did discuss further interventions in risks and benefits of these interventions. All questions were answered. Will continue with surveillance monitoring at this time. Will obtain ultrasound in 6 months. Will obtain KUB in 6 months. Will obtain PSA for further assessment evaluation. Follow-up in 6 months with imaging and labs; or sooner with any issues, concerns, and or questions. Orders: Orders AMB Urinalysis Automated Today N13.8 - Other obstructive and reflux uropathy, N40.1 - Benign prostatic hyperplasia with lower urinary tract symptoms Prostate Specific Antigen Today N40.0 - Benign prostatic hyperplasia without lower urinary tract symptoms US renal BI 6 Months N20.0 - Calculus of kidney XR KUB 6 Months N20.0 - Calculus of kidney Patient Instructions: The patient had an opportunity to ask questions regarding the treatment plan. All questions were answered. Physical exam, labs, and imaging were discussed and reviewed in detail. As well as risks, benefits, and discussion of treatment choices. No major barriers to understanding were identified. The patient expressed understanding and agreement with the above treatment plan. The patient was made aware they should contact our office by phone for worsening of their current condition, the appearance of new symptoms, or with any questions or concerns. Compliance is encouraged with any medications and follow up testing that is ordered. It is a privilege to be allowed the opportunity to participate in? your urological care.? Again, if you have any questions or concerns If you have any questions or concerns please do not hesitate to contact me. The office is [phone]. This note is constructed using voice recognition software. While every effort has been made to ensure accuracy hvac technician errors may have been included. Yours sincerely, KANDICE Zafar Coding Level of Care Code Est Pt Level 3 (62699) Add On Problem Visit Only Diagnoses Nephrolithiasis N20.0
--- OUTSIDE RECORDS SUMMARY | 2025-11-21 15:21 | XMS_ITS | Encounter Summary ---
Author Organization [facility] Address [address] [place] [address] Care Team Providers Care Dry Wall Installer Name Role Phone Denver Arora MD Primary Care Provider [phone] Pcp, No Primary Care Provider Artemio Pino MD Primary Care Provider Jovita figueroa Encounter Details Date Type Department Care Team (Late st Contact Info) Description 08/29/2023 Scanned Document [place] [address] Chino Pereira MD [address] [place] [address] Social History Tobacco Use Types Packs/Day Years [...] on filedocumented in this encounter Care Teams Dry Wall Installer Relationship Specialty Start Date End Date Denver Arora MD PCP - General 06/17/23 04/19/24 Pcp, No PCP - General General Medicine 04/20/24 05/10/24 Artemio Carney MD PCP - General Internal Medicine 05/11/24 documented as of this encounter
--- OUTSIDE RECORDS SUMMARY | 2025-11-21 15:21 | XMS_ITS | Encounter Summary ---
Author Organization [facility] Address [address] [place] [address] Care Team Providers Care Biomedical Service Engineer Name Role Phone Denver Arora MD Primary Care Provider [phone] Pcp, No Primary Care Provider Artemio Pino MD Primary Care Provider Jovita figueroa Encounter Details Date Type Department Care Team (Late st Contact Info) Description 08/20/2023 Scanned Document [facility] [place] [address] Chino Pereira MD [address] [place] [address] Social History Tobacco Use Types Packs/Day Years [...] on filedocumented in this encounter Care Teams Biomedical Service Engineer Relationship Specialty Start Date End Date Denver Arora MD PCP - General 06/17/23 04/19/24 Pcp, No PCP - General General Medicine 04/20/24 05/10/24 Artemio Carney MD PCP - General Internal Medicine 05/11/24 documented as of this encounter
--- OUTSIDE RECORDS SUMMARY | 2025-11-21 15:21 | XMS_ITS | Encounter Summary ---
Author Organization [facility] Address [address] [place] [address] Care Team Providers Care Application Trainer Name Role Phone Artemio Carney MD Primary Care Provider Jovita figueroa Encounter Details Date Type Department Care Team (Late st Contact Info) Description 04/26/2025 Scanned Document [facility] [address] [phone] Constantino Phipps MD [address] [place] [address] Social History Tobacco Use Types Packs/Day Years [...] Trainer Relationship Specialty Start Date End Date Artemio Carney MD PCP - General Internal Medicine 05/11/24 documented as of this encounter
--- OUTSIDE RECORDS SUMMARY | 2025-11-21 15:21 | XMS_ITS | Encounter Summary ---
Author Organization [facility] Address [address] [place] [address] Care Team Providers Care Rubber Goods Inspector Name Role Phone Artemio Carney MD Primary Care Provider Jovita figueroa Encounter Details Date Type Department Care Team ([facility] st Contact Info) Description 05/18/2024 Scanned Document [facility] [place] [address] Chino Pereira MD [address] [place] [address] Social History Tobacco Use Types Packs/Day Years [...] on filedocumented in this encounter Care Teams Rubber Goods Inspector Relationship Specialty Start Date End Date Artemio Carney MD PCP - General Internal Medicine 05/11/24 documented as of this encounter
--- OUTSIDE RECORDS SUMMARY | 2025-11-21 15:21 | XMS_ITS | Encounter Summary ---
Author Organization [facility] Address [address] [place] [address] Care Team Providers Care Piano Maker Name Role Phone Artemio Carney MD Primary Care Provider Jovita figueroa Encounter Details Date Type Department Care Team (Late st Contact Info) Description 05/12/2024 Scanned Document [facility] [address] [place] [address] Ariela Riddle [address] [facility] [address] [place] [address] Social History Tobacco Use Types Packs/Day Years [...] on filedocumented in this encounter Care Teams Piano Maker Relationship Specialty Start Date End Date Artemio Carney MD PCP - General Internal Medicine 05/11/24 documented as of this encounter
--- OUTSIDE RECORDS SUMMARY | 2025-11-21 15:21 | XMS_ITS | Clinical Summary ---
Author Organization [facility] Address [address] [place] [address] Care Team Providers Care Authorization Rep Name Role Phone Artemio Carney MD Primary [...] Encounters Date Type Department Care Team Description 11/15/2025 Scanned Document [facility] [address] [phone] Constantino Phipps MD 09/16/2025 10:15 AM EDT Office Visit Orthopedic [address] [address] Constantino Phipps MD 04/26/25 L shoulder RCR [...] 09/15/2023, Additional history exists COVID-19 Vaccine ( - season) 2025 12/09/2022, 10/12/2021, 12/20/2020, Additional history exists RSV Vaccine 50 years and older and Patients (1 - 1-dose 75+ series) 2034 Hepatitis B Vaccines Aged Out No long er eligible based on patient's age to complete this topic Insurance [employer]VELERS MEDICARE PART A & B TRAVELERS Care Teams Authorization Rep Relationship Specialty Start Date End Date Artemio Carney MD PCP - General Internal Medicine 05/11/24
--- OUTSIDE RECORDS SUMMARY | 2025-11-21 15:21 | XMS_ITS | Encounter Summary ---
Author Organization [facility] Address [address] [place] [address] Care Team Providers Care Vp Strategic Partnerships Name Role Phone Pcp, Sangita Primary Care Provider Artemio Pino MD Primary Care Provider Jovita figueroa Encounter Details Date Type Department Care Team (Late st Contact Info) Description 04/27/2024 Scanned Document [facility] [place] [address] Chino Pereira MD [address] [place] [address] Social History Tobacco Use Types Packs/Day Years [...] on filedocumented in this encounter Care Teams Vp Strategic Partnerships Relationship Specialty Start Date End Date Pcp, Sangita PCP - General General Medicine 04/20/24 05/10/24 Artemio Carney MD PCP - General Internal Medicine 05/11/24 documented as of this encounter
--- OUTSIDE RECORDS SUMMARY | 2025-11-21 15:21 | XMS_ITS | Clinical Summary ---
Author Organization [facility] Address [address] [place] [phone] Phone Care Team Providers Care Supervisor Records Change Name Role Phone Artemio Carney MD Primary [...] hesita ncy 09/14/2020 Overview (11/22/2024): Follows with [facility] urology. Cervical adenopathy 12/24/2019 Thyroid nodule 03/09/2019 [...] HERNIA REPAIR/UMB OTHER SURGICAL HISTORY 06/06 PROCEDURE: [place] OSTECTOMY CALCANEUS SPUR W/WO PLNTAR FASCIAL RLS [...] disea se) stage 3, GFR 30-59 ml/min ([facility]) Adrenal adenoma 12/31/2017 DX:Adrenal adeno [...] care for your loved ones. For example, childcare attendant or elderly care for an older [...] 9:45 AM EST Office Visit Adult Medicine [facility] [address], [place] [phone] Artemio Carney MD [address] [place], [place] Health Maintenance Due Date Last Done [...] Name Priority Date/Time Associated Diagnosis Comments EXTERNAL ULTRASOUND REPORT 11/07/2025 COMPREHENSIVE METABOLIC PANEL Routine 04/13/2025 11:12 AM EDT Hypertension, unspecified type LIPID PANEL WITH REFLEX TO DIRECT LDL Routine 04/13/2025 11:12 AM EDT Hyperlipidemia, unspecified hyperlipidemia type DEPRESSION SCREENING Routine 09/22/2024 FALLS RISK ASSESSMENT Routine 09/22/2024 HEPATITIS C SCREENING Routine 09/04/2016 COLONOSCOPY Routine 08/26/2016 from Last 3 Months or Most Recently Relevant to Health Maintenance Results * External Ultrasound Report (11/07/2025) Anatomical Region Laterality Modality Ultrasound us Provider [facility] US PROCEDURES Final Result * Lipid panel with reflex to direct LDL (04/13/2025 11:12 AM EDT) Cholesterol 169 0 - 200 mg/dL LAB CHEMISTRY [facility] Triglycerides 104 0 - 150 mg/dL LAB CHEMISTRY METHOD 04/13/2025 3:50 PM [facility] HDL 86 >=40 mg/dL LAB CHEMISTRY METHOD 04/13/2025 3:50 PM [facility] LDL Calculated 62 0 - 100 mg/dL LAB CHEMISTRY METHOD 04/13/2025 3:50 PM T [facility] VLDL Cholesterol Luis A 20.8 mg/dL LAB CHEMISTRY METHOD 04/13/2025 3:50 PM [facility] Non HDL Chol. (LDL+VLDL) 83 <145 mg/dL LAB CHEMISTRY METHOD 04/13/2025 3:[facility] Chol/HDL Ratio 2.0 0.0 - 4.4 LAB CHEMISTRY METHOD 04/13/2025 3:50 PM [facility] Blood Venous blood specimen / Unknown Venipuncture / Unknown 04/13/2025 11:12 AM EDT 04/13/2025 11:12 AM EDT Artemio Carney MD LAB BLOOD ORDERABLES F inal Result [facility] [address] [place] [address], [place] [phone] * Comprehensive metabolic panel (04/13/2025 11:12 AM EDT) Sodium 137 133 - 145 mmol/L LAB CHEMISTRY METHOD 04/13/2025 3:38 PM [facility] Potassium 3.9 3.5 - 5.5 mmol/L LAB CHEMISTRY METHOD 04/13/2025 3:38 PM [facility] Chloride 103 96 - 110 mmol/L LAB CHEMISTRY METHOD 04/13/2025 3:38 PM [facility] CO2 28 21 - 32 mmol/L LAB CHEMISTRY METHOD 04/13/2025 3:38 PM [facility] Anion Gap 6 3 - 11 LAB CHEMISTRY METHOD 04/13/2025 3:38 PM [facility] Glucose 97 70 - 100 mg/dL LAB CHEMISTRY METHOD 04/13/2025 3:38 PM [facility] BUN 16 5 - 25 mg/dL LAB CHEMISTRY METHOD 04/13/2025 3:38 PM [facility] Creatinine 1.03 0.70 - 1.30 mg/dL LAB CHEMISTRY METHOD 04/13/2025 3:38 PM [facility] eGFR 81 >=60 mL/min/1. 73m2 LAB CHEMISTRY METHOD 04/13/2025 3:38 PM [facility] Comment:Calculation based on the Chronic Kidney Disease Epidemiology Collaboration (CKD-EPI) equation refit without adjustment for race. BUN/Creatinine Ratio 15.5 LAB CHEMISTRY METHOD 04/13/2025 3:38 PM T [facility] Calcium 9.0 8.5 - 10.5 mg/dL LAB CHEMISTRY METHOD 04/13/2025 3:38 PM [facility] AST (SGOT) 11 10 - 42 unit/L LAB CHEMISTRY METHOD 04/13/2025 3:38 PM [facility] ALT (SGPT) 27 10 - 60 unit/L LAB CHEMISTRY METHOD 04/13/2025 3:38 PM T [facility] Alkaline Phosphatase 77 42 - 121 unit/L LAB CHEMISTRY METHOD 04/13/2025 3:38 PM [facility] Total Protein 7.0 6.0 - 8.0 g/dL LAB CHEMISTRY METHOD 04/13/2025 3:38 PM [facility] Albumin 3.8 3.2 - 5.0 g/dL LAB CHEMISTRY METHOD 04/13/2025 3:38 PM [facility] Total Bilirubin 0.5 0.0 - 1.4 mg/dL LAB CHEMISTRY METHOD 04/13/2025 3:38 PM [facility] Blood Venous blood specimen / Unknown Venipuncture / Unknown 04/13/2025 11:12 AM EDT 04/13/2025 11:12 AM EDT Artemio Carney MD LAB BLOOD ORDERABLES F inal Result [facility] [address] [place] [address], * Falls Risk Assessment (09/22/2024) Falls Risk Assessment abstracted us Elena Kirkpatrick MD HEALTH MAINTENANCE Final Result * Depression Screening (09/22/2024) Depression Screening abstracted Historical Provider HEALTH MAINTENANCE Final Result * Hepatitis C Screening (09/04/2016) Hepatitis C Screening abstracted Historical Provider HEALTH MAINTENANCE Final Result * Colonoscopy (08/26/2016) Colonoscopy no interpretation , abstracted Anatomical Region Laterality Modality Other [facility] Provider HEALTH MAINTENANCE Final Result from Last 3 Months or Most Recently Relevant to Health Maintenance Insurance Care Teams Supervisor Records Change Relationship Specialty Start Date End Date Artemio Carney MD [address] [place] [phone] PCP - General Internal Medicine 01/17/25
--- OUTSIDE RECORDS SUMMARY | 2025-11-21 15:21 | XMS_ITS | Encounter Summary ---
Author Organization [facility] Address [address] [place] [address] Care Team Providers Care Costume Director Name Role Phone Denver Arora MD Primary Care Provider [phone] Pcp, No Primary Care Provider Artemio Pino MD Primary Care Provider Jovita figueroa Encounter Details Date Type Department Care Team (Late st Contact Info) Description 06/02/2023 Scanned Document [facility] [place] [address] Chino Pereira MD [address] [place] [address] Social History Tobacco Use Types Packs/Day Years [...] on filedocumented in this encounter Care Teams Costume Director Relationship Specialty Start Date End Date Denver Arora MD PCP - General 06/17/23 04/19/24 Pcp, No PCP - General General Medicine 04/20/24 05/10/24 Artemio Carney MD PCP - General Internal Medicine 05/11/24 documented as of this encounter
--- OUTSIDE RECORDS SUMMARY | 2025-11-21 15:21 | XMS_ITS | Encounter Summary ---
Author Organization [facility] Address [address] [place] [address] Care Team Providers Care Access Consultant Name Role Phone Artemio Carney MD Primary Care Provider Jovita figueroa Encounter Details Date Type Department Care Team (Late st Contact Info) Description 05/24/2024 Scanned Document [facility] [address] [place] [address] Ariela Riddle [address] [place] [address] Social History Tobacco Use Types Packs/Day Years [...] on filedocumented in this encounter Care Teams Access Consultant Relationship Specialty Start Date End Date Artemio Carney MD PCP - General Internal Medicine 05/11/24 documented as of this encounter
--- OUTSIDE RECORDS SUMMARY | 2025-11-21 15:21 | XMS_ITS | Encounter Summary ---
Author Organization [facility] Address [address] [place] [address] Care Team Providers Care Lead Blender Name Role Phone Pcp, Sangita Primary Care Provider Artemio Pino MD Primary Care Provider Jovita figueroa Encounter Details Date Type Department Care Team (Late st Contact Info) Description 04/22/2024 Scanned Document [place] [address] Chino Pereira MD [address] [place] [address] Social History Tobacco Use Types Packs/Day Years [...] on filedocumented in this encounter Care Teams Lead Blender Relationship Specialty Start Date End Date Pcp, Sangita PCP - General General Medicine 04/20/24 05/10/24 Artemio Carney MD PCP - General Internal Medicine 05/11/24 documented as of this encounter
--- OUTSIDE RECORDS SUMMARY | 2025-11-21 15:21 | XMS_ITS | Encounter Summary ---
Author Organization [facility] Address [address] [place] [address] Care Team Providers Care Bowl Topper Name Role Phone Artemio Carney MD Primary Care Provider Jovita figueroa Encounter Details Date Type Department Care Team (Late st Contact Info) Description 06/15/2025 Scanned Document [facility] [address] [phone] Constantino Phipps MD [address] [place] [address] Social History Tobacco Use Types Packs/Day Years [...] on filedocumented in this encounter Care Teams Bowl Topper Relationship Specialty Start Date End Date Artemio Carney MD PCP - General Internal Medicine 05/11/24 documented as of this encounter
--- OUTSIDE RECORDS SUMMARY | 2025-11-21 15:21 | XMS_ITS | Encounter Summary ---
Author Organization [facility] Address [address] [place] [address] Care Team Providers Care Show Card Letterer Name Role Phone Pcp, Sangita Primary Care Provider Artemio Pino MD Primary Care Provider Jovita figueroa Encounter Details Date Type Department Care Team (Late st Contact Info) Description 04/27/2024 Scanned Document [facility] [address] Chino Pereira MD [address] [place] [address] Social History Tobacco Use Types Packs/Day Years [...] on filedocumented in this encounter Care Teams Show Card Letterer Relationship Specialty Start Date End Date Pcp, Sangita PCP - General General Medicine 04/20/24 05/10/24 Artemio Carney MD PCP - General Internal Medicine 05/11/24 documented as of this encounter
--- OUTSIDE RECORDS SUMMARY | 2025-11-21 15:21 | XMS_ITS | Encounter Summary ---
Author Organization [facility] Address [address] [place] [id number] Care Team Providers Care Forms Examiner Name Role Phone Artemio Carney MD Primary Care Provider Jovita figueroa Encounter Details Date Type Department Care Team (Late st Contact Info) Description 11/15/2025 Scanned Document [facility] [address] [phone] Constantino Phipps MD [address] [place] [id number] Social History Tobacco Use Types Packs/Day Years [...] on filedocumented in this encounter Care Teams Forms Examiner Relationship Specialty Start Date End Date Artemio Carney MD PCP - General Internal Medicine 05/11/24 documented as of this encounter
--- OUTSIDE RECORDS SUMMARY | 2025-11-21 15:21 | XMS_ITS | Encounter Summary ---
Author Organization [facility] Address [address] [place] [id number] Care Team Providers Care Sock Drier Name Role Phone Pcp, Sang[place] Primary Care Provider Artemio Pino MD Primary Care Provider Jovita figueroa Encounter Details Date Type Department Care Team (Late st Contact Info) Description 05/10/2024 Scanned Document [place] [address] Chino Pereira MD [address] [place] [address] Social History Tobacco Use Types Packs/Day Years [...] on filedocumented in this encounter Care Teams Sock Drier Relationship Specialty Start Date End Date Pcp, No PCP - General General Medicine 04/20/24 05/10/24 Artemio Carney MD PCP - General Internal Medicine 05/11/24 documented as of this encounter
--- OUTSIDE RECORDS SUMMARY | 2025-11-21 15:21 | XMS_ITS | Encounter Summary ---
Author Organization [facility] Address [address] [place] [id number] Care Team Providers Care Security System Administrator Name Role Phone Denver Arora MD Primary Care Provider [phone] Pcp, No Primary Care Provider Artemio Pino MD Primary Care Provider Jovita figueroa Encounter Details Date Type Department Care Team (Late st Contact Info) Description 08/20/2023 Scanned Document [facility] [place] [address] Chino Pereira MD [address] [place] [address] Social History Tobacco Use Types Packs/Day Years [...] filedocumented in this encounter Care Teams Security System Administrator Relationship Specialty Start Date End Date Denver Arora MD PCP - General 06/17/23 04/19/24 Pcp, No PCP - General General Medicine 04/20/24 05/10/24 Artemio Carney MD PCP - General Internal Medicine 05/11/24 documented as of this encounter
== END 2025-11-21 14:52 | disposition home or self-care (01) ==
LOC: HO.HUSH 13:19
PROVIDERS: PCP Internal Medicine; Visit Provider Nurse Practitioner Family
DX: N40.1 Benign prostatic hyperplasia with lower urinary tract symptoms (principal); N13.8 Other obstructive and reflux uropathy; N20.0 Calculus of kidney
CPT/HCPCS: 99213; G2211

== ENCOUNTER → 2025-11-21 13:18 | Outpatient (BNVA) | payer MEDICARE, SELFPAY | PROVIDERS: PCP Internal Medicine; Visit Provider Nurse Practitioner Family | DX: N40.1 Benign prostatic hyperplasia with lower urinary tract symptoms (principal); N13.8 Other obstructive and reflux uropathy; N20.0 Calculus of kidney | CPT/HCPCS: 81003; 99212 ==